=== PATIENT | female | born 1955 | race Caucasian/White ===

== ENCOUNTER 2016-06-01 10:11 | Observation (INO) | payer MEDICARE ==
[~2016-06-01] VITALS: Ht 165.1 cm; Wt 50.9 kg
[~2016-06-01 10:11] MED LIST changes: -ALB2.5NEB INH; -AUGM875T27 PO; -BACITAB3 PO; -INSUHUMDS SC; -LANTINJ4 SC; -LOSA25TA8 PO; -MAGN400T5 PO; -METO12TA PO; -MYCO1TAB PO; -PRED5TA PO; -PRESCAP6 PO; -SIMV20TA2 PO; -TACR1CAP3 PO; -TYLE325T5 PO
[2016-06-01 11:29] LABS: BASO % 0.3 % (0.0-1.0); EOS # 0.1 K/mm3 (0.0-0.50); EOS % 1.2 % (0.0-3.0); LARGE UNSTAINED CELL # 0.4 K/mm3 (0.0-0.4); LARGE UNSTAINED CELL % 4.4 % (0.0-4.0); LYMPH % 29.4 % (24.0-44.0); MEAN CORPUSCULAR HEMOGLOBIN 30.8 pg (27.0-33.0); MEAN CORPUSCULAR VOLUME 96.4 fl (80.0-96.0); MONO # 0.8 K/mm3 (0.0-0.8); MONO % 7.9 % (0.0-5.0); NEUTROPHILS # 5.7 K/mm3 (1.8-7.7); NEUTROPHILS % 56.8 % (36.0-66.0); PLATELET COUNT, AUTOMATED 242 k/mm3 (150-450); RED CELL DISTRIBUTION WIDTH 12.9 % (11.5-14.5); WHITE BLOOD COUNT 10.1 K/mm3 (4.0-10.0)
[2016-06-01 11:40] LABS: CREATININE FOR GFR 1.17 MG/DL (0.55-1.02); GLOMERULAR FILTRATION RATE 50.4 (>51); POTASSIUM SERUM 4.7 MEQ/L (3.5-5.1)
--- NOTE | 2016-06-01 11:46 | REP ---
Chest x-ray: Two views. History: Chest pain and cough. Comparison chest x-ray April 20, 2012. A chest CT is reviewed from January 09, 2013. Findings: There is a large pleural-based mass projecting in the left posterolateral chest wall superiorly unchanged from the 2012 prior study. There is peripherally calcified on chest CT from 2013. There is also calcific pleural plaquing along the left lateral chest wall which is unchanged from the 2012 study as well. Left hemidiaphragm is slightly elevated as before with blunting of the lateral pleural angle. These changes are chronic. There are surgical clips projecting in the right breast soft tissues as before. The lungs are otherwise clear. Pleural angles are sharp posteriorly. Heart is not enlarged. The aorta is slightly tortuous. Impression: No active cardiopulmonary disease. Chronic calcific pleural plaquing and chronic calcific pleural mass lesion seen on the left. Signed by Tawanda Rodriguez MD 06/01/2016 12:25 P
[2016-06-01] MEDS ORDERED: AZITHROMYCIN INJ 500MG VIAL (J0456) As Ordered ONE (12:17)
[2016-06-01] MEDS ORDERED: NS 1,000 ML IV SCH (13:19)
[2016-06-01] MEDS ORDERED: MAGN400T5 PO (13:23)
[2016-06-01] MEDS ORDERED: PRESCAP6 PO (13:23)
[2016-06-01] MEDS ORDERED: INSUHUMDS SC (13:23)
[2016-06-01] MEDS ORDERED: LOSA25TA8 PO (13:23)
[2016-06-01] MEDS ORDERED: METO12TA PO (13:23)
[2016-06-01] MEDS ORDERED: TYLE325T5 PO (13:23)
[2016-06-01] MEDS ORDERED: TACR1CAP3 PO (13:23)
[2016-06-01] MEDS ORDERED: LANTINJ4 SC (13:23)
[2016-06-01] MEDS ORDERED: MYCO1TAB PO (13:23)
[2016-06-01] MEDS ORDERED: BACITAB3 PO (13:23)
[2016-06-01] MEDS ORDERED: SIMV20TA2 PO (13:24)
[2016-06-01] MEDS ORDERED: PRED5TA PO (13:24)
[2016-06-01] MEDS ORDERED: ONDANSETRON 4MG/2ML VIAL (J2405) IV PRN (13:30)
[2016-06-01] MEDS: HEPARIN SOD (PORCINE) 5000 UNITS/ML VIAL SC SCH ×2 (14:00→22:00)
[2016-06-01 14:30] VITALS: BP 147/50
[2016-06-01] MEDS ORDERED: ALBUTEROL SULFATE 2.5 MG/0.5 ML INH NEB SOLN INH PRN (14:30)
[2016-06-01] MEDS ORDERED: guaiFENesin DM LIQ 10ML UD PO PRN (14:30)
--- NOTE | 2016-06-01 14:31 | EDDOCDS ---
Physician Documentation [facility] Name: Yadira Parra Age: 61 yrs Sex: Female : 1955 Arrival Date: 06/01/2016 Time: 10:11 Bed 8 Private MD: Kailey Bowen P Disposition: 06/01/16 12:33 Hospitalization ordered by [facility] Kirk for Inpatient Admission. Preliminary diagnosis are Acute pharyngitis, Fever, unspecified. - Bed requested for 4 [place]. - Status is Inpatient Admission. ml6 - Condition is Stable. - Problem is new. - Symptoms have improved. Historical: - Allergies: Halcion (hallucinations); Nifedipine (heart races); HYDRALAZINE (Unknown); - Home Meds: 1. tacrolimus 1 mg oral cap every 12 hours (Last dose: 06/01/2016 10:00) 2. Myfortic 180 mg oral TbEC twice a day (Last dose: 06/01/2016 10:00) 3. prednisone 5 mg Oral tab once daily (Last dose: 06/01/2016 10:00) 4. metoprolol tartrate 25 mg Oral tab 1 tab 2 times per day (Last dose: 06/01/2016 10:00) 5. magnesium oxide 400 mg Oral cap 400 mg twice a day (Last dose: 06/01/2016 10:00) 6. losartan oral 20 mg oral 1 tab once daily (Last dose: 06/01/2016 10:00) 7. Humalog 100 unit/mL Sub-Q crtg sliding scale TID 7 units at 0720 8. Lantus 100 unit/mL Sub-Q soln between 12-14 units at bedtime depending on her FSBS . 14 units kast PM - PMHx: Diabetes - IDDM: controlled; Hypertension; kidney transplant; end stage renal disease; ruptured pancreas; - PSHx: Rotator Cuff Repair- Left; Kidney Transplant- Left; Kidney Transplant- Right; Hip Arthroplasty, Left; Hip Arthroplasty, Right; Cataract Surgery- Bilateral; Cholecystectomy; Splenectomy; - Social history: Smoking status: Patient uses tobacco products, light tobacco smoker. No barriers to communication noted, The patient speaks fluent Croatian. - Family history: Not pertinent. - : The pt / caregiver states he / she is not on anticoagulants. Home medication list is obtained from the patient. - Exposure Risk Screening:: None identified. Vital Signs: 06/01 10:12 BP 156 / 97; Pulse 67; Resp 16; Temp 98.7(O); Pulse Ox 98% on R/A; Weight 53.52 kg / elp 117.99 lbs (R); Height 5 ft. 5 in. (165.10 cm) (R); 12:23 BP 144 / 81; Pulse 62; Resp 18; Temp 98.9(O); Pulse Ox 98% on R/A; Pain 0/10; srm 14:19 BP 138 / 74; Pulse 62; Resp 16; Temp 98.3(O); Pulse Ox 98% on R/A; Pain 0/10; ml6 10:12 Body Mass Index 19.64 (53.52 kg, 165.10 cm) elp MDM: 10:33 -Blood Culture (Adults Only), peripheral from different site, or from device/port/PICC fg etc. if present ordered. 10:33 Obtain sample by nasal aspiration ordered. fg 10:33 IV Saline Lock ordered. fg 10:35 CBC with Diff Ordered. EDMS 10:35 Basic Metabolic Profile Ordered. EDMS 10:35 -Blood Culture Ordered. EDMS 10:35 -Influenza A&B Rapid Antigen - Nose Ordered. EDMS 10:35 Chest, 2 View (pa\E\lat) Ordered. EDMS 11:03 -Blood Culture (Adults Only), peripheral from different site, or from device/port/PICC deg etc. if present complete. 11:04 BLOOD CULTURES Ordered. EDMS 11:40 Strep Screen, Nursing ordered. fg 11:51 Financial registration complete. lg 12:05 [facility] Payment Agreement was scanned into [employer] and attached to record. lg 12:13 azithromycin 500 mg IVPB once over 1 hrs; dilute in 250mL of D5W or NS ordered. fg 12:27 Lactic Acid (Scott tube on ice) Ordered. EDMS 13:24 Admission / Observation Status ordered. EDMS 13:24 CONSISTENT CARBOHYDRATES ordered. EDMS 13:24 2 GRAM SODIUM DIET ordered. EDMS 14:19 CT Chest without contrast Ordered. EDMS 14:20 RESPIRATORY PANEL Ordered. EDMS 14:20 SPUTUM CULTURE AND GRAM STAIN Ordered. EDMS 14:26 CARDIAC INJURY PROFILE Ordered. EDMS 14:26 CARDIAC INJURY PROFILE Ordered. EDMS 14:26 TROPONIN Ordered. EDMS 14:26 TROPONIN Ordered. EDMS Administered Medications: 12:23 Drug: azithromycin 500 mg [azithromycin 500 mg intravenous solution] Route: IVPB; srm Infused Over: 1 hrs; Site: right forearm; Signatures: Dispatcher [employer] EDLanie Hampton, Correction Officer Unit deg Tomasa Abreu RN RN kpj Ganter, LoriLee, Reg Reg lg Ruben Morgan RN RN ml6 Mariela Pham MD MD Haylee Lofton RN srm The chart was reviewed and I authenticate all verbal orders and agree with the evaluation and treatment provided.Attachments: 12:05 [facility] Payment Agreement lg MTDD
--- NOTE | 2016-06-01 14:31 | EDDOCDS ---
Nurse's Notes [facility] Name: Yadira Parra Age: 61 yrs Sex: Female : 1955 Arrival Date: 06/01/2016 Time: 10:11 Bed 8 Private MD: Kailey Bowen P Diagnosis: Acute pharyngitis;Fever, unspecified Presentation: 06/01 10:16 Presenting complaint: Patient states: cough congestion and fever x 1 week,is a kidney [facility] transplant pt. Dr Bowen sent pt here for admission. Adult Sepsis Screening: The patient does not have new or worsening altered mentation. Patient's respiratory rate is less than 22. Systolic blood pressure is greater than 100. Patient has a qSOFA score of 0- Negative Sepsis Screen. Suicide/Homicide risk assessment- the patient denies having any suicidal and/or homicidal ideations and does not present with any other emotional, behavioral or mental health complaints. Status: Patient is not a client services associate or dependent. Transition of care: patient was received from Nephrology office. 10:16 Acuity: STEVEN Level 3 [facility] 10:16 Method Of Arrival: Walkin/Carried/Asstd [facility] Triage Assessment: 10:30 General: Appears in no apparent distress, Behavior is appropriate for age, pleasant. j Pain: Denies pain. Pt Declines HIV testing. Neurological: Level of Consciousness is awake, alert, Oriented to person, place, time. Respiratory: Airway is patent Respiratory effort is even, unlabored, Respiratory pattern is regular, symmetrical, Reports cough that is non-productive. Derm: Skin is pink, warm & dry. Historical: - Allergies: Halcion (hallucinations); Nifedipine (heart races); HYDRALAZINE (Unknown); - Home Meds: 1. tacrolimus 1 mg oral cap every 12 hours (Last dose: 06/01/2016 10:00) 2. Myfortic 180 mg oral TbEC twice a day (Last dose: 06/01/2016 10:00) 3. prednisone 5 mg Oral tab once daily (Last dose: 06/01/2016 10:00) 4. metoprolol tartrate 25 mg Oral tab 1 tab 2 times per day (Last dose: 06/01/2016 10:00) 5. magnesium oxide 400 mg Oral cap 400 mg twice a day (Last dose: 06/01/2016 10:00) 6. losartan oral 20 mg oral 1 tab once daily (Last dose: 06/01/2016 10:00) 7. Humalog 100 unit/mL Sub-Q crtg sliding scale TID 7 units at 0720 8. Lantus 100 unit/mL Sub-Q soln between 12-14 units at bedtime depending on her FSBS . 14 units kast PM - PMHx: Diabetes - IDDM: controlled; Hypertension; kidney transplant; end stage renal disease; ruptured pancreas; - PSHx: Rotator Cuff Repair- Left; Kidney Transplant- Left; Kidney Transplant- Right; Hip Arthroplasty, Left; Hip Arthroplasty, Right; Cataract Surgery- Bilateral; Cholecystectomy; Splenectomy; - Social history: Smoking status: Patient uses tobacco products, light tobacco smoker. No barriers to communication noted, The patient speaks fluent Malaysian. - Family history: Not pertinent. - : The pt / caregiver states he / she is not on anticoagulants. Home medication list is obtained from the patient. - Exposure Risk Screening:: None identified. Screenin:03 Screening information is obtained from the patient. Fall risk: No risks identified. ml6 Assistance ADL's: requires no assistance with activities of daily living. Abuse/DV Screen: The patient / caregiver reports he/she is: not in a situation that causes fear, pain or injury. Nutritional screening: No deficits noted. Advance Directives: Currently, there is no health care proxy. home support is adequate. Assessment: 11:19 General: Appears in no apparent distress, comfortable, Behavior is appropriate for age, jo3 cooperative, pleasant. Neurological: Level of Consciousness is awake, alert, Oriented to person, place, time. Cardiovascular: No deficits noted. Respiratory: Airway is patent Respiratory effort is even, unlabored. Derm: Skin is pink, warm & dry. 11:32 General: Appears in no apparent distress, comfortable, Behavior is appropriate for age, ml6 cooperative. Pain: Denies pain. Neurological: No deficits noted. Level of Consciousness is awake, alert, Oriented to person, place, time. Cardiovascular: No deficits noted. Capillary refill < 3 seconds is brisk in bilateral fingers toes Heart tones S1 S2 present Edema is absent. Pulses are all present. 12:23 General: Appears in no apparent distress, comfortable, Behavior is appropriate for age, ml6 cooperative. Pain: Denies pain. Neurological: No deficits noted. Level of Consciousness is awake, alert, Oriented to person, place, time. Cardiovascular: No deficits noted. Capillary refill < 3 seconds is brisk in bilateral fingers toes Heart tones S1 S2 present Edema is absent. Pulses are all present. Respiratory: No deficits noted. Airway is patent Respiratory effort is even, unlabored, Respiratory pattern is regular, symmetrical, Breath sounds are clear bilaterally. 13:30 Reassessment: Patient appears in no apparent distress at this time. Patient denies pain ml6 at this time. Patient states feeling better. Patient states symptoms have improved. 14:17 General: Appears in no apparent distress, comfortable, Behavior is appropriate for age, ml6 cooperative. Pain: Denies pain. Neurological: No deficits noted. Level of Consciousness is awake, alert, Oriented to person, place, time. Cardiovascular: No deficits noted. Capillary refill < 3 seconds is brisk in bilateral fingers toes. Respiratory: No deficits noted. Airway is patent Respiratory effort is even, unlabored, Respiratory pattern is regular, symmetrical, Breath sounds are clear. GI: No deficits noted. Abdomen is flat, non- distended Bowel sounds present X 4 quads. Vital Signs: 10:12 BP 156 / 97; Pulse 67; Resp 16; Temp 98.7(O); Pulse Ox 98% on R/A; Weight 53.52 kg (R); elp Height 5 ft. 5 in. (165.10 cm) (R); 12:23 BP 144 / 81; Pulse 62; Resp 18; Temp 98.9(O); Pulse Ox 98% on R/A; Pain 0/10; srm 14:19 BP 138 / 74; Pulse 62; Resp 16; Temp 98.3(O); Pulse Ox 98% on R/A; Pain 0/10; ml6 10:12 Body Mass Index 19.64 (53.52 kg, 165.10 cm) el Vitals: 10:12 Log In Time: June 01, 2016 at 10:09. elp 12:03 Strep Screen is obtained and tested: Positive. ml6 ED Course: 10:11 Patient visited by Cami Short PCA. elp 10:11 Patient moved to Waiting elp 10:12 Kailey Bowen is Private Physician. elp 10:14 Patient visited by Patchen, Cami, PATIENT SVCS MGR. elp 10:14 Patient moved to Pre RCE elp 10:18 Triage Initiated kpj 10:32 Patient moved to 8 [facility] 11:03 Mariela Pham MD is Attending Physician. fg 11:03 Patient visited by Mariela Pham MD. fg 11:16 Patient visited by Ruben Morgan, RN. ml6 11:17 BLOOD CULTURES Sent. ml6 11:18 Inserted saline lock: 20 gauge in right forearm. Labs drawn. (by ED staff). Sent per jo3 order to lab. Labs/Blood culture drawn. 11:19 Patient visited by Mar Roach,ALONDRA. jo3 12:03 Patient visited by Ruben Morgan, RN. ml6 12:03 The patient / caregiver is instructed regarding the plan of care and ED course. ml6 12:05 [facility] Payment Agreement was scanned into [employer] and attached to record. lg 12:24 Patient visited by Haylee Lofton RN. srm 12:28 Van Kirk is Hospitalizing Provider. fg 12:31 Chest, 2 View (pa\E\lat) Returned. EDMS 12:59 Lactic Acid (Scott tube on ice) Sent. ct3 14:09 No procedures done that require assistance. ml6 Administered Medications: 12:23 Drug: azithromycin 500 mg [azithromycin 500 mg intravenous solution] Route: IVPB; srm Infused Over: 1 hrs; Site: right forearm; Order Results: Lab Order: CBC with Diff; SPEC'M 06/01/16 10:59 Test: WHITE BLOOD COUNT; Value: 10.1; Range: 4.0-10.0; Abnormal: Above high normal; Units: K/mm3; Status: F Test: RED BLOOD COUNT; Value: 4.71; Range: 4.00-5.40; Units: M/mm3; Status: F Test: HEMOGLOBIN; Value: 14.5; Range: 12.0-16.0; Units: g/dl; Status: F Test: HEMATOCRIT; Value: 45.4; Range: 36.0-47.0; Units: %; Status: F Test: MEAN CORPUSCULAR VOLUME; Value: 96.4; Range: 80.0-96.0; Abnormal: Above high normal; Units: fl; Status: F Test: MEAN CORPUSCULAR HEMOGLOBIN; Value: 30.8; Range: 27.0-33.0; Units: pg; Status: F Test: MEAN CORPUSCULAR HGB CONC; Value: 32.0; Range: 32.0-36.5; Units: g/dl; Status: F Test: RED CELL DISTRIBUTION WIDTH; Value: 12.9; Range: 11.5-14.5; Units: %; Status: F Test: PLATELET COUNT, AUTOMATED; Value: 242; Range: 150-450; Units: k/mm3; Status: F Test: NEUTROPHILS %; Value: 56.8; Range: 36.0-66.0; Units: %; Status: F Test: LYMPH %; Value: 29.4; Range: 24.0-44.0; Units: %; Status: F Test: MONO %; Value: 7.9; Range: 0.0-5.0; Abnormal: Above high normal; Units: %; Status: F Test: EOS %; Value: 1.2; Range: 0.0-3.0; Units: %; Status: F Test: BASO %; Value: 0.3; Range: 0.0-1.0; Units: %; Status: F Test: LARGE UNSTAINED CELL %; Value: 4.4; Range: 0.0-4.0; Abnormal: Above high normal; Units: %; Status: F Test: NEUTROPHILS #; Value: 5.7; Range: 1.8-7.7; Units: K/mm3; Status: F Test: LYMPH #; Value: 3.0; Range: 1.5-4.5; Units: K/mm3; Status: F Test: MONO #; Value: 0.8; Range: 0.0-0.8; Units: K/mm3; Status: F Test: EOS #; Value: 0.1; Range: 0.0-0.50; Units: K/mm3; Status: F Test: BASO #; Value: 0.0; Range: 0.0-0.2; Units: K/mm3; Status: F Test: LARGE UNSTAINED CELL #; Value: 0.4; Range: 0.0-0.4; Units: K/mm3; Status: F Lab Order: Basic Metabolic Profile; [facility]' 06/01/16 10:59 Test: GLUCOSE, FASTING; Value: 226; Range: 70-105; Abnormal: Above high normal; Units: MG/DL; Status: F Test: BLOOD UREA NITROGEN; Value: 23; Range: 7-18; Abnormal: Above high normal; Units: MG/DL; Status: F Test: CREATININE FOR GFR; Value: 1.17; Range: 0.55-1.02; Abnormal: Above high normal; Units: MG/DL; Status: F Test: GLOMERULAR FILTRATION RATE; Value: 50.4; Range: >51; Abnormal: Below low normal; Status: F Test: SODIUM LEVEL; Value: 140; Range: 136-145; Units: MEQ/L; Status: F Test: POTASSIUM SERUM; Value: 4.7; Range: 3.5-5.1; Units: MEQ/L; Status: F Test: CHLORIDE LEVEL; Value: 107; Range: 98-107; Units: MEQ/L; Status: F Test: CARBON DIOXIDE LEVEL; Value: 23; Range: 21-32; Units: MEQ/L; Status: F Test: ANION GAP; Value: 10; Range: 8-16; Units: MEQ/L; Status: F Test: CALCIUM LEVEL; Value: 9.0; Range: 8.5-10.1; Units: MG/DL; Status: F Test Note: ; Units are mL/min/1.73 m2 Chronic Kidney Disease Staging per NKF: Stage I & II GFR >=60 Normal to Mildly Decreased Stage III GFR 30-59 Moderately Decreased Stage IV GFR 15-29 Severely Decreased Stage V GFR <15 Very Little GFR Left ESRD GFR <15 on INCIDENT RESPONSE ANALYST Lab Order: -Influenza A&B Rapid Antigen - Nose; SPEC'M 06/01/16 10:59 Test: INFLUENZA A RAPID SCR by ICA; Value: INFLUENZA A RESULTS NEGATIVE; Status: F Test: INFLUENZA A RAPID SCR by ICA; Value: Comments:; Status: F Test: INFLUENZA B RAPID SCR by ICA; Value: INFLUENZA B RESULTS NEGATIVE; Status: F Test Note: ; The Influenza test is a direct rapid immunoassay for the qualitative detection of Influenza viral antigen. Cell culture (Viral Culture) testing should be considered to confirm NEGATIVE results and to assist in detecting other viruses that can provide similar clinical symptoms. Please contact the lab within 24 hours ([phone]) if confirmatory testing is desired. Lab Order: Lactic Acid (Scott tube on ice); SPEC'M 06/01/16 12:53 Test: LACTIC ACID SEPSIS PROTOCOL; Value: 0.7; Range: 0.4-2.0; Units: MMOL/L; Status: F Radiology Order: Chest, 2 View (pa\E\lat) Test: Chest, 2 View (pa\E\lat) REASON FOR EXAMINATION: Chest Pain;Cough; Chest x-ray: Two views.; ; History: Chest pain and cough.; ; Comparison chest x-ray April 20, 2012. A chest CT is reviewed from 2012.; ; Findings: There is a large pleural-based mass projecting in the left; posterolateral chest wall superiorly unchanged from the 2012 prior study. There; is peripherally calcified on chest CT from 2012. There is also calcific pleural; plaquing along the left lateral chest wall which is unchanged from the 2012 study; as well. Left hemidiaphragm is slightly elevated as before with blunting of the; lateral pleural angle. These changes are chronic. There are surgical clips; projecting in the right breast soft tissues as before. The lungs are otherwise; clear. Pleural angles are sharp posteriorly. Heart is not enlarged. The aorta; is slightly tortuous.; ; Impression:; ; No active cardiopulmonary disease. Chronic calcific pleural plaquing and chronic; calcific pleural mass lesion seen on the left.; ; ; Signed by; Tawanda Rodriguez MD 06/01/2016 12:25 P; Outcome: 12:33 Decision to Hospitalize by Provider. fg 14:08 Discharge Assessment: patient administered narcotics - no. The following High Risk ml6 Discharge criteria are identified: None. No special radiology studies were completed. Admission hand-off: Report Faxed Fax receipt verified by ALONDRA Crystal. Property :Personal belongings accompany Pt. 14:09 Condition: stable. ml6 14:31 Patient left the ED. ml6 Signatures: Dispatcher [employer] EDMS Tomasa Abreu RN RN kpj Michelson, Staci, RN RN srm Ganter, LoriLee, Seth Reg Mar Zhang RN RN jo3 Lowe, Matthew, RN RN ml6 Tricia Hardy, PATIENT SVCS MGR PATIENT SVCS MGR ct3 Cami Short, PATIENT SVCS MGR PATIENT SVCS MGR elp Mariela Pham MD MD fg Corrections: (The following items were deleted from the chart) : 12: General: Appears in no apparent distress, comfortable, Behavior is appropriate ml6 for age, cooperative, srm : 12: Pain: Denies pain. srm ml6 : 12: Neurological: No deficits noted. Level of Consciousness is awake, alert, Oriented ml6 to person, place, time, srm : 12: Cardiovascular: No deficits noted. Capillary refill < 3 seconds is brisk in ml6 bilateral fingers toes Heart tones S1 S2 present Edema is absent. Pulses are all present. srm : 12: Respiratory: No deficits noted. Airway is patent Respiratory effort is even, ml6 unlabored, Respiratory pattern is regular, symmetrical, Breath sounds are clear bilaterally. srm MTDD
--- NOTE | 2016-06-01 14:46 | HPEPDOC ---
Medical History and Physical Date of Admission Jun 01, 2016 at 13:19 History and Physical PRIMARY CARE PROVIDER: ATTENDING: Lauren Wyatt MD CHIEF COMPLAINT: Cough/fevers HISTORY OF PRESENT ILLNESS: This 61-year-old female past medical history of renal transplant 2 for end- stage renal disease (ANCA vasculitis) anemia of chronic kidney disease, history of chronic A. fib on beta ingrid and aspirin, hypertension, diabetes who presents from Dr. Lovelace office with fevers and cough. Patient states she's been having rectal cough of yellow sputum over the past week. Had fevers of 101. Sick contacts include her granddaughter who had influenza a last week. No chest pain/palpitations. Patient also states that's her tongue is very erythematous and sensitive. No tongue swelling, difficulty breathing, dysphagia. She has been told by Dr. Bowen that her renal function is a bit worse recently , given the combination of her current symptoms that he would like her to come to the hospital to be admitted. PAST MEDICAL HISTORY: As per HPI PAST SURGICAL HISTORY: Rotator cuff repair on the left, kidney transplant 2 left and right; 1991 and 2013, bilateral hip arthroplasty, cataract surgery bilaterally, cholecystectomy, splenectomy, pancreatic rupture SOCIAL HISTORY: Smokes half pack per day 40 years, occasional who called the weekends, no illicit drug use. FAMILY HISTORY: Noncontributory ALLERGIES: Please see below. REVIEW OF SYSTEMS: HEENT: Denies sore throat/headache CARDIOVASCULAR: Denies chest pain/palpitations RESPIRATORY: + shortness of breath/cough GASTROINTESTINAL: denies nausea/vomiting GENITOURINARY: Denies dysuria/urinary urgency. MUSCULOSKELETAL: Denies myalgias/arthralgias NEUROLOGICAL: Denies any focal weakness Rest of ROS negative. HOME MEDICATIONS: Please see below. PHYSICAL EXAMINATION: Vitals: (see below) General: No acute distress, laying comfortably in bed. HEENT: Moist mucous membranes. Tongue is red, not swollen. Pharyngeal erythema, no exudates. Airway patent. Neck: No JVD or lymphadenopathy Cardiac: RRR, No murmurs Pulm: Exp wheezing and rhonchi b/l. No crackles or stridor. Abd: NT/ND + BS Ext: No edema or cyanosis LABORATORY DATA: See below. IMAGING: CXR 06/01/16 Impression: No active cardiopulmonary disease. Chronic calcific pleural plaquing and chronic calcific pleural mass lesion seen on the left. MICROBIOLOGY: Please see below. ASSESSMENT/PLAN: Acute bronchitis with positive strep in the ED- patient is having significant amount of wheezing. S/p azithromycin the ED. Will start a course of augmentin. Continue nebs, patient's home steroids, Mucinex. IV fluids. Cultures pending. KRISTA on CKD - history of kidney transplant 2 in 1991 in 2013. History of ANCA vasculitis. We'll give gentle hydration. Avoid nephrotoxins. If renal function does not improve consider consulting nephrology. Cont pt's home meds. IDDM - cont levemir/novolog, which pt takes at home. HTN - controlled. Cont home meds. DVT prophy - heparin SQ. Pt will be followed by Dr. Kathy Hinds starting 06/02/16 at 7am. Vital Signs BP: 144/81, HR: 62, RR: 16, Afebrile, O2 sat 98% RA. Laboratory Data Labs 24H Laboratory Tests 2 06/01/16 10:59: Anion Gap 10, White Blood Count 10.1H, Red Blood Count 4.71, Hemoglobin 14.5, Hematocrit 45.4, Mean Corpuscular Volume 96.4H, Mean Corpuscular Hemoglobin 30.8 , Mean Corpuscular Hemoglobin Concent 32.0, Red Cell Distribution Width 12.9, Platelet Count 242, Neutrophils (%) (Auto) 56.8, Lymphocytes (%) (Auto) 29.4, Monocytes (%) (Auto) 7.9H, Eosinophils (%) (Auto) 1.2, Basophils (%) (Auto) 0.3 , Neutrophils # (Auto) 5.7, Lymphocytes # (Auto) 3.0, Monocytes # (Auto) 0.8, Eosinophils # (Auto) 0.1, Basophils # (Auto) 0.0, Blood Urea Nitrogen 23H, Creatinine 1.17H, Sodium Level 140, Potassium Level 4.7, Chloride Level 107, Carbon Dioxide Level 23, Calcium Level 9.0, Glomerular Filtration Rate 50.4L, Large Unclassified Cells # 0.4, Large Unclassified Cells % 4.4H 06/01/16 12:53: Lactic Acid (Sepsis) 0.7 CBC/BMP Laboratory Tests 06/01/16 10:59 Calcium Level 9.0, Red Blood Count 4.71, Mean Corpuscular Volume 96.4 H, Mean Corpuscular Hemoglobin 30.8, Mean Corpuscular Hemoglobin Concent 32.0, Red Cell Distribution Width 12.9, Neutrophils (%) (Auto) 56.8, Lymphocytes (%) (Auto) 29.4, Monocytes (%) (Auto) 7.9 H, Eosinophils (%) (Auto) 1.2, Basophils (%) ( Auto) 0.3, Neutrophils # (Auto) 5.7, Lymphocytes # (Auto) 3.0, Monocytes # (Auto ) 0.8, Eosinophils # (Auto) 0.1, Basophils # (Auto) 0.0 Microbiology Microbiology 06/01/16 Blood Culture, Received Pending 06/01/16 Blood Culture, Received Pending 06/01/16 Influenza Virus Type A Antigen - Final, Complete 06/01/16 Influenza Virus Type B Antigen - Final, Complete Home Medications Scheduled (Mycophenolic Acid Dr) 180 Mg Tab 540 MG PO BID (Preservision Areds 2) 1 Cap Cap 1 CAP PO DAILY Insulin Glargine (Lantus Solostar) 100 Unit/Ml Inj 14 UNITS SC QHS 12-14 UNITS Insulin Human Lispro (Humalog) 1 Units/0.01 Ml Inj 1 DOSE SC AC Lactobacillus Acidophilus (Bacid) 1 Tab Tab 1 TAB PO DAILY Losartan Potassium (Losartan Potassium) 25 Mg Tab 25 MG PO DAILY Magnesium Oxide (Magnesium Oxide 400) 400 Mg Tab 400 MG PO BID Metoprolol Tartrate (Metoprolol Tartrate) 25 Mg Tab 25 MG PO BID Prednisone (Prednisone) 5 Mg Tab 5 MG PO DAILY Simvastatin (Simvastatin) 20 Mg Tab 20 MG PO QHS Tacrolimus (Tacrolimus) 1 Mg Cap 1 MG PO BID Scheduled PRN Acetaminophen (Tylenol) 325 Mg Tab 650 MG PO Q4H PRN PRN PAIN Allergies Coded Allergies: Triazolam (Verified Allergy, Intermediate, RASH, 07/29/12) Hydralazine (Verified Allergy, Unknown, 07/29/12) Nifedipine (Verified Adverse Reaction, Intermediate, TACHYCARDIA, 07/29/12) LAUREN WYATT MD Jun 01, 2016 14:45
--- NOTE | 2016-06-01 15:41 | REP ---
CT of the chest without IV contrast: Comparison is the chest CT dated 09/26/2011 as well as the PA and lateral plain film study of the chest performed earlier today. There are two calcific pleural plaques in the left hemithorax: One along the left lateral chest wall measuring 5.1 cm craniocaudad by 2.9 cm transverse, , not significantly changed from the prior study. The other is along the posterior lateral left chest wall measuring 4.6 cm craniocaudad by 4.7 cm transverse, not significantly changed. On both of these pleural masses are calcified with rim calcification and internal calcification. Additionally there is low density soft tissues within these masses measuring 13 HU compatible with fluid, compatible with cysts. On the prior study. There were bilateral pleural effusions. These have resolved. There are linear densities in the lower lobes suggestive of atelectasis versus scarring. There is a 4 mm pleural-based nodule posteriorly in the right upper lobe on image 38. This area was obscured by the pleural effusion previously. No other nodules are identified. There are is borderline mediastinal adenopathy. The azygos node measures 8 mm diameter of the normal fatty hilus. This is normal size for this node. There is no axillary adenopathy. The absence of IV contrast the study is insensitive for hilar adenopathy. The ascending thoracic aorta measures 4 cm diameter and is mildly dilated. This is not significantly changed. Cardiac size is normal. There is no pericardial effusion. The visualized upper abdominal upper abdomen demonstrates marked bilateral renal cortical atrophy and bilateral renal calculi. The visualized hepatic parenchyma is unremarkable. There is a cholecystectomy. There are calcifications within the elias hepatis, likely within the common duct, unchanged from the prior study. The patient poorly has a splenectomy. There is no adrenal mass. Impression: Stable calcified pleural masses on the left as described with low-density centers. These could be calcified pleural cysts are to be pleural masses and cystic degeneration. Linear densities in the lung bases which could represent atelectasis or scarring. There is a 4 mm pleural-based nodule posteriorly in the right upper lobe on image 38. Follow-up for a nodules this size in a low risk patient is follow-up CT at 12 months, if no change and no further imaging needed. For high risk patient initial follow-up at 6-12 months and 918-24 months. There are no changes. Cholecystectomy. Calcifications in the elias hepatis, possibly within the common biliary duct, but unchanged from the comparison study. Signed by Chandu Doyle MD 06/01/2016 03:32 P
[2016-06-01] MEDS: IPRATROPIUM 0.5MG/ALBUTEROL 2.5MG INH SOL UD 3ML (DUONEB)(J7620) NEB SCH ×3 (16:00→23:45)
[2016-06-01] MEDS ORDERED: GLUCOSE 4 GM CHEW TABLET PO PRN (16:00)
[2016-06-01] MEDS ORDERED: DEXTROSE 50% 50 ML SYRINGE IV PRN (16:00)
[2016-06-01] MEDS ORDERED: GLUCAGON FOR INJ 1 MG VIAL (J1610) SC PRN (16:00)
[2016-06-01] MEDS ORDERED: HumaLOG INSULIN (NovoLOG) PER UNIT SC SCH ×2 (17:30→21:00)
[2016-06-01 18:00] VITALS: BP 155/70
[2016-06-01 18:05] VITALS: BP 147/50
[2016-06-01] MEDS: HumaLOG INSULIN (NovoLOG) PER UNIT SC SCH (19:05)
[2016-06-01 20:20] VITALS: BP 149/73
[2016-06-01] MEDS ORDERED: SIMVASTATIN 20 MG TAB PO SCH (21:00)
[2016-06-01] MEDS ORDERED: LEVEMIR (INSULIN DETEMIR) 1 UNITS/0.01ML SC SCH (21:00)
[2016-06-01] MEDS ORDERED: predniSONE 5 MG TAB PO SCH (22:00)
[2016-06-01] MEDS: AUGMENTIN 500 MG TAB PO SCH (22:05)
[2016-06-01] MEDS: TACROLIMUS 1 MG CAP (J7507) PO SCH (22:06)
[2016-06-01] MEDS: ACETAMINOPHEN TAB 650MG DOSE (2X325MG) PO PRN (22:06)
[2016-06-01] MEDS: MAGNESIUM OXIDE 400 MG TAB (MAG-OX) PO SCH (22:07)
[2016-06-01] MEDS: METOPROLOL TART 25 MG TABLET PO SCH (22:07)
[2016-06-02 02:00] VITALS: BP 146/79
[2016-06-02] MEDS: IPRATROPIUM 0.5MG/ALBUTEROL 2.5MG INH SOL UD 3ML (DUONEB)(J7620) NEB SCH ×4 (03:46→15:39)
[2016-06-02] MEDS: HEPARIN SOD (PORCINE) 5000 UNITS/ML VIAL SC SCH ×2 (04:33→13:44)
[2016-06-02 05:35] VITALS: BP 126/86
[2016-06-02 07:12] LABS: MEAN CORPUSCULAR HEMOGLOBIN 30.5 pg (27.0-33.0); MEAN CORPUSCULAR HGB CONC 31.6 g/dl (32.0-36.5); MEAN CORPUSCULAR VOLUME 96.7 fl (80.0-96.0); RED CELL DISTRIBUTION WIDTH 12.8 % (11.5-14.5); WHITE BLOOD COUNT 7.4 K/mm3 (4.0-10.0)
[2016-06-02 07:38] LABS: ANION GAP 10 MEQ/L (8-16); BLOOD UREA NITROGEN 16 MG/DL (7-18); CALCIUM LEVEL 8.6 MG/DL (8.5-10.1); CARBON DIOXIDE LEVEL 19 MEQ/L (21-32); CHLORIDE LEVEL 115 MEQ/L (98-107); CREATININE FOR GFR 0.98 MG/DL (0.55-1.02); GLOMERULAR FILTRATION RATE > 60.0 (>51); GLUCOSE, FASTING 167 MG/DL (70-105); MAGNESIUM LEVEL 2.1 MG/DL (1.8-2.4); SODIUM LEVEL 144 MEQ/L (136-145)
[2016-06-02] MEDS: ACETAMINOPHEN TAB 650MG DOSE (2X325MG) PO PRN (08:56)
[2016-06-02] MEDS: HumaLOG INSULIN (NovoLOG) PER UNIT SC SCH ×2 (08:57→13:44)
[2016-06-02] MEDS ORDERED: LOSARTAN 25 MG TAB PO SCH (09:00)
[2016-06-02] MEDS ORDERED: MYCOPHENOLIC 180 MG PO SCH (09:00)
[2016-06-02] MEDS ORDERED: OCUVITE 1 TAB PO SCH (09:00)
[2016-06-02] MEDS ORDERED: ENTER DRUG NAME HERE (PATIENT'S OWN MED) PO SCH (09:00)
[2016-06-02] MEDS ORDERED: LACTOBACILLUS ACIDOPHILUS CAP (BACID) PO SCH (09:00)
[2016-06-02 10:00] VITALS: BP 137/82
[2016-06-02] MEDS: AUGMENTIN 500 MG TAB PO SCH (10:14)
[2016-06-02 10:15] VITALS: BP 126/86
[2016-06-02] MEDS: METOPROLOL TART 25 MG TABLET PO SCH (10:15)
[2016-06-02] MEDS: TACROLIMUS 1 MG CAP (J7507) PO SCH (10:15)
[2016-06-02] MEDS: MAGNESIUM OXIDE 400 MG TAB (MAG-OX) PO SCH (10:15)
--- NOTE | 2016-06-02 10:21 | IPNPDOC ---
Subjective General Date Seen The patient was seen on 06/02/16. Subjective Chief Complaint/HPI The patient is a 61-year-old female admitted with a reason for visit of Acute Bronchitis Acute Kidney Injury. Events since last encounter cough a little better. however still cannot bring up any phlegm. Objective Physical Examination General Exam: Positive: Alert, No Acute Distress Eye Exam: Positive: Conjunctiva & lids normal, EOMI, PERRLA, Negative: Sclera icteric ENT Exam: Positive: Atraumatic, Mucous membr. moist/pink, Pharynx Normal Neck Exam: Positive: Supple, Negative: JVD, thyromegaly Chest Exam: Positive: Rales, Rhonchi Heart Exam: Positive: Normal S1, Normal S2, Rate Normal, Regular Rhythm, Negative: Murmurs, Rubs Abdomen Exam: Positive: Normal bowel sounds, Soft, Negative: Hepatospenomegaly, Tenderness Extremity Exam: Positive: Normal pulses, Negative: Clubbing, Cyanosis, Edema Assessment /Plan Problems Problems: (1) Acute bronchitis Status: Acute Problem Text: will continue with nebs and azithromycin (2) KRISTA (acute kidney injury) Status: Acute Problem Text: possibly from mild dehydration will continue monitor renal functions. (3) Diabetes Status: Chronic Problem Text: continue with insulin (4) Hypertension Status: Chronic Problem Text: continue with losartan and metoprolol. (5) Hyperlipidemia Status: Chronic (6) Afib Status: Chronic (7) Pleural mass Status: Chronic Problem Text: possibley from old vasculitic disease. (8) ANCA-positive vasculitis Status: Chronic Problem Text: history of ANCA vasculitis which caused renal failure and ESRD. s/p renal transplant x 2 first in 1991 second in 2013 both living donor. will continue with tacrolimus, prednisone. Plan/VTE VTE Prophylaxis Ordered?: Yes VS, I&O, 24H, Fishbone Vital Signs/I&O Vital Signs Date Time Temp Pulse Resp B/P Pulse Ox O2 Delivery O2 Flow Rate FiO2 06/02/16 05:35 97.4 98 18 126/86 96 Room Air I&O- Last 24 Hours up to 6 AM 06/02/16 06:00 Intake Total 1080 ml Output Total 1650 ml Balance -570 ml Laboratory Data 24H LABS Laboratory Tests 2 06/01/16 10:59: Anion Gap 10, White Blood Count 10.1H, Red Blood Count 4.71, Hemoglobin 14.5, Hematocrit 45.4, Mean Corpuscular Volume 96.4H, Mean Corpuscular Hemoglobin 30.8 , Mean Corpuscular Hemoglobin Concent 32.0, Red Cell Distribution Width 12.9, Platelet Count 242, Neutrophils (%) (Auto) 56.8, Lymphocytes (%) (Auto) 29.4, Monocytes (%) (Auto) 7.9H, Eosinophils (%) (Auto) 1.2, Basophils (%) (Auto) 0.3 , Neutrophils # (Auto) 5.7, Lymphocytes # (Auto) 3.0, Monocytes # (Auto) 0.8, Eosinophils # (Auto) 0.1, Basophils # (Auto) 0.0, Blood Urea Nitrogen 23H, Creatinine 1.17H, Sodium Level 140, Potassium Level 4.7, Chloride Level 107, Carbon Dioxide Level 23, Calcium Level 9.0, Glomerular Filtration Rate 50.4L, Large Unclassified Cells # 0.4, Large Unclassified Cells % 4.4H 06/01/16 12:53: Lactic Acid (Sepsis) 0.7 06/01/16 14:39: Creatine Kinase MB 1.4, Creatine Kinase MB Relative Index 1.22, Total Creatine Kinase 114, Troponin I 0.02 06/01/16 16:34: Bedside Glucose (Misc Panel) 136H 06/01/16 20:18: Bedside Glucose (Misc Panel) 197H 06/01/16 21:50: Creatine Kinase MB 1.4, Creatine Kinase MB Relative Index 1.30, Total Creatine Kinase 107, Troponin I 0.02 06/02/16 06:18: Creatine Kinase MB 1.8, Creatine Kinase MB Relative Index 1.68, Total Creatine Kinase 107, Troponin I < 0.02, Anion Gap 10, Blood Urea Nitrogen 16, Creatinine 0.98, Sodium Level 144, Potassium Level 5.0, Chloride Level 115H, Carbon Dioxide Level 19L, Calcium Level 8.6, Glomerular Filtration Rate > 60.0, Magnesium Level 2.1 CBC/BMP Laboratory Tests 06/01/16 10:59 Calcium Level 9.0, Red Blood Count 4.71, Mean Corpuscular Volume 96.4 H, Mean Corpuscular Hemoglobin 30.8, Mean Corpuscular Hemoglobin Concent 32.0, Red Cell Distribution Width 12.9, Neutrophils (%) (Auto) 56.8, Lymphocytes (%) (Auto) 29.4, Monocytes (%) (Auto) 7.9 H, Eosinophils (%) (Auto) 1.2, Basophils (%) ( Auto) 0.3, Neutrophils # (Auto) 5.7, Lymphocytes # (Auto) 3.0, Monocytes # (Auto ) 0.8, Eosinophils # (Auto) 0.1, Basophils # (Auto) 0.0 06/02/16 06:18 Calcium Level 8.6, Red Blood Count 4.13, Mean Corpuscular Volume 96.7 H, Mean Corpuscular Hemoglobin 30.5, Mean Corpuscular Hemoglobin Concent 31.6 L, Red Cell Distribution Width 12.8, Total Creatine Kinase 107 Microbiology Microbiology 06/01/16 Blood Culture, Received Pending 06/01/16 Blood Culture, Received Pending 06/01/16 Gram Stain - Final, Resulted 06/01/16 Sputum Culture, Resulted Pending 06/01/16 Respiratory Virus Panel (PCR) (HONEY) - Final, Complete 06/01/16 Influenza Virus Type A Antigen - Final, Complete 06/01/16 Influenza Virus Type B Antigen - Final, Complete RONAK LILLY MD Jun 02, 2016 10:21
[2016-06-02 14:00] VITALS: BP 140/78
[2016-06-02] MEDS ORDERED: AUGM875T27 PO (15:36)
[2016-06-02] MEDS ORDERED: ALB2.5NEB INH (15:36)
--- NOTE | 2016-06-03 15:32 | EDDOCDS ---
Physician Documentation [facility] Name: Yadira Parra Age: 61 yrs Sex: Female : 1955 Arrival Date: 06/01/2016 Time: 10:11 Bed 8 Private MD: Kailey Bowen P Disposition: 06/01/16 12:33 Hospitalization ordered by [facility] for Inpatient Admission. Preliminary diagnosis are Acute pharyngitis, Fever, unspecified. - Bed requested for 4 [place]. - Status is Inpatient Admission. ml6 - Condition is Stable. - Problem is new. - Symptoms have improved. Historical: - Allergies: Halcion (hallucinations); Nifedipine (heart races); HYDRALAZINE (Unknown); - Home Meds: 1. tacrolimus 1 mg oral cap every 12 hours (Last dose: 06/01/2016 10:00) 2. Myfortic 180 mg oral TbEC twice a day (Last dose: 06/01/2016 10:00) 3. prednisone 5 mg Oral tab once daily (Last dose: 06/01/2016 10:00) 4. metoprolol tartrate 25 mg Oral tab 1 tab 2 times per day (Last dose: 06/01/2016 10:00) 5. magnesium oxide 400 mg Oral cap 400 mg twice a day (Last dose: 06/01/2016 10:00) 6. losartan oral 20 mg oral 1 tab once daily (Last dose: 06/01/2016 10:00) 7. Humalog 100 unit/mL Sub-Q crtg sliding scale TID 7 units at 0720 8. Lantus 100 unit/mL Sub-Q soln between 12-14 units at bedtime depending on her FSBS . 14 units kast PM - PMHx: Diabetes - IDDM: controlled; Hypertension; kidney transplant; end stage renal disease; ruptured pancreas; - PSHx: Rotator Cuff Repair- Left; Kidney Transplant- Left; Kidney Transplant- Right; Hip Arthroplasty, Left; Hip Arthroplasty, Right; Cataract Surgery- Bilateral; Cholecystectomy; Splenectomy; - Social history: Smoking status: Patient uses tobacco products, light tobacco smoker. No barriers to communication noted, The patient speaks fluent Hebrew. - Family history: Not pertinent. - : The pt / caregiver states he / she is not on anticoagulants. Home medication list is obtained from the patient. - Exposure Risk Screening:: None identified. Vital Signs: 06/01 10:12 BP 156 / 97; Pulse 67; Resp 16; Temp 98.7(O); Pulse Ox 98% on R/A; Weight 53.52 kg / elp 117.99 lbs (R); Height 5 ft. 5 in. (165.10 cm) (R); 12:23 BP 144 / 81; Pulse 62; Resp 18; Temp 98.9(O); Pulse Ox 98% on R/A; Pain 0/10; srm 14:19 BP 138 / 74; Pulse 62; Resp 16; Temp 98.3(O); Pulse Ox 98% on R/A; Pain 0/10; ml6 10:12 Body Mass Index 19.64 (53.52 kg, 165.10 cm) elp MDM: 10:33 -Blood Culture (Adults Only), peripheral from different site, or from device/port/PICC fg etc. if present ordered. 10:33 Obtain sample by nasal aspiration ordered. fg 10:33 IV Saline Lock ordered. fg 10:35 CBC with Diff Ordered. EDMS 10:35 Basic Metabolic Profile Ordered. EDMS 10:35 -Blood Culture Ordered. EDMS 10:35 -Influenza A&B Rapid Antigen - Nose Ordered. EDMS 10:35 Chest, 2 View (pa\E\lat) Ordered. EDMS 11:03 -Blood Culture (Adults Only), peripheral from different site, or from device/port/PICC deg etc. if present complete. 11:04 BLOOD CULTURES Ordered. EDMS 11:40 Strep Screen, Nursing ordered. fg 11:51 Financial registration complete. lg 12:05 [facility] Payment Agreement was scanned into [employer] and attached to record. lg 12:13 azithromycin 500 mg IVPB once over 1 hrs; dilute in 250mL of D5W or NS ordered. fg 12:27 Lactic Acid (Scott tube on ice) Ordered. EDMS 13:24 Admission / Observation Status ordered. EDMS 13:24 CONSISTENT CARBOHYDRATES ordered. EDMS 13:24 2 GRAM SODIUM DIET ordered. EDMS 14:19 CT Chest without contrast Ordered. EDMS 14:20 RESPIRATORY PANEL Ordered. EDMS 14:20 SPUTUM CULTURE AND GRAM STAIN Ordered. EDMS 14:26 CARDIAC INJURY PROFILE Ordered. EDMS 14:26 CARDIAC INJURY PROFILE Ordered. EDMS 14:26 TROPONIN Ordered. EDMS 14:26 TROPONIN Ordered. EDMS 15:21 T-Sheet-- Draft Copy was scanned into [employer] and attached to record. gb Administered Medications: 12:23 Drug: azithromycin 500 mg [azithromycin 500 mg intravenous solution] Route: IVPB; srm Infused Over: 1 hrs; Site: right forearm; Signatures: Dispatcher [employer] EDMS Lanie Farrell, Press Tender Unit deg Tomasa Abreu RN RN kpCodi Rausch, Reg Reg gb Andreas Castle, Reg Reg lg Ruben Morgan RN RN ml6 Mariela Pham MD MD Haylee Lofton RN srm The chart was reviewed and I authenticate all verbal orders and agree with the evaluation and treatment provided.Attachments: 12:05 [facility] [place] Agreement lg 15:21 T-Sheet-- Draft Copy gb Chart Complete MTDD
--- NOTE | 2016-06-03 15:32 | EDDOCDS ---
Nurse's Notes [facility] Name: Yadira Parra Age: 61 yrs Sex: Female : 1955 Arrival Date: 06/01/2016 Time: 10:11 Bed 8 Private MD: Kailey Bowen P Diagnosis: Acute pharyngitis;Fever, unspecified Presentation: 06/01 10:16 Presenting complaint: Patient states: cough congestion and fever x 1 week,is a kidney [facility] transplant pt. Dr Bowen sent pt here for admission. Adult Sepsis Screening: The patient does not have new or worsening altered mentation. Patient's respiratory rate is less than 22. Systolic blood pressure is greater than 100. Patient has a qSOFA score of 0- Negative Sepsis Screen. Suicide/Homicide risk assessment- the patient denies having any suicidal and/or homicidal ideations and does not present with any other emotional, behavioral or mental health complaints. Status: Patient is not a driver service technician or dependent. Transition of care: patient was received from Nephrology office. 10:16 Acuity: STEVEN Level 3 [facility] 10:16 Method Of Arrival: Walkin/Carried/Asstd [facility] Triage Assessment: 10:30 General: Appears in no apparent distress, Behavior is appropriate for age, pleasant. j Pain: Denies pain. Pt Declines HIV testing. Neurological: Level of Consciousness is awake, alert, Oriented to person, place, time. Respiratory: Airway is patent Respiratory effort is even, unlabored, Respiratory pattern is regular, symmetrical, Reports cough that is non-productive. Derm: Skin is pink, warm & dry. Historical: - Allergies: Halcion (hallucinations); Nifedipine (heart races); HYDRALAZINE (Unknown); - Home Meds: 1. tacrolimus 1 mg oral cap every 12 hours (Last dose: 06/01/2016 10:00) 2. Myfortic 180 mg oral TbEC twice a day (Last dose: 06/01/2016 10:00) 3. prednisone 5 mg Oral tab once daily (Last dose: 06/01/2016 10:00) 4. metoprolol tartrate 25 mg Oral tab 1 tab 2 times per day (Last dose: 06/01/2016 10:00) 5. magnesium oxide 400 mg Oral cap 400 mg twice a day (Last dose: 06/01/2016 10:00) 6. losartan oral 20 mg oral 1 tab once daily (Last dose: 06/01/2016 10:00) 7. Humalog 100 unit/mL Sub-Q crtg sliding scale TID 7 units at 0720 8. Lantus 100 unit/mL Sub-Q soln between 12-14 units at bedtime depending on her FSBS . 14 units kast PM - PMHx: Diabetes - IDDM: controlled; Hypertension; kidney transplant; end stage renal disease; ruptured pancreas; - PSHx: Rotator Cuff Repair- Left; Kidney Transplant- Left; Kidney Transplant- Right; Hip Arthroplasty, Left; Hip Arthroplasty, Right; Cataract Surgery- Bilateral; Cholecystectomy; Splenectomy; - Social history: Smoking status: Patient uses tobacco products, light tobacco smoker. No barriers to communication noted, The patient speaks fluent Chilean. - Family history: Not pertinent. - : The pt / caregiver states he / she is not on anticoagulants. Home medication list is obtained from the patient. - Exposure Risk Screening:: None identified. Screenin:03 Screening information is obtained from the patient. Fall risk: No risks identified. ml6 Assistance ADL's: requires no assistance with activities of daily living. Abuse/DV Screen: The patient / caregiver reports he/she is: not in a situation that causes fear, pain or injury. Nutritional screening: No deficits noted. Advance Directives: Currently, there is no health care proxy. home support is adequate. Assessment: 11:19 General: Appears in no apparent distress, comfortable, Behavior is appropriate for age, jo3 cooperative, pleasant. Neurological: Level of Consciousness is awake, alert, Oriented to person, place, time. Cardiovascular: No deficits noted. Respiratory: Airway is patent Respiratory effort is even, unlabored. Derm: Skin is pink, warm & dry. 11:32 General: Appears in no apparent distress, comfortable, Behavior is appropriate for age, ml6 cooperative. Pain: Denies pain. Neurological: No deficits noted. Level of Consciousness is awake, alert, Oriented to person, place, time. Cardiovascular: No deficits noted. Capillary refill < 3 seconds is brisk in bilateral fingers toes Heart tones S1 S2 present Edema is absent. Pulses are all present. 12:23 General: Appears in no apparent distress, comfortable, Behavior is appropriate for age, ml6 cooperative. Pain: Denies pain. Neurological: No deficits noted. Level of Consciousness is awake, alert, Oriented to person, place, time. Cardiovascular: No deficits noted. Capillary refill < 3 seconds is brisk in bilateral fingers toes Heart tones S1 S2 present Edema is absent. Pulses are all present. Respiratory: No deficits noted. Airway is patent Respiratory effort is even, unlabored, Respiratory pattern is regular, symmetrical, Breath sounds are clear bilaterally. 13:30 Reassessment: Patient appears in no apparent distress at this time. Patient denies pain ml6 at this time. Patient states feeling better. Patient states symptoms have improved. 14:17 General: Appears in no apparent distress, comfortable, Behavior is appropriate for age, ml6 cooperative. Pain: Denies pain. Neurological: No deficits noted. Level of Consciousness is awake, alert, Oriented to person, place, time. Cardiovascular: No deficits noted. Capillary refill < 3 seconds is brisk in bilateral fingers toes. Respiratory: No deficits noted. Airway is patent Respiratory effort is even, unlabored, Respiratory pattern is regular, symmetrical, Breath sounds are clear. GI: No deficits noted. Abdomen is flat, non- distended Bowel sounds present X 4 quads. Vital Signs: 10:12 BP 156 / 97; Pulse 67; Resp 16; Temp 98.7(O); Pulse Ox 98% on R/A; Weight 53.52 kg (R); elp Height 5 ft. 5 in. (165.10 cm) (R); 12:23 BP 144 / 81; Pulse 62; Resp 18; Temp 98.9(O); Pulse Ox 98% on R/A; Pain 0/10; srm 14:19 BP 138 / 74; Pulse 62; Resp 16; Temp 98.3(O); Pulse Ox 98% on R/A; Pain 0/10; ml6 10:12 Body Mass Index 19.64 (53.52 kg, 165.10 cm) el Vitals: 10:12 Log In Time: June 01, 2016 at 10:09. elp 12:03 Strep Screen is obtained and tested: Positive. ml6 ED Course: 10:11 Patient visited by Cami Short PCA. elp 10:11 Patient moved to Waiting elp 10:12 Kailey Bowen is Private Physician. elp 10:14 Patient visited by Patchen, Cami, OPERATIONS AND MAINTENANCE SUPERVISOR. elp 10:14 Patient moved to Pre RCE elp 10:18 Triage Initiated kpj 10:32 Patient moved to 8 [facility] 11:03 Mariela Pham MD is Attending Physician. fg 11:03 Patient visited by Mariela Pham MD. fg 11:16 Patient visited by Ruben Morgan, RN. ml6 11:17 BLOOD CULTURES Sent. ml6 11:18 Inserted saline lock: 20 gauge in right forearm. Labs drawn. (by ED staff). Sent per jo3 order to lab. Labs/Blood culture drawn. 11:19 Patient visited by Mar Roach,ALONDRA. jo3 12:03 Patient visited by Ruben Morgan, RN. ml6 12:03 The patient / caregiver is instructed regarding the plan of care and ED course. ml6 12:05 [facility] Payment Agreement was scanned into [employer] and attached to record. lg 12:24 Patient visited by Haylee Lofton RN. srm 12:28 Van Kirk is Hospitalizing Provider. fg 12:31 Chest, 2 View (pa\E\lat) Returned. EDMS 12:59 Lactic Acid (Scott tube on ice) Sent. ct3 14:09 No procedures done that require assistance. ml6 15:21 T-Sheet-- Draft Copy was scanned into [employer] and attached to record. gb Administered Medications: 12:23 Drug: azithromycin 500 mg [azithromycin 500 mg intravenous solution] Route: IVPB; srm Infused Over: 1 hrs; Site: right forearm; Order Results: Lab Order: CBC with Diff; SPEC'M 06/01/16 10:59 Test: WHITE BLOOD COUNT; Value: 10.1; Range: 4.0-10.0; Abnormal: Above high normal; Units: K/mm3; Status: F Test: RED BLOOD COUNT; Value: 4.71; Range: 4.00-5.40; Units: M/mm3; Status: F Test: HEMOGLOBIN; Value: 14.5; Range: 12.0-16.0; Units: g/dl; Status: F Test: HEMATOCRIT; Value: 45.4; Range: 36.0-47.0; Units: %; Status: F Test: MEAN CORPUSCULAR VOLUME; Value: 96.4; Range: 80.0-96.0; Abnormal: Above high normal; Units: fl; Status: F Test: MEAN CORPUSCULAR HEMOGLOBIN; Value: 30.8; Range: 27.0-33.0; Units: pg; Status: F Test: MEAN CORPUSCULAR HGB CONC; Value: 32.0; Range: 32.0-36.5; Units: g/dl; Status: F Test: RED CELL DISTRIBUTION WIDTH; Value: 12.9; Range: 11.5-14.5; Units: %; Status: F Test: PLATELET COUNT, AUTOMATED; Value: 242; Range: 150-450; Units: k/mm3; Status: F Test: NEUTROPHILS %; Value: 56.8; Range: 36.0-66.0; Units: %; Status: F Test: LYMPH %; Value: 29.4; Range: 24.0-44.0; Units: %; Status: F Test: MONO %; Value: 7.9; Range: 0.0-5.0; Abnormal: Above high normal; Units: %; Status: F Test: EOS %; Value: 1.2; Range: 0.0-3.0; Units: %; Status: F Test: BASO %; Value: 0.3; Range: 0.0-1.0; Units: %; Status: F Test: LARGE UNSTAINED CELL %; Value: 4.4; Range: 0.0-4.0; Abnormal: Above high normal; Units: %; Status: F Test: NEUTROPHILS #; Value: 5.7; Range: 1.8-7.7; Units: K/mm3; Status: F Test: LYMPH #; Value: 3.0; Range: 1.5-4.5; Units: K/mm3; Status: F Test: MONO #; Value: 0.8; Range: 0.0-0.8; Units: K/mm3; Status: F Test: EOS #; Value: 0.1; Range: 0.0-0.50; Units: K/mm3; Status: F Test: BASO #; Value: 0.0; Range: 0.0-0.2; Units: K/mm3; Status: F Test: LARGE UNSTAINED CELL #; Value: 0.4; Range: 0.0-0.4; Units: K/mm3; Status: F Lab Order: Basic Metabolic Profile; SPEC'M 06/01/16 10:59 Test: GLUCOSE, FASTING; Value: 226; Range: 70-105; Abnormal: Above high normal; Units: MG/DL; Status: F Test: BLOOD UREA NITROGEN; Value: 23; Range: 7-18; Abnormal: Above high normal; Units: MG/DL; Status: F Test: CREATININE FOR GFR; Value: 1.17; Range: 0.55-1.02; Abnormal: Above high normal; Units: MG/DL; Status: F Test: GLOMERULAR FILTRATION RATE; Value: 50.4; Range: >51; Abnormal: Below low normal; Status: F Test: SODIUM LEVEL; Value: 140; Range: 136-145; Units: MEQ/L; Status: F Test: POTASSIUM SERUM; Value: 4.7; Range: 3.5-5.1; Units: MEQ/L; Status: F Test: CHLORIDE LEVEL; Value: 107; Range: 98-107; Units: MEQ/L; Status: F Test: CARBON DIOXIDE LEVEL; Value: 23; Range: 21-32; Units: MEQ/L; Status: F Test: ANION GAP; Value: 10; Range: 8-16; Units: MEQ/L; Status: F Test: CALCIUM LEVEL; Value: 9.0; Range: 8.5-10.1; Units: MG/DL; Status: F Test Note: ; Units are mL/min/1.73 m2 Chronic Kidney Disease Staging per NKF: Stage I & II GFR >=60 Normal to Mildly Decreased Stage III GFR 30-59 Moderately Decreased Stage IV GFR 15-29 Severely Decreased Stage V GFR <15 Very Little GFR Left ESRD GFR <15 on SALES ADMINISTRATOR Lab Order: -Influenza A&B Rapid Antigen - Nose; SPEC'M 06/01/16 10:59 Test: INFLUENZA A RAPID SCR by ICA; Value: INFLUENZA A RESULTS NEGATIVE; Status: F Test: INFLUENZA A RAPID SCR by ICA; Value: Comments:; Status: F Test: INFLUENZA B RAPID SCR by ICA; Value: INFLUENZA B RESULTS NEGATIVE; Status: F Test Note: ; The Influenza test is a direct rapid immunoassay for the qualitative detection of Influenza viral antigen. Cell culture (Viral Culture) testing should be considered to confirm NEGATIVE results and to assist in detecting other viruses that can provide similar clinical symptoms. Please contact the lab within 24 hours ([phone]) if confirmatory testing is desired. Lab Order: Lactic Acid (Scott tube on ice); KIRAN'M 06/01/16 12:53 Test: LACTIC ACID SEPSIS PROTOCOL; Value: 0.7; Range: 0.4-2.0; Units: MMOL/L; Status: F Radiology Order: Chest, 2 View (pa\E\lat) Test: Chest, 2 View (pa\E\lat) REASON FOR EXAMINATION: Chest Pain;Cough; Chest x-ray: Two views.; ; History: Chest pain and cough.; ; Comparison chest x-ray April 20, 2012. A chest CT is reviewed from 2012.; ; Findings: There is a large pleural-based mass projecting in the left; posterolateral chest wall superiorly unchanged from the 2012 prior study. There; is peripherally calcified on chest CT from 2012. There is also calcific pleural; plaquing along the left lateral chest wall which is unchanged from the 2012 study; as well. Left hemidiaphragm is slightly elevated as before with blunting of the; lateral pleural angle. These changes are chronic. There are surgical clips; projecting in the right breast soft tissues as before. The lungs are otherwise; clear. Pleural angles are sharp posteriorly. Heart is not enlarged. The aorta; is slightly tortuous.; ; Impression:; ; No active cardiopulmonary disease. Chronic calcific pleural plaquing and chronic; calcific pleural mass lesion seen on the left.; ; ; Signed by; Tawanda Rodriguez MD 06/01/2016 12:25 P; Outcome: 12:33 Decision to Hospitalize by Provider. 14:08 Discharge Assessment: patient administered narcotics - no. The following High Risk ml6 Discharge criteria are identified: None. No special radiology studies were completed. Admission hand-off: Report Faxed Fax receipt verified by ALONDRA Crystal. Property :Personal belongings accompany Pt. 14:09 Condition: stable. ml6 14:31 Patient left the ED. ml6 Signatures: Dispatcher [employer] EDTomasa Porter RN Haylee Sarabia RN RN srm [facility], Codi, Reg Reg gb Andreas Castle, Reg Reg lg Mar Roach RN RN jo3 Lowe, Matthew, RN RN ml6 Tricia Hardy, OPERATIONS AND MAINTENANCE SUPERVISOR OPERATIONS AND MAINTENANCE SUPERVISOR ct3 Cami Short, OPERATIONS AND MAINTENANCE SUPERVISOR OPERATIONS AND MAINTENANCE SUPERVISOR elp Mariela Pham MD MD fg Corrections: (The following items were deleted from the chart) : 12: General: Appears in no apparent distress, comfortable, Behavior is appropriate ml6 for age, cooperative, srm : 12:23 Pain: Denies pain. srm ml6 12: 12:23 Neurological: No deficits noted. Level of Consciousness is awake, alert, Oriented ml6 to person, place, time, srm : 12:23 Cardiovascular: No deficits noted. Capillary refill < 3 seconds is brisk in ml6 bilateral fingers toes Heart tones S1 S2 present Edema is absent. Pulses are all present. srm : 12:23 Respiratory: No deficits noted. Airway is patent Respiratory effort is even, ml6 unlabored, Respiratory pattern is regular, symmetrical, Breath sounds are clear bilaterally. srm Chart Complete MTDD
--- NOTE | 2016-06-03 15:32 | EDDOCDS ---
Physician Documentation [facility] Name: Yadira Parra Age: 61 yrs Sex: Female : 1955 Arrival Date: 06/01/2016 Time: 10:11 Bed 8 Private MD: Kailey Bowen P Disposition: 06/01/16 12:33 Hospitalization ordered by Van Kirk for Inpatient Admission. Preliminary diagnosis are Acute pharyngitis, Fever, unspecified. - Bed requested for 4 [place]. - Status is Inpatient Admission. ml6 - Condition is Stable. - Problem is new. - Symptoms have improved. Historical: - Allergies: Halcion (hallucinations); Nifedipine (heart races); HYDRALAZINE (Unknown); - Home Meds: 1. tacrolimus 1 mg oral cap every 12 hours (Last dose: 06/01/2016 10:00) 2. Myfortic 180 mg oral TbEC twice a day (Last dose: 06/01/2016 10:00) 3. prednisone 5 mg Oral tab once daily (Last dose: 06/01/2016 10:00) 4. metoprolol tartrate 25 mg Oral tab 1 tab 2 times per day (Last dose: 06/01/2016 10:00) 5. magnesium oxide 400 mg Oral cap 400 mg twice a day (Last dose: 06/01/2016 10:00) 6. losartan oral 20 mg oral 1 tab once daily (Last dose: 06/01/2016 10:00) 7. Humalog 100 unit/mL Sub-Q crtg sliding scale TID 7 units at 0720 8. Lantus 100 unit/mL Sub-Q soln between 12-14 units at bedtime depending on her FSBS . 14 units kast PM - PMHx: Diabetes - IDDM: controlled; Hypertension; kidney transplant; end stage renal disease; ruptured pancreas; - PSHx: Rotator Cuff Repair- Left; Kidney Transplant- Left; Kidney Transplant- Right; Hip Arthroplasty, Left; Hip Arthroplasty, Right; Cataract Surgery- Bilateral; Cholecystectomy; Splenectomy; - Social history: Smoking status: Patient uses tobacco products, light tobacco smoker. No barriers to communication noted, The patient speaks fluent Vietnamese. - Family history: Not pertinent. - : The pt / caregiver states he / she is not on anticoagulants. Home medication list is obtained from the patient. - Exposure Risk Screening:: None identified. Vital Signs: 06/01 10:12 BP 156 / 97; Pulse 67; Resp 16; Temp 98.7(O); Pulse Ox 98% on R/A; Weight 53.52 kg / elp 117.99 lbs (R); Height 5 ft. 5 in. (165.10 cm) (R); 12:23 BP 144 / 81; Pulse 62; Resp 18; Temp 98.9(O); Pulse Ox 98% on R/A; Pain 0/10; srm 14:19 BP 138 / 74; Pulse 62; Resp 16; Temp 98.3(O); Pulse Ox 98% on R/A; Pain 0/10; ml6 10:12 Body Mass Index 19.64 (53.52 kg, 165.10 cm) elp MDM: 10:33 -Blood Culture (Adults Only), peripheral from different site, or from device/port/PICC fg etc. if present ordered. 10:33 Obtain sample by nasal aspiration ordered. fg 10:33 IV Saline Lock ordered. fg 10:35 CBC with Diff Ordered. EDMS 10:35 Basic Metabolic Profile Ordered. EDMS 10:35 -Blood Culture Ordered. EDMS 10:35 -Influenza A&B Rapid Antigen - Nose Ordered. EDMS 10:35 Chest, 2 View (pa\E\lat) Ordered. EDMS 11:03 -Blood Culture (Adults Only), peripheral from different site, or from device/port/PICC deg etc. if present complete. 11:04 BLOOD CULTURES Ordered. EDMS 11:40 Strep Screen, Nursing ordered. fg 11:51 Financial registration complete. lg 12:05 [facility] Payment Agreement was scanned into [employer] and attached to record. lg 12:13 azithromycin 500 mg IVPB once over 1 hrs; dilute in 250mL of D5W or NS ordered. fg 12:27 Lactic Acid (Scott tube on ice) Ordered. EDMS 13:24 Admission / Observation Status ordered. EDMS 13:24 CONSISTENT CARBOHYDRATES ordered. EDMS 13:24 2 GRAM SODIUM DIET ordered. EDMS 14:19 CT Chest without contrast Ordered. EDMS 14:20 RESPIRATORY PANEL Ordered. EDMS 14:20 SPUTUM CULTURE AND GRAM STAIN Ordered. EDMS 14:26 CARDIAC INJURY PROFILE Ordered. EDMS 14:26 CARDIAC INJURY PROFILE Ordered. EDMS 14:26 TROPONIN Ordered. EDMS 14:26 TROPONIN Ordered. EDMS 15:21 T-Sheet-- Draft Copy was scanned into [employer] and attached to record. gb Administered Medications: 12:23 Drug: azithromycin 500 mg [azithromycin 500 mg intravenous solution] Route: IVPB; srm Infused Over: 1 hrs; Site: right forearm; Signatures: Dispatcher [employer] EDMS Lanie Farrell, Tube Sizer Operator Unit deg Tomasa Abreu RN RN kpCodi Rausch, Reg Reg gb Andreas Castle, Reg Reg lg Ruben Morgan RN RN ml6 Mariela Pham MD MD Haylee Lofton RN srm The chart was reviewed and I authenticate all verbal orders and agree with the evaluation and treatment provided.Attachments: 12:05 [facility] [place] Agreement lg 15:21 T-Sheet-- Draft Copy gb Chart Complete MTDD
--- NOTE | 2016-06-04 10:57 | DSES ---
DATE OF ADMISSION: 06/01/2016 DATE OF DISCHARGE: 06/02/2016 PRIMARY CARE PROVIDER: Dr. Bowen DISCHARGE DIAGNOSES: Acute bronchitis with positive strep throat. Acute kidney injury, resolved. Diabetes. Hypertension. Hyperlipidemia. Chronic atrial fibrillation. History of ANCA-positive vasculitis causing renal failure. Status post renal transplant times two in 1991 and 2013. Chronic pleural masses with calcified cysts in between. DISCHARGE MEDICATIONS: - Augmentin 875 mg by mouth twice a day - albuterol 2.5 mg inhalation in nebulizer solution three times a day as needed - Tylenol 650 mg every 4 hours as needed - Lantus 14 units at bedtime - Lispro before meals sliding scale - lactobacillus one tablet daily - losartan 25 mg daily - magnesium oxide 400 mg twice a day - metoprolol tartrate 25 mg by mouth twice a day - Myfortic 540 mg by mouth twice a day - prednisone 5 mg by mouth daily - PreserVision AREDS one capsule by mouth daily - simvastatin 20 mg at bedtime - tacrolimus 1 mg by mouth twice a day HOSPITAL COURSE: This is a 61-year-old female with a history of end-stage renal disease due to ANCA vasculitis, status post two renal transplants, the first one was in 1991 and the second one in 2013, diabetes, hypertension, hyperlipidemia, with 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 She had sick contacts with her granddaughter who had influenza. The patient tested positive for strep throat in the emergency department (ED). Influenza was negative. The patient was started on Augmentin, received nebulizers with improvement of her symptoms. Today, the patient's symptoms have resolved, the patient was functioning at her baseline with stable vital signs, who is going to be discharged home in stable condition. PHYSICAL EXAMINATION: Vital signs: Temperature 98.4, pulse 93, respiratory rate 18, blood pressure 140/78, pulse oximetry 95% in room air. General: Patient awake, alert, oriented times three, sitting up in bed in no acute distress. HEENT: Normocephalic, atraumatic. Moist mucous membranes. Anicteric eyes. Chest: There is mild wheezing, otherwise clear to auscultation. Cardiovascular: S1, S2 regular. No rub, murmur or gallop. Abdomen: Soft, nontender. Bowel sounds present. Extremities: No edema. LABORATORY DATA: WBC 7.4, hemoglobin 12.6, platelets 263. Sodium 144, potassium 5, chloride 115, bicarbonate 19, anion gap 10, BUN 16, creatinine 0.9, glucose 167. Cardiac enzymes are negative. Calcium 8.6. Magnesium 2.1. Tacrolimus level is pending. CT chest showed stable, calcified pleural masses on the left with low density centers. This could be calcified pleural cysts or pleural masses with cystic degeneration. Atelectasis at the lung bases or scarring at the lung bases. There is a 4 mm pleural based nodule posteriorly in the right upper lobe. Suggested followup CT in 12 months. Calcifications at the elias hepatis, cholecystectomy, unchanged from previous study. DISPOSITION: The patient is discharged home in stable condition. DISCHARGE INSTRUCTIONS: Patient to followup with primary care provider in 1 week, regular diet, activity as tolerated.
== END 2016-06-02 17:04 | disposition home or self-care (01) ==
LOC: M ED 10:11 → M MSPAV 13:18 → M ED INP 13:19 → M MSPAV 14:32
PROVIDERS: ADMIT Internal Medicine; ATTEND Internal Medicine Nephrology
DX: J20.2 Acute bronchitis due to streptococcus (principal); Z94.0 Kidney transplant status; N17.9 Acute kidney failure, unspecified; E11.9 Type 2 diabetes mellitus without complications; N18.9 Chronic kidney disease, unspecified; D63.1 Anemia in chronic kidney disease; I12.9 Hypertensive chronic kidney disease with stage 1 through stage 4 chronic kidney disease, or unspecified chronic kidney disease; E78.4 Other hyperlipidemia; I48.2 Chronic atrial fibrillation; Z79.4 Long term (current) use of insulin; Z79.899 Other long term (current) drug therapy
CPT/HCPCS: 36415; 71020; 71250; 80048; 80197; 82550; 82553; 83605; 83735; 84484; 85025; 85027; 87040; 87070; 87077; 87186; 87205; 87486; 87581; 87633; 87798; 87804; 87880; 94640; 96374; 99284; G0378; J7507

== ENCOUNTER → 2016-06-01 | Outpatient (REF) | payer MEDICARE ==
[~2016-06-01] MED LIST: /ONDA4TA PO; ACET65TA OR; ALB2.5NEB INH; ANEXSIA PO; ASPI81TA85 PO; AUGM875T27 PO; BACITAB3 PO; CALC0.5C OR; COZA50TA18 OR; CYCLOSPORIN PO; DILT180C7 OR; INSUHUMDS SC; LANTINJ4 SC; LASI40TA OR; LASI40TA PO; LOPR50TA OR; LOSA25TA8 PO; MAGN400T5 PO; MAGN500T5 PO; METO12TA PO; METR500T10 PO; MYCO1TAB PO; NEPHROVITE PO; NEPRO PO; POTA10CA2 OR; PRED10TA2 OR; PRED5EL OR; PRED5TA PO; PRED5TAB OR; PRED5TAB PO; PRESCAP6 PO; SANDIMMUNE PO; SIMV20TA2 OR; SIMV20TA2 PO; SPIR25TA2 OR; TACR1CAP3 PO; TYLE325T5 PO; VANC12CA OR; VANC250C PO; humulin 70/30 SQ
== END ==
LOC: M LAB REF 12:57
PROVIDERS: ATTEND Internal Medicine Nephrology
DX: Z94.0 Kidney transplant status (principal)

== ENCOUNTER → 2016-07-14 | Outpatient (REF) | payer MEDICARE ==
[~2016-07-14] MED LIST changes: +ALB2.5NEB INH; +AUGM875T27 PO; +BACITAB3 PO; +INSUHUMDS SC; +LANTINJ4 SC; +LOSA25TA8 PO; +MAGN400T5 PO; +METO12TA PO; +MYCO1TAB PO; +PRED5TA PO; +PRESCAP6 PO; +SIMV20TA2 PO; +TACR1CAP3 PO; +TYLE325T5 PO
== END ==
LOC: M LAB REF 12:43
PROVIDERS: ATTEND Internal Medicine Nephrology
DX: Z94.0 Kidney transplant status (principal)

== ENCOUNTER → 2016-08-11 | Day surgery (SDC) | payer MEDICARE ==
[~2016-08-11] VITALS: Ht 165.1 cm; Wt 55.8 kg
[~2016-08-11] MED LIST changes: +ACETAMINOPH W/CODEINE #3 TAB UD PO PRN; +AMPICILLIN 1 GM VIAL As Ordered ONE; +AMPICILLIN 1 GM VIAL IV ONE; +DILT240C77 PO; +EPINEPHrine 1MG/ML INJ 30ML MD-VIAL As Ordered ONE; +HYDROmorphone HCL 1 MG/ML SYRINGE (J1170) IV PRN; +LIDOCAINE 2% INJ 100 MG/5 ML SDV (FOR ANES.) As Ordered ONE; +LIDOCAINE W/EPINEPHRINE 1% 20ML VIAL As Ordered ONE; +LR 1,000 ML IV SCH; +METHYLENE BLUE 0.5% (5MG/ML) 10 ML AMP (PROVAYBLUE)(Q9968 PER 1MG) As Ordered ONE; +MIDAZOLAM INJ 2 MG/2 ML VIAL (J2250) As Ordered ONE; +MORPHINE 10 MG/ML 1ML VIAL IV PRN; +ONDANSETRON 4MG/2ML VIAL (J2405) As Ordered ONE; +ONDANSETRON 4MG/2ML VIAL (J2405) IV PRN; +PERCOCET 5MG/325MG TAB PO PRN; +PROPOFOL 200 MG/20 ML VIAL As Ordered ONE; +ROCURONIUM BROMIDE 50 MG/5 ML VIAL As Ordered ONE; +SEVOFLURANE INHAL SOLN 250 ML BTL As Ordered ONE; +dexameTHASONE 4 MG/ML 1ML VIAL (J1100) As Ordered ONE; +fentaNYL 100 MCG/2 ML INJECTION (J3010) As Ordered ONE; +fentaNYL 100 MCG/2 ML INJECTION (J3010) IV PRN
[2016-08-11 11:55] VITALS: BP 157/75
--- NOTE | 2016-08-14 07:12 | RO ---
DATE OF PROCEDURE: 08/11/2016 PREPROCEDURE DIAGNOSIS: Nasal septal deviation, chronic rhinitis, nasal valve collapse. POSTPROCEDURE DIAGNOSIS: Nasal septal deviation, chronic rhinitis, nasal valve collapse. PROCEDURE: Left turbinectomy, septoplasty and nasal valve repair. SURGEON: Dr. Natanael Danielle RADIO BOARD OPERATOR: ANESTHESIA: ESTIMATED BLOOD LOSS: DESCRIPTION OF OPERATION: Under general anesthesia with the patient intubated, the patient was draped in the usual manner. I infiltrated with the lidocaine with epinephrine, then used pledgets of adrenaline 1:100,000. I made an incision on the septum on the left side and elevated subperichondrial plane. I removed a small amount of cartilage in the inferior anterior aspect of the septum which was slightly deviated toward that left side. I closed that wound with #4-0 Vicryl, #4-0 Chromic suture. I then made an incision anterior to the inferior turbinate on the left side and I drilled two holes in the nasal bone inferior aspect. I then used #4-0 Vicryl and put sutures through the holes and then through the base of the lower lateral cartilage on that left side and tied that to suspend the lower lateral aspect of the lateral namrata of the lower lateral cartilage on that side and then used the microdebrider to trim the inferior turbinate on that side. Patient tolerated the procedure well. Minimal blood loss. Patient was extubated and transferred to the recovery room in excellent condition.
== END | disposition home or self-care (01) ==
LOC: M SDC 07:33
PROVIDERS: ATTEND Otolaryngology
DX: I12.0 Hypertensive chronic kidney disease with stage 5 chronic kidney disease or end stage renal disease (principal); F17.210 Nicotine dependence, cigarettes, uncomplicated; E11.9 Type 2 diabetes mellitus without complications; N18.6 End stage renal disease; E78.00 Pure hypercholesterolemia, unspecified; Z88.8 Allergy status to other drugs, medicaments and biological substances; Z79.899 Other long term (current) drug therapy; Z94.0 Kidney transplant status; Z79.4 Long term (current) use of insulin; Z87.448 Personal history of other diseases of urinary system; Z78.0 Asymptomatic menopausal state; Z96.643 Presence of artificial hip joint, bilateral; Z96.1 Presence of intraocular lens
CPT/HCPCS: 30130; 30520; J1100; J2250; J2405; J3010; Q9968

== ENCOUNTER → 2016-10-18 | Outpatient (REF) | payer MEDICARE ==
[~2016-10-18] MED LIST changes: -ACETAMINOPH W/CODEINE #3 TAB UD PO PRN; -AMPICILLIN 1 GM VIAL As Ordered ONE; -AMPICILLIN 1 GM VIAL IV ONE; -EPINEPHrine 1MG/ML INJ 30ML MD-VIAL As Ordered ONE; -HYDROmorphone HCL 1 MG/ML SYRINGE (J1170) IV PRN; -LIDOCAINE 2% INJ 100 MG/5 ML SDV (FOR ANES.) As Ordered ONE; -LIDOCAINE W/EPINEPHRINE 1% 20ML VIAL As Ordered ONE; -LR 1,000 ML IV SCH; -METHYLENE BLUE 0.5% (5MG/ML) 10 ML AMP (PROVAYBLUE)(Q9968 PER 1MG) As Ordered ONE; -MIDAZOLAM INJ 2 MG/2 ML VIAL (J2250) As Ordered ONE; -MORPHINE 10 MG/ML 1ML VIAL IV PRN; -ONDANSETRON 4MG/2ML VIAL (J2405) As Ordered ONE; -ONDANSETRON 4MG/2ML VIAL (J2405) IV PRN; -PERCOCET 5MG/325MG TAB PO PRN; -PROPOFOL 200 MG/20 ML VIAL As Ordered ONE; -ROCURONIUM BROMIDE 50 MG/5 ML VIAL As Ordered ONE; -SEVOFLURANE INHAL SOLN 250 ML BTL As Ordered ONE; -dexameTHASONE 4 MG/ML 1ML VIAL (J1100) As Ordered ONE; -fentaNYL 100 MCG/2 ML INJECTION (J3010) As Ordered ONE; -fentaNYL 100 MCG/2 ML INJECTION (J3010) IV PRN
== END ==
LOC: M LAB REF 12:49
PROVIDERS: ATTEND Internal Medicine Nephrology
DX: Z94.0 Kidney transplant status (principal)

== ENCOUNTER → 2017-01-09 | Outpatient (CLI) | payer MEDICARE ==
[~2017-01-09] MED LIST changes: -AUGM875T27 PO; +AUGM875T28 PO; +BACITAB PO; -BACITAB3 PO; -METO12TA PO; +METO1TAB87 PO
--- NOTE | 2017-01-10 00:33 | REP ---
PA and lateral chest: Comparisons are the PA and lateral chest studies of 06/01/2016 and 09/16/[address] of 06/01/2016. There are large pleural-based masses on the left, unchanged. There is mild effacement of the left costophrenic angle, unchanged. There are surgical clips in the right breast, unchanged. Lung salas otherwise clear. Cardiac size is normal. The malgorzata, mediastinum, and bony thorax are unremarkable. Impression: There are chronic stable findings as described, unchanged from 06/01/2016 and also unchanged for a PA and lateral chest of 09/16/2011. Signed by Chandu Doyle MD 01/09/2017 04:31 P
== END ==
LOC: M SMT 15:55
PROVIDERS: ATTEND Internal Medicine Nephrology
DX: J18.9 Pneumonia, unspecified organism (principal); Z94.0 Kidney transplant status

== ENCOUNTER → 2017-02-13 | Outpatient (REF) | payer MEDICARE | LOC: M LAB REF 13:42 | PROVIDERS: ATTEND Internal Medicine Nephrology | DX: E78.00 Pure hypercholesterolemia, unspecified (principal); Z48.22 Encounter for aftercare following kidney transplant; Z94.0 Kidney transplant status ==

== ENCOUNTER → 2017-03-20 | Outpatient (REF) | payer MEDICARE | LOC: M LAB REF 17:12 | PROVIDERS: ATTEND Internal Medicine Nephrology | DX: N39.0 Urinary tract infection, site not specified (principal); Z48.22 Encounter for aftercare following kidney transplant ==

== ENCOUNTER → 2017-04-24 | Outpatient (REF) | payer MEDICARE ==
[2017-04-27 00:07] LABS: FK 506 (TACROLIMUS) LABCORP 11.7 ng/mL (2.0-20.0)
== END ==
LOC: M LAB REF 12:49
DX: Z94.0 Kidney transplant status (principal)
CPT/HCPCS: 80197

== ENCOUNTER 2017-05-15 11:25 | Day surgery (SDC) | payer MEDICARE ==
[2017-05-15] MEDS ORDERED: MIDAZOLAM INJ 2 MG/2 ML VIAL (J2250) As Ordered (11:59)
[2017-05-15] MEDS ORDERED: fentaNYL 250 MCG/5 ML INJECTION (J3010) As Ordered (11:59)
[2017-05-15] MEDS ORDERED: ROCURONIUM BROMIDE 50 MG/5 ML VIAL As Ordered (11:59)
[2017-05-15] MEDS ORDERED: PROPOFOL 200 MG/20 ML VIAL As Ordered (11:59)
[2017-05-15] MEDS ORDERED: LIDOCAINE 2% INJ 100 MG/5 ML SDV (FOR ANES.) As Ordered (11:59)
[2017-05-15] MEDS: EPINEPHrine 1MG/ML INJ 30ML MD-VIAL As Ordered (12:17)
[2017-05-15] MEDS: METHYLENE BLUE 0.5% (5MG/ML) 10 ML AMP (PROVAYBLUE)(Q9968 PER 1MG) As Ordered (12:17)
[2017-05-15] MEDS: LR 1,000 ML IV (12:34)
[2017-05-15] MEDS: LIDOCAINE W/EPINEPHRINE 1% 20ML VIAL As Ordered (12:35)
[2017-05-15] MEDS ORDERED: ePHEDrine INJ 50 MG/ML VIAL As Ordered (13:19)
[2017-05-15] MEDS ORDERED: dexameTHASONE 4 MG/ML 1ML VIAL (J1100) As Ordered (13:20)
[2017-05-15] MEDS ORDERED: GLYCOPYRROLATE INJ 0.2 MG/ML 2 ML VIAL As Ordered (13:20)
[2017-05-15] MEDS ORDERED: PHENYLEPHRINE INJ 10MG/ML VIAL (J2370) As Ordered (13:20)
[2017-05-15 13:23] LABS: BEDSIDE GLUCOSE 78 MG/DL (80-115)
[2017-05-15] MEDS ORDERED: BACITRACIN OINT 30GM As Ordered (14:29)
[2017-05-15 15:13] LABS: BEDSIDE GLUCOSE 104 MG/DL (80-115)
[2017-05-15] MEDS ORDERED: fentaNYL 100 MCG/2 ML INJECTION (J3010) IV (15:15)
[2017-05-15] MEDS ORDERED: LR 1,000 ML IV ×2 (15:15)
[2017-05-15] MEDS ORDERED: PERCOCET 5MG/325MG TAB PO (15:15)
[2017-05-15] MEDS ORDERED: ONDANSETRON 4MG/2ML VIAL (J2405) IV (15:15)
[2017-05-15] MEDS ORDERED: ACETAMINOPH W/CODEINE #3 TAB UD PO (15:15)
[2017-05-15] MEDS ORDERED: HYDROmorphone HCL 1 MG/ML SYRINGE (J1170) IV (15:15)
== END 2017-05-15 16:05 | disposition home or self-care (01) ==
LOC: M SDC 11:25
DX: M95.0 Acquired deformity of nose (principal); I10 Essential (primary) hypertension; E10.9 Type 1 diabetes mellitus without complications; E78.00 Pure hypercholesterolemia, unspecified; K21.9 Gastro-esophageal reflux disease without esophagitis; M12.9 Arthropathy, unspecified; J31.0 Chronic rhinitis; Z88.8 Allergy status to other drugs, medicaments and biological substances; Z79.899 Other long term (current) drug therapy; Z79.4 Long term (current) use of insulin; Z94.0 Kidney transplant status; Z87.19 Personal history of other diseases of the digestive system; Z78.0 Asymptomatic menopausal state; Z87.440 Personal history of urinary (tract) infections; Z72.0 Tobacco use; Z96.1 Presence of intraocular lens; Z96.643 Presence of artificial hip joint, bilateral
CPT/HCPCS: 30410

== ENCOUNTER → 2017-06-08 | Outpatient (REF) | payer MEDICARE ==
[2017-06-11 00:06] LABS: FK 506 (TACROLIMUS) LABCORP 5.1 ng/mL (2.0-20.0)
== END ==
LOC: M LAB REF 13:43
DX: Z94.0 Kidney transplant status (principal)
CPT/HCPCS: 80197

== ENCOUNTER → 2017-12-03 | Outpatient (REF) | payer MEDICARE ==
[2017-12-07 00:07] LABS: FK 506 (TACROLIMUS) LABCORP 7.7 ng/mL (2.0-20.0)
== END ==
LOC: M LAB REF 13:13
DX: Z94.0 Kidney transplant status (principal)
CPT/HCPCS: 80197

== ENCOUNTER 2017-12-29 14:48 | Inpatient (IN) | payer MEDICARE ==
[2017-12-29] MEDS ORDERED: VANCOMYCIN ORAL SOL 250MG/5ML ORAL SYRINGE PO (15:26)
[2017-12-29 15:50] LABS: BASO # 0.1 10^3/uL (0.0-0.2); BASO % 0.3 % (0.0-1.0); EOS # 0.2 10^3/uL (0.0-0.50); EOS % 1.3 % (0.0-3.0); HEMATOCRIT 36.6 % (36.0-47.0); HEMOGLOBIN 11.8 g/dl (12.0-15.5); IMMATURE GRANULOCYTE % 0.7 % (0-3.0); LYMPH # 3.2 10^3/uL (1.5-4.5); LYMPH % 16.9 % (24.0-44.0); MEAN CORPUSCULAR HEMOGLOBIN 30.7 pg (27.0-33.0); MEAN CORPUSCULAR HGB CONC 32.2 g/dl (32.0-36.5); MEAN CORPUSCULAR VOLUME 95.3 fl (80.0-96.0); MONO # 0.6 10^3/uL (0.0-0.8); MONO % 3.4 % (0.0-5.0); NEUTROPHILS # 14.5 10^3/uL (1.8-7.7); NEUTROPHILS % 77.4 % (36.0-66.0); PLATELET COUNT, AUTOMATED 253 10^3/uL (150-450); RED BLOOD COUNT 3.84 10^6/uL (4.00-5.40); RED CELL DISTRIBUTION WIDTH 13.8 % (11.5-14.5); WHITE BLOOD COUNT 18.7 10^3/uL (4.0-10.0)
[2017-12-29] MEDS: NS 1,000 ML IV ×3 (15:50→22:56)
[2017-12-29 16:13] LABS: ALBUMIN 3.3 GM/DL (3.2-5.2); ALKALINE PHOSPHATASE 87 U/L (45-117); ALT/SGPT 20 U/L (12-78); AMYLASE 18 U/L (25-115); ANION GAP 12 MEQ/L (8-16); AST/SGOT 14 U/L (7-37); BILIRUBIN,DIRECT < 0.1 MG/DL (0.0-0.2); BILIRUBIN,TOTAL 0.4 MG/DL (0.2-1.0); BLOOD UREA NITROGEN 27 MG/DL (7-18); CALCIUM LEVEL 9.3 MG/DL (8.8-10.2); CARBON DIOXIDE LEVEL 14 MEQ/L (21-32); CHLORIDE LEVEL 113 MEQ/L (98-107); CPK CREATINE PHOSPHOKINASE 43 U/L (26-192); CREATININE FOR GFR 1.37 MG/DL (0.55-1.30); GLOMERULAR FILTRATION RATE 41.9 (>45); GLUCOSE, FASTING 125 MG/DL (70-100); LIPASE 75 U/L (73-393); SODIUM LEVEL 139 MEQ/L (136-145); TOTAL PROTEIN 7.4 GM/DL (6.4-8.2); TROPONIN I < 0.02 NG/ML (< 0.10)
[2017-12-29 16:14] LABS: CK-MB VALUE MASS < 1.0 NG/ML (<3.6); MB/CK RELATIVE INDEX 2.32 (< OR =4)
[2017-12-29 16:16] LABS: LACTIC ACID SEPSIS PROTOCOL 2.8 MMOL/L (0.4-2.0)
[2017-12-29 16:21] LABS: INR 0.98; PROTHROMBIN TIME 13.1 SECONDS (12.1-14.4)
[2017-12-29 16:22] LABS: PARTIAL THROMBOPLASTIN TIME 27.8 SECONDS (25.4-37.6)
[2017-12-29] MEDS: ONDANSETRON 4MG/2ML VIAL (J2405) IV (16:22)
[2017-12-29] MEDS: metroNIDAZOLE 500 MG in APPROPRIATE DILUENT 1 EA IV (16:22)
[2017-12-29] MEDS: FIDAXOMICIN 200 MG TAB (DIFICID) PO (16:50)
[2017-12-29] MEDS: ACETAMINOPHEN TAB 650MG DOSE (2X325MG) PO ×2 (16:50→22:00)
[2017-12-29 16:54] LABS: ABG BASE EXCESS -11.1 (-2.0-2.0); ABG HCO3 11.9 MEQ/L (22.0-26.0); ABG O2 SATURATION 98.5 % (95.0-99.0); ABG PARTIAL PRESSURE CO2 20.4 mmHg (35.0-45.0); ABG PARTIAL PRESSURE O2 128.1 mmHg (75.0-100.0); ABG STANDARD HCO3 15.7 MEQ/L (22.0-26.0); ABG TOTAL CO2 12.6 MEQ/L (23.0-31.0); ABG pH (ARTERIAL) 7.385 UNITS (7.350-7.450)
[2017-12-29] MEDS ORDERED: DEXTROSE 50% 50 ML SYRINGE IV (17:30)
[2017-12-29] MEDS ORDERED: GLUCAGON FOR INJ 1 MG VIAL (J1610) SC (17:30)
[2017-12-29] MEDS ORDERED: GLUCOSE 4 GM CHEW TABLET PO (17:30)
[2017-12-29] MEDS: HumaLOG INSULIN (NovoLOG) PER UNIT SC (18:45)
[2017-12-29] MEDS ORDERED: LEVEMIR (INSULIN DETEMIR) 1 UNITS/0.01ML SC (21:00)
[2017-12-29] MEDS ORDERED: HEPARIN SOD (PORCINE) 5000 UNITS/ML VIAL SC (22:00)
[2017-12-29 22:44] LABS: ALBUMIN 2.8 GM/DL (3.2-5.2); ANION GAP 12 MEQ/L (8-16); BLOOD UREA NITROGEN 25 MG/DL (7-18); CARBON DIOXIDE LEVEL 12 MEQ/L (21-32); CHLORIDE LEVEL 116 MEQ/L (98-107); CREATININE FOR GFR 1.29 MG/DL (0.55-1.30); GLOMERULAR FILTRATION RATE 44.9 (>45); GLUCOSE, FASTING 101 MG/DL (70-100); PHOSPHORUS LEVEL 2.5 MG/DL (2.5-4.9); POTASSIUM SERUM 3.7 MEQ/L (3.5-5.1); SODIUM LEVEL 140 MEQ/L (136-145)
[2017-12-29 22:48] LABS: LACTIC ACID SEPSIS PROTOCOL 0.8 MMOL/L (0.4-2.0)
[2017-12-30] MEDS: LACTOBACILLUS ACIDOPHILUS CAP (BACID) PO ×4 (00:03→21:41)
[2017-12-30] MEDS: MAGNESIUM OXIDE 400 MG TAB (MAG-OX) PO ×3 (00:09→21:42)
[2017-12-30] MEDS: TACROLIMUS 1 MG CAP (J7507) PO ×3 (00:10→21:43)
[2017-12-30] MEDS: SIMVASTATIN 20 MG TAB PO ×2 (00:10→21:41)
[2017-12-30] MEDS: HEPARIN SOD (PORCINE) 5000 UNITS/ML VIAL SC ×3 (00:13→21:43)
[2017-12-30] MEDS: HumaLOG INSULIN (NovoLOG) PER UNIT SC ×7 (00:15→20:25)
[2017-12-30] MEDS: LEVEMIR (INSULIN DETEMIR) 1 UNITS/0.01ML SC ×2 (00:28→21:44)
[2017-12-30] MEDS: metroNIDAZOLE 500 MG in APPROPRIATE DILUENT 1 EA IV ×4 (00:47→23:09)
[2017-12-30] MEDS: ACETAMINOPHEN TAB 650MG DOSE (2X325MG) PO ×3 (04:28→22:18)
[2017-12-30 05:32] LABS: HEMATOCRIT 32.1 % (36.0-47.0); HEMOGLOBIN 10.2 g/dl (12.0-15.5); MEAN CORPUSCULAR HEMOGLOBIN 30.6 pg (27.0-33.0); MEAN CORPUSCULAR HGB CONC 31.8 g/dl (32.0-36.5); MEAN CORPUSCULAR VOLUME 96.4 fl (80.0-96.0); PLATELET COUNT, AUTOMATED 218 10^3/uL (150-450); RED BLOOD COUNT 3.33 10^6/uL (4.00-5.40); WHITE BLOOD COUNT 28.2 10^3/uL (4.0-10.0)
[2017-12-30 05:49] LABS: ALBUMIN 2.7 GM/DL (3.2-5.2); ALBUMIN/GLOBULIN RATIO 0.82 (1.00-1.93); ALKALINE PHOSPHATASE 72 U/L (45-117); ALT/SGPT 28 U/L (12-78); ANION GAP 12 MEQ/L (8-16); AST/SGOT 26 U/L (7-37); BILIRUBIN,TOTAL 0.5 MG/DL (0.2-1.0); BLOOD UREA NITROGEN 25 MG/DL (7-18); CALCIUM LEVEL 8.4 MG/DL (8.8-10.2); CARBON DIOXIDE LEVEL 11 MEQ/L (21-32); CHLORIDE LEVEL 116 MEQ/L (98-107); GLOMERULAR FILTRATION RATE 44.5 (>45); GLUCOSE, FASTING 91 MG/DL (70-100); MAGNESIUM LEVEL 1.7 MG/DL (1.8-2.4); POTASSIUM SERUM 4.4 MEQ/L (3.5-5.1); SODIUM LEVEL 139 MEQ/L (136-145)
[2017-12-30] MEDS: SODIUM BICARBONATE 75 MEQ in NS 0.45% 1,000 ML IV ×2 (06:35→18:43)
[2017-12-30] MEDS: FIDAXOMICIN 200 MG TAB (DIFICID) PO ×2 (08:21→21:43)
[2017-12-30] MEDS: LOSARTAN 50 MG TAB PO (08:48)
[2017-12-30] MEDS: METOPROLOL TART 25 MG TABLET PO (08:48)
[2017-12-30] MEDS ORDERED: ENTER DRUG NAME HERE (PATIENT'S OWN MED) PO ×2 (09:00)
[2017-12-30] MEDS ORDERED: predniSONE 5 MG TAB PO (09:00)
[2017-12-30] MEDS ORDERED: SIMVASTATIN 20 MG TAB PO ×3 (09:00→21:00)
[2017-12-30] MEDS: MAG SULF 1GM/100ML (MAG RUN) 1 GM in APPROPRIATE DILUENT 1 EA IV (09:53)
[2017-12-30 11:43] LABS: BEDSIDE GLUCOSE 136 MG/DL (80-115)
[2017-12-30] MEDS: MYFORTIC 180 MG PO (12:23)
[2017-12-30] MEDS: SODIUM BICARBONATE 325 MG TAB PO ×3 (12:24→21:41)
[2017-12-30] MEDS ORDERED: VANCOMYCIN HCL 1,000 MG in IV FLUID PLACE HOLDER 1 EA IV (13:15)
[2017-12-30] MEDS: VANCOMYCIN HCL 1,000 MG, VIAL MATE ADAPTER 1 EACH in D5W 250 ML IV (14:08)
[2017-12-30] MEDS ORDERED: NS 1,000 ML IV (14:30)
[2017-12-30 16:38] LABS: ANION GAP 10 MEQ/L (8-16); BLOOD UREA NITROGEN 26 MG/DL (7-18); CARBON DIOXIDE LEVEL 14 MEQ/L (21-32); CHLORIDE LEVEL 115 MEQ/L (98-107); CREATININE FOR GFR 1.28 MG/DL (0.55-1.30); GLOMERULAR FILTRATION RATE 45.3 (>45); GLUCOSE, FASTING 189 MG/DL (70-100); POTASSIUM SERUM 3.7 MEQ/L (3.5-5.1); SODIUM LEVEL 139 MEQ/L (136-145)
[2017-12-30 16:43] LABS: BEDSIDE GLUCOSE 162 MG/DL (80-115)
[2017-12-30] MEDS: ONDANSETRON 4 MG TAB (S0181) PO (18:02)
[2017-12-30 20:24] LABS: BEDSIDE GLUCOSE 99 MG/DL (80-115)
[2017-12-30] MEDS: diphenhydrAMINE 25 MG CAP PO (21:42)
[2017-12-30] MEDS: predniSONE 5 MG TAB PO (21:42)
[2017-12-31 05:22] LABS: HEMATOCRIT 29.6 % (36.0-47.0); HEMOGLOBIN 9.6 g/dl (12.0-15.5); MEAN CORPUSCULAR HEMOGLOBIN 30.1 pg (27.0-33.0); MEAN CORPUSCULAR HGB CONC 32.4 g/dl (32.0-36.5); MEAN CORPUSCULAR VOLUME 92.8 fl (80.0-96.0); PLATELET COUNT, AUTOMATED 223 10^3/uL (150-450); RED BLOOD COUNT 3.19 10^6/uL (4.00-5.40); RED CELL DISTRIBUTION WIDTH 14.2 % (11.5-14.5); WHITE BLOOD COUNT 20.8 10^3/uL (4.0-10.0)
[2017-12-31] MEDS: SODIUM BICARBONATE 75 MEQ in NS 0.45% 1,000 ML IV ×3 (05:24→22:04)
[2017-12-31] MEDS: VANCOMYCIN HCL 750 MG, VIAL MATE ADAPTER 1 EACH in D5W 250 ML IV ×2 (05:37→18:00)
[2017-12-31 05:43] LABS: ALBUMIN 2.6 GM/DL (3.2-5.2); ALBUMIN/GLOBULIN RATIO 0.81 (1.00-1.93); ALKALINE PHOSPHATASE 71 U/L (45-117); ALT/SGPT 23 U/L (12-78); ANION GAP 12 MEQ/L (8-16); AST/SGOT 15 U/L (7-37); BILIRUBIN,TOTAL 0.3 MG/DL (0.2-1.0); BLOOD UREA NITROGEN 21 MG/DL (7-18); CALCIUM LEVEL 8.2 MG/DL (8.8-10.2); CARBON DIOXIDE LEVEL 14 MEQ/L (21-32); CHLORIDE LEVEL 116 MEQ/L (98-107); CREATININE FOR GFR 1.07 MG/DL (0.55-1.30); GLOMERULAR FILTRATION RATE 55.7 (>45); GLUCOSE, FASTING 149 MG/DL (70-100); POTASSIUM SERUM 4.1 MEQ/L (3.5-5.1); SODIUM LEVEL 142 MEQ/L (136-145); TOTAL PROTEIN 5.8 GM/DL (6.4-8.2)
[2017-12-31] MEDS: metroNIDAZOLE 500 MG in APPROPRIATE DILUENT 1 EA IV (08:00)
[2017-12-31] MEDS: HEPARIN SOD (PORCINE) 5000 UNITS/ML VIAL SC ×2 (09:00→20:50)
[2017-12-31] MEDS: TACROLIMUS 1 MG CAP (J7507) PO ×2 (09:27→20:47)
[2017-12-31] MEDS: SODIUM BICARBONATE 325 MG TAB PO ×4 (09:28→20:46)
[2017-12-31] MEDS: LACTOBACILLUS ACIDOPHILUS CAP (BACID) PO ×3 (09:28→20:46)
[2017-12-31] MEDS: METOPROLOL TART 25 MG TABLET PO (09:28)
[2017-12-31] MEDS: MAGNESIUM OXIDE 400 MG TAB (MAG-OX) PO ×2 (09:28→20:47)
[2017-12-31] MEDS: HumaLOG INSULIN (NovoLOG) PER UNIT SC ×4 (09:29→20:29)
[2017-12-31] MEDS: FIDAXOMICIN 200 MG TAB (DIFICID) PO ×2 (09:29→20:46)
[2017-12-31 11:21] LABS: BEDSIDE GLUCOSE 181 MG/DL (80-115)
[2017-12-31 15:25] LABS: BLOOD UREA NITROGEN 20 MG/DL (7-18); CARBON DIOXIDE LEVEL 18 MEQ/L (21-32); CHLORIDE LEVEL 109 MEQ/L (98-107); CREATININE FOR GFR 1.14 MG/DL (0.55-1.30); GLOMERULAR FILTRATION RATE 51.8 (>45); GLUCOSE, FASTING 202 MG/DL (70-100); POTASSIUM SERUM 3.6 MEQ/L (3.5-5.1); SODIUM LEVEL 137 MEQ/L (136-145)
[2017-12-31 15:26] LABS: ANION GAP 10 MEQ/L (8-16); CALCIUM LEVEL 8.4 MG/DL (8.8-10.2)
[2017-12-31 16:40] LABS: BEDSIDE GLUCOSE 142 MG/DL (80-115)
[2017-12-31 20:26] LABS: BEDSIDE GLUCOSE 183 MG/DL (80-115)
[2017-12-31] MEDS: SIMVASTATIN 20 MG TAB PO (20:47)
[2017-12-31] MEDS: LEVEMIR (INSULIN DETEMIR) 1 UNITS/0.01ML SC (20:47)
[2017-12-31] MEDS: predniSONE 5 MG TAB PO (20:47)
[2017-12-31] MEDS: diphenhydrAMINE 25 MG CAP PO (22:04)
[2018-01-01] MEDS: VANCOMYCIN HCL 750 MG, VIAL MATE ADAPTER 1 EACH in D5W 250 ML IV (06:49)
[2018-01-01 06:56] LABS: BEDSIDE GLUCOSE 68 MG/DL (80-115)
[2018-01-01] MEDS: HumaLOG INSULIN (NovoLOG) PER UNIT SC ×2 (07:30→12:15)
[2018-01-01 08:11] LABS: HEMATOCRIT 29.4 % (36.0-47.0); HEMOGLOBIN 9.9 g/dl (12.0-15.5); MEAN CORPUSCULAR HEMOGLOBIN 30.6 pg (27.0-33.0); MEAN CORPUSCULAR HGB CONC 33.7 g/dl (32.0-36.5); MEAN CORPUSCULAR VOLUME 90.7 fl (80.0-96.0); PLATELET COUNT, AUTOMATED 236 10^3/uL (150-450); RED BLOOD COUNT 3.24 10^6/uL (4.00-5.40); RED CELL DISTRIBUTION WIDTH 13.7 % (11.5-14.5); WHITE BLOOD COUNT 13.4 10^3/uL (4.0-10.0)
[2018-01-01 08:45] LABS: ALBUMIN 2.6 GM/DL (3.2-5.2); ALKALINE PHOSPHATASE 67 U/L (45-117); ALT/SGPT 20 U/L (12-78); ANION GAP 8 MEQ/L (8-16); AST/SGOT 15 U/L (7-37); BILIRUBIN,TOTAL 0.4 MG/DL (0.2-1.0); BLOOD UREA NITROGEN 11 MG/DL (7-18); CALCIUM LEVEL 8.3 MG/DL (8.8-10.2); CARBON DIOXIDE LEVEL 21 MEQ/L (21-32); CHLORIDE LEVEL 112 MEQ/L (98-107); CREATININE FOR GFR 0.84 MG/DL (0.55-1.30); GLOMERULAR FILTRATION RATE > 60.0 (>45); GLUCOSE, FASTING 132 MG/DL (70-100); MAGNESIUM LEVEL 1.9 MG/DL (1.8-2.4); POTASSIUM SERUM 3.5 MEQ/L (3.5-5.1); SODIUM LEVEL 141 MEQ/L (136-145); TOTAL PROTEIN 5.8 GM/DL (6.4-8.2)
[2018-01-01] MEDS: HEPARIN SOD (PORCINE) 5000 UNITS/ML VIAL SC (09:00)
[2018-01-01] MEDS: FIDAXOMICIN 200 MG TAB (DIFICID) PO (09:48)
[2018-01-01] MEDS: LACTOBACILLUS ACIDOPHILUS CAP (BACID) PO (09:48)
[2018-01-01] MEDS: MAGNESIUM OXIDE 400 MG TAB (MAG-OX) PO (09:49)
[2018-01-01] MEDS: TACROLIMUS 1 MG CAP (J7507) PO (09:49)
[2018-01-01] MEDS: METOPROLOL TART 25 MG TABLET PO (09:49)
[2018-01-01] MEDS: LOSARTAN 25 MG TAB PO (09:50)
[2018-01-01 09:53] LABS: ALBUMIN/GLOBULIN RATIO 1.23 (1.00-1.93)
[2018-01-01 12:11] LABS: BEDSIDE GLUCOSE 147 MG/DL (80-115)
[2018-01-01] MEDS ORDERED: ENTER DRUG NAME HERE (PATIENT'S OWN MED) PO (21:00)
== END 2018-01-01 15:50 | disposition home or self-care (01) | DRG 872 ==
LOC: M ED 14:48 → M MS4PR 12-31 21:26 → M ED INP 18:26 → M PCU 21:27
DX: A41.9 Sepsis, unspecified organism (principal); A04.71 Enterocolitis due to Clostridium difficile, recurrent; E87.4 Mixed disorder of acid-base balance; N17.9 Acute kidney failure, unspecified; Z94.0 Kidney transplant status; A04.0 Enteropathogenic Escherichia coli infection; D84.9 Immunodeficiency, unspecified; E11.9 Type 2 diabetes mellitus without complications; F17.210 Nicotine dependence, cigarettes, uncomplicated; I10 Essential (primary) hypertension; E83.42 Hypomagnesemia; E78.5 Hyperlipidemia, unspecified; D63.1 Anemia in chronic kidney disease; Z98.41 Cataract extraction status, right eye; Z98.42 Cataract extraction status, left eye; Z90.49 Acquired absence of other specified parts of digestive tract; Z90.81 Acquired absence of spleen; Z79.4 Long term (current) use of insulin; Z79.52 Long term (current) use of systemic steroids; Z79.899 Other long term (current) drug therapy; Z88.8 Allergy status to other drugs, medicaments and biological substances; Z96.643 Presence of artificial hip joint, bilateral

== ENCOUNTER → 2018-03-05 | Outpatient (REF) | payer MEDICARE ==
[2018-03-05 14:25] LABS: CHOLESTEROL LEVEL 151 MG/DL (<200); CHOLESTEROL RISK RATIO 2.516 (<5); HDL CHOLESTEROL 60 MG/DL (>40); LDL CHOLESTEROL 77 MG/DL (<100); NON-HDL-C 91 MG/DL; TRIGLYCERIDES LEVEL 72 MG/DL (<150)
== END ==
LOC: M LAB REF 13:32
DX: Z04.71 Encounter for examination and observation following alleged adult physical abuse (principal); Z94.0 Kidney transplant status; E78.00 Pure hypercholesterolemia, unspecified
CPT/HCPCS: 80061

== ENCOUNTER → 2018-03-29 | Outpatient (REF) | payer MEDICARE ==
[2018-04-02 14:13] LABS: FK 506 (TACROLIMUS) LABCORP 5.1 ng/mL (2.0-20.0)
== END ==
LOC: M LAB REF 13:03
DX: Z94.0 Kidney transplant status (principal)
CPT/HCPCS: 80197

== ENCOUNTER → 2018-06-27 | Outpatient (REF) | payer MEDICARE ==
[~2018-06-27] MED LIST changes: +DIFI200T PO; +DILT120T PO; +ICAPCAP PO; +LOSA25TA14 PO; -LOSA25TA8 PO; +LOSA50TA88 PO; +PROBCAP8 PO; +RANI150T PO; +SODI325T9 PO; +VANC1CAP6 PO
== END ==
LOC: M LAB REF 13:05
PROVIDERS: ATTEND Internal Medicine Nephrology
DX: Z94.0 Kidney transplant status (principal)

== ENCOUNTER → 2018-11-11 | Outpatient (REF) | payer MEDICARE ==
[~2018-11-11] MED LIST changes: -/ONDA4TA PO; -CALC0.5C OR; +CALC0.5C14 OR; +DILT1CAP5 PO; -DILT240C77 PO; +ONDA-1 PO
== END ==
LOC: M LAB REF 13:15
PROVIDERS: ATTEND Internal Medicine Nephrology
DX: Z94.0 Kidney transplant status (principal)

== ENCOUNTER → 2019-03-13 | Outpatient (CLI) | payer MEDICARE ==
--- NOTE | 2019-03-13 10:10 | REP ---
RENAL TRANSPLANT ULTRASOUND: Real-time ultrasound evaluation and duplex interrogation of the left renal transplant performed. Trace fluid is seen along the lower pole of the renal transplant in the left lower quadrant. There is mild dilatation of the renal pelvis without calyceal dilatation. Renal transplant measures 13.4 x 7.0 x 6.1 cm. Resistive indices are measured in the upper, middle, and lower thirds of the renal transplant and range between 0.73 and 0.74. Acceleration times range between 0.052 and 0.068. Peak systolic velocity of the left iliac artery pre-anastomosis is 190 cm/s, at the anastomosis 219 cm/s and post anastomosis 102 cm/s. There are two renal arteries feeding the renal transplant which connect with the external iliac artery. Both of these demonstrate normal flow velocities, each having a maximum velocity at their anastomosis of 184 cm/s with lower peak systolic velocities more distally. Peak systolic velocity ratio of the renal artery to external iliac artery is 0.97. Patent flow is seen in the transplant renal vein. Urinary bladder measures 9.6 x 5.9 x 4.9 cm for a total volume of 278 mL. Ureteral jet is visualized within the left side of the bladder. IMPRESSION: Normal appearing renal transplant left lower quadrant as discussed in detail above. Electronically Signed by Chandu Scott MD 03/13/2019 11:46 A
== END ==
LOC: M RAD 07:56
PROVIDERS: ATTEND Internal Medicine Nephrology
DX: Z94.0 Kidney transplant status (principal); I15.0 Renovascular hypertension

== ENCOUNTER → 2019-03-19 | Outpatient (REF) | payer MEDICARE ==
[~2019-03-19] MED LIST changes: -SIMV20TA2 PO; +SIMV20TA22 PO
[2019-03-19 13:31] LABS: CHOLESTEROL RISK RATIO 2.115 (<5)
== END ==
LOC: M LAB REF 12:48
PROVIDERS: ATTEND Internal Medicine Nephrology
DX: E78.00 Pure hypercholesterolemia, unspecified (principal)

== ENCOUNTER → 2019-04-07 | Outpatient (REF) | payer MEDICARE ==
[2019-04-07 19:53] LABS: COMPLEMENT C3 86 MG/DL (90-180); COMPLEMENT C4 20 MG/DL (10-40)
== END ==
LOC: M LAB REF 17:53
PROVIDERS: ATTEND Internal Medicine Nephrology
DX: R80.9 Proteinuria, unspecified (principal); R31.9 Hematuria, unspecified

== ENCOUNTER → 2019-05-12 | Outpatient (REF) | payer MEDICARE ==
[2019-05-14 14:31] LABS: ANTI-GLOMERULAR BASEMENT MEMB 4 units (0-20)
== END ==
LOC: M LAB REF 12:55
PROVIDERS: ATTEND Internal Medicine Nephrology
DX: R80.9 Proteinuria, unspecified (principal); R31.9 Hematuria, unspecified; Z94.0 Kidney transplant status

== ENCOUNTER → 2019-05-14 | Outpatient (REF) | payer MEDICARE ==
[2019-05-14 17:43] LABS: INR 1.01
== END ==
LOC: M LAB REF 16:45
PROVIDERS: ATTEND Internal Medicine Nephrology
DX: R31.9 Hematuria, unspecified (principal)

== ENCOUNTER → 2019-05-19 | Outpatient (CLI) | payer MEDICARE ==
[~2019-05-19] MED LIST changes: +ISOVUE-300 61% 50ML VIAL (Q9967) As Ordered ONE; +LIDOCAINE 1% MDV 20ML VIAL As Ordered ONE; +MIDAZOLAM INJ 2 MG/2 ML VIAL (J2250) As Ordered ONE; +diphenhydrAMINE INJ 50MG/ML VIAL (J1200) As Ordered ONE; +fentaNYL 100 MCG/2 ML INJECTION (J3010) As Ordered ONE
[2019-05-19 12:09] VITALS: BP 159/86
--- NOTE | 2019-05-19 14:29 | IRHP ---
[facility] IR Pre-Procedure H & P General Date of Service: May 19, 2019 Procedure: Same Day Surgery Interval History and Physical I have seen the patient and reviewed last H & P performed within 30 days. There is no significant interval change. History of Present Illness Chief Complaint The patient is a 64-year-old female admitted with a reason for visit of Proteinuria, Kidney Transplant. PRE-PROCEDURE DIAGNOSIS: kidney transplant HEART: normal rate. LUNGS: normal breathing at rest. ASA Classification ASA Classification: III-Severe systemic dis. Mallampati Score: II NPO: Yes Problems with prior sedation: No Obstructive Sleep Apnea: No Plan moderate sedation Allergies Coded Allergies: MS - Triazolam (Verified Allergy, Mild, RASH, 05/01/17) MS - Hydralazine (Verified Allergy, Unknown, 12/29/17) unknown reaction MS - Nifedipine (Verified Adverse Reaction, Intermediate, TACHYCARDIA, 05/01/17) Home Medications Scheduled (Icaps), 1 CAP PO DAILY, (Reported) Diltiazem HCl (Diltiazem HCl), 120 MG PO BID, (Reported) Insulin Glargine,Hum.rec.anlog (Lantus Solostar), 14 UNITS SC QHS, (Reported) Insulin Human Lispro (Humalog), 1 DOSE SC AC, (Reported) L.acidoph/L.rhamn/B.bif/B.long (Probiotic Acidophilus Biobeads), 1 CAP PO DAILY, (Reported) Losartan Potassium (Losartan Potassium), 50 MG PO DAILY, (Reported) Magnesium Oxide (Magnesium Oxide 400), 400 MG PO BID, (Reported) Metoprolol Tartrate (Metoprolol Tartrate), 25 MG PO DAILY, (Reported) Mycophenolate Sodium (Mycophenolic Acid), 540 MG PO BID, (Reported) Prednisone (Prednisone), 5 MG PO DAILY, (Reported) Simvastatin (Simvastatin), 20 MG PO DAILY, (Reported) Tacrolimus (Tacrolimus), 1 MG PO BID, (Reported) Vancomycin HCl (Vancocin HCl), 125 MG PO QID.Q6hp Scheduled PRN Acetaminophen (Tylenol), 650 MG PO Q4H PRN for PAIN, (Reported) VS, I&O, 24H, Fishbone Vital Signs/I&O Vital Signs Date Time Temp Pulse Resp B/P (MAP) Pulse Ox O2 Delivery O2 Flow Rate FiO2 05/19/19 12:09 68 18 98 Room Air 05/19/19 09:18 2 05/19/19 08:20 99.0 DARCI SY MD May 19, 2019 14:29
--- NOTE | 2019-05-19 14:31 | POST-OPPD ---
Postoperative Procedure Note Date Of Procedure: May 19, 2019 Time Of Procedure: 14:29 PREOPERATIVE DIAGNOSIS: proteinuria. transplant kidney POSTOPERATIVE DIAGNOSIS: same FINDINGS: left lower quadrant transplant kidney PROCEDURE: kidney Bx SURGEON: martín ANESTHESIA: mod sed SPECIMENS: core x 4 ESTIMATED BLOOD LOSS: < 5 ml COMPLICATIONS: < 5 ml POSTOPERATIVE CONDITION: stable DARCI SY MD May 19, 2019 14:31
--- NOTE | 2019-05-20 08:18 | REP ---
IR CT guided kidney biopsy. IR moderate sedation. Clinical information: Transplant kidney, Proteinuria. Physician: Dr. Coleman. Procedure: The patient was advised of the benefits, risks and alternatives of the procedure and informed consent was obtained. The time-out was performed with verification of the patient's name, MRN, site of procedure and type of procedure to be performed. The patient was positioned in the supine position on the table. The site was prepped and draped in the usual sterile fashion. Moderate sedation was performed by the physician including the presence of an independent trained observer who assisted in monitoring the patient's level of consciousness and physiologic status. Following the administration of Fentanyl and Versed, the physician spent 45 minutes of continuous face to face time with the patient. One Preliminary CT of the kidneys demonstrates transplant kidney in the left lower quadrant. Atrophic prior transplanted kidney in the right lower quadrant. The anticipated puncture site was anesthetized with lidocaine. A 17 G coaxial needle was inserted into the lower pole of the left lower quadrant kidney, under intermittent CT guidance. An 18 Gauge biopsy device was inserted through the coaxial needle and used to obtain core biopsies of the left Kidney, under intermittent CT guidance. The specimen was labeled with the patient's name and medical record number and sent for further analysis. The coaxial needle and biopsy device were removed, pressure held and hemostasis achieved. A follow-up CT through the area demonstrates small hematoma. A sterile dressing was applied to the site. The patient tolerated the procedure well and was returned to the PRU in stable condition. EBL: < 5 ml. Complications: None. Conclusion: 1. CT demonstrates left lower quadrant transplant kidney. 2. Successful CT -guided core kidney biopsy. Patient to follow up with referring provider for biopsy results. Thank you for this referral. Electronically Signed by Lyn Coleman MD 05/20/2019 08:17 A
== END ==
LOC: M IRPRO 08:00
PROVIDERS: ATTEND Internal Medicine Nephrology
DX: R80.9 Proteinuria, unspecified (principal); Z94.0 Kidney transplant status
CPT/HCPCS: 50200; 77012; 88300; 99152; 99153; J1200; J2250; J3010

== ENCOUNTER → 2019-05-23 | Outpatient (REF) | payer MEDICARE ==
[~2019-05-23] MED LIST changes: -ISOVUE-300 61% 50ML VIAL (Q9967) As Ordered ONE; -LIDOCAINE 1% MDV 20ML VIAL As Ordered ONE; -MIDAZOLAM INJ 2 MG/2 ML VIAL (J2250) As Ordered ONE; -diphenhydrAMINE INJ 50MG/ML VIAL (J1200) As Ordered ONE; -fentaNYL 100 MCG/2 ML INJECTION (J3010) As Ordered ONE
[2019-05-27 10:10] LABS: ANCA-ATYPICAL <1:20 titer (Neg:<1:20); ANTI DS-DNA AB Negative (Negative); CYTOPLASMIC NEUTROP AB ANCA-C <1:20 titer (Neg:<1:20); PERINUCLEAR AB ANCA-P <1:20 titer (Neg:<1:20)
== END ==
LOC: M LAB REF 13:43
PROVIDERS: ATTEND Internal Medicine Nephrology
DX: R80.9 Proteinuria, unspecified (principal); R31.9 Hematuria, unspecified

== ENCOUNTER → 2019-06-02 | Outpatient (REF) | payer MEDICARE ==
[2019-06-02 14:18] LABS: ALBUMIN 3.3 GM/DL (3.2-5.2); CREATININE FOR GFR 1.08 MG/DL (0.55-1.30); GLOMERULAR FILTRATION RATE 54.7 (>45); MAGNESIUM LEVEL 2.2 MG/DL (1.8-2.4); PHOSPHORUS LEVEL 3.7 MG/DL (2.5-4.9)
[2019-06-02 14:19] LABS: BASO # 0.1 10^3/uL (0.0-0.2); BASO % 0.6 % (0.0-1.0); EOS # 0.2 10^3/uL (0.0-0.5); EOS % 1.9 % (0.0-3.0); HEMATOCRIT 33.1 % (36.0-47.0); LYMPH % 26.9 % (24.0-44.0); MEAN CORPUSCULAR HEMOGLOBIN 29.9 pg (27.0-33.0); MEAN CORPUSCULAR HGB CONC 30.2 g/dl (32.0-36.5); MEAN CORPUSCULAR VOLUME 99.1 fl (80.0-96.0); MONO # 0.9 10^3/uL (0.0-0.8); MONO % 8.2 % (0.0-5.0); NEUTROPHILS # 6.9 10^3/uL (1.5-8.5); PLATELET COUNT, AUTOMATED 231 10^3/uL (150-450); RED BLOOD COUNT 3.34 10^6/uL (4.00-5.40); WHITE BLOOD COUNT 11.1 10^3/uL (4.0-10.0)
== END ==
LOC: M LAB REF 13:24
PROVIDERS: ATTEND Internal Medicine Nephrology
DX: Z94.0 Kidney transplant status (principal); D84.9 Immunodeficiency, unspecified; Z79.899 Other long term (current) drug therapy

== ENCOUNTER 2019-09-05 09:36 | Outpatient (CLI) | payer MEDICARE ==
[~2019-09-05] VITALS: Ht 165.1 cm; Wt 52.3 kg
[2019-09-05 09:40] VITALS: BP 170/70
[2019-09-05] MEDS ORDERED: BELATACEPT IV ONE (09:45)
[2019-09-05] MEDS ORDERED: NS IV ONE (09:45)
[2019-09-05 11:10] VITALS: BP 180/88
== END 2019-09-05 11:10 | disposition home or self-care (01) ==
LOC: M INFU 09:36
PROVIDERS: ATTEND Internal Medicine Nephrology
DX: Z94.0 Kidney transplant status (principal); Z88.8 Allergy status to other drugs, medicaments and biological substances; Z79.899 Other long term (current) drug therapy
CPT/HCPCS: 96365; J0485

== ENCOUNTER 2019-10-03 11:16 | Outpatient (CLI) | payer MEDICARE ==
[~2019-10-03] VITALS: Ht 165.1 cm; Wt 52.3 kg
[2019-10-03 11:20] VITALS: BP 185/90
[2019-10-03] MEDS ORDERED: NULO250I IV (11:39)
[2019-10-03] MEDS ORDERED: BELATACEPT IV ONE (12:30)
[2019-10-03] MEDS ORDERED: NS IV ONE (12:30)
[2019-10-03 12:40] VITALS: BP 178/85
== END 2019-10-03 12:40 | disposition home or self-care (01) ==
LOC: M INFU 11:16
PROVIDERS: ATTEND Internal Medicine Nephrology
DX: Z94.0 Kidney transplant status (principal); Z79.899 Other long term (current) drug therapy; Z88.8 Allergy status to other drugs, medicaments and biological substances
CPT/HCPCS: 96365; J0485

== ENCOUNTER 2019-10-31 11:44 | Outpatient (CLI) | payer MEDICARE ==
[~2019-10-31] VITALS: Ht 165.1 cm; Wt 52.3 kg
[~2019-10-31 11:44] MED LIST changes: +NULO250I IV
[2019-10-31 12:00] VITALS: BP 110/58
[2019-10-31] MEDS ORDERED: NS IV ONE (13:00)
[2019-10-31] MEDS ORDERED: BELATACEPT IV ONE (13:00)
[2019-10-31 13:15] VITALS: BP 128/88
== END 2019-10-31 13:15 | disposition home or self-care (01) ==
LOC: M INFU 11:44
PROVIDERS: ATTEND Internal Medicine Nephrology
DX: Z94.0 Kidney transplant status (principal)
CPT/HCPCS: 96365; J0485

== ENCOUNTER 2019-11-28 11:30 | Outpatient (CLI) | payer MEDICARE ==
[~2019-11-28 11:30] MED LIST changes: +BELATACEPT ONE
== END 2019-11-28 12:40 | disposition home or self-care (01) ==
LOC: M INFU 11:30
PROVIDERS: ATTEND Internal Medicine Nephrology
DX: Z94.0 Kidney transplant status (principal)
CPT/HCPCS: 96365; J0485

== ENCOUNTER 2019-12-26 11:45 | Outpatient (CLI) | payer MEDICARE ==
[~2019-12-26] VITALS: Ht 165.1 cm; Wt 52.3 kg
[~2019-12-26 11:45] MED LIST changes: +BELATACEPT IV ONE; -BELATACEPT ONE; +NS IV ONE
[2019-12-26 11:50] VITALS: BP 172/89
[2019-12-26] MEDS ORDERED: LASI20TA3 PO (13:07)
[2019-12-26 13:10] VITALS: BP 155/78
== END 2019-12-26 13:10 | disposition home or self-care (01) ==
LOC: M INFU 11:45
PROVIDERS: ATTEND Internal Medicine Nephrology
DX: Z94.0 Kidney transplant status (principal); Z88.8 Allergy status to other drugs, medicaments and biological substances
CPT/HCPCS: 96365; J0485

== ENCOUNTER → 2020-01-09 | Outpatient (REF) | payer MEDICARE ==
[~2020-01-09] MED LIST changes: -BELATACEPT IV ONE; +LASI20TA3 PO; -NS IV ONE
== END ==
LOC: M LAB REF 17:10
PROVIDERS: ATTEND Internal Medicine Nephrology
DX: T86.11 Kidney transplant rejection (principal)

== ENCOUNTER 2020-01-23 11:22 | Outpatient (CLI) | payer MEDICARE ==
[~2020-01-23] VITALS: Ht 165.1 cm; Wt 52.3 kg
[2020-01-23 11:40] VITALS: BP 123/65
[2020-01-23] MEDS: BELATACEPT IV ONE (12:01)
[2020-01-23] MEDS: NS IV ONE (12:01)
[2020-01-23 12:43] VITALS: BP 138/62
== END 2020-01-23 12:45 | disposition home or self-care (01) ==
LOC: M INFU 11:22
PROVIDERS: ATTEND Internal Medicine Nephrology
DX: Z94.0 Kidney transplant status (principal)
CPT/HCPCS: 96365; J0485

== ENCOUNTER 2020-02-27 11:28 | Outpatient (CLI) | payer MEDICARE ==
[~2020-02-27] VITALS: Ht 165.1 cm; Wt 52.3 kg
[2020-02-27] MEDS ORDERED: BELATACEPT IV ONE (11:30)
[2020-02-27] MEDS ORDERED: NS IV ONE (11:30)
[2020-02-27 11:35] VITALS: BP 172/84
[2020-02-27 13:05] VITALS: BP 150/80
== END 2020-02-27 13:05 | disposition home or self-care (01) ==
LOC: M INFU 11:28
PROVIDERS: ATTEND Internal Medicine Nephrology
DX: Z94.0 Kidney transplant status (principal); Z88.8 Allergy status to other drugs, medicaments and biological substances
CPT/HCPCS: 96365; J0485

== ENCOUNTER 2020-03-26 11:25 | Outpatient (CLI) | payer MEDICARE ==
[~2020-03-26] VITALS: Ht 165.1 cm; Wt 52.3 kg
[2020-03-26] MEDS ORDERED: BELATACEPT IV ONE (11:30)
[2020-03-26] MEDS ORDERED: NS IV ONE (11:30)
[2020-03-26 11:55] VITALS: BP 144/73
[2020-03-26 12:52] VITALS: BP 144/73
== END 2020-03-26 12:50 | disposition home or self-care (01) ==
LOC: M INFU 11:25
PROVIDERS: ATTEND Internal Medicine Nephrology
DX: Z94.0 Kidney transplant status (principal); Z88.8 Allergy status to other drugs, medicaments and biological substances
CPT/HCPCS: 96365; J0485

== ENCOUNTER 2020-04-26 11:45 | Outpatient (CLI) | payer MEDICARE ==
[~2020-04-26] VITALS: Ht 165.1 cm; Wt 52.3 kg
[~2020-04-26 11:45] MED LIST changes: +BELATACEPT IV ONE; +NS IV ONE
[2020-04-26 11:50] VITALS: BP 168/88
[2020-04-26 13:05] VITALS: BP 124/61
== END 2020-04-26 13:06 | disposition home or self-care (01) ==
LOC: M INFU 11:45
PROVIDERS: ATTEND Internal Medicine Nephrology
DX: Z94.0 Kidney transplant status (principal); Z88.8 Allergy status to other drugs, medicaments and biological substances
CPT/HCPCS: 96365; J0485

== ENCOUNTER 2020-04-27 12:58 | Outpatient (CLI) | payer MEDICARE ==
[~2020-04-27] VITALS: Ht 165.1 cm; Wt 51.4 kg
[~2020-04-27 12:58] MED LIST changes: -BELATACEPT IV ONE; -NS IV ONE
[2020-04-27] MEDS ORDERED: NS 1,000 ML IV SCH (13:00)
[2020-04-27] MEDS ORDERED: NS IV ONE (13:00)
[2020-04-27] MEDS ORDERED: FERRIC CARBOXYMALTOSE IV ONE (13:00)
[2020-04-27 13:25] VITALS: BP 142/63
[2020-04-27 14:10] VITALS: BP 152/68
[2020-04-27 15:20] VITALS: BP 162/74
== END 2020-04-27 15:30 | disposition home or self-care (01) ==
LOC: M INFU 12:58
PROVIDERS: ATTEND Internal Medicine Nephrology
DX: Z94.0 Kidney transplant status (principal); Z88.8 Allergy status to other drugs, medicaments and biological substances
CPT/HCPCS: 96365; 96366; J1439

== ENCOUNTER 2020-05-24 11:28 | Outpatient (CLI) | payer MEDICARE ==
[~2020-05-24] VITALS: Ht 165.1 cm; Wt 52.3 kg
[2020-05-24] MEDS ORDERED: BELATACEPT IV ONE (11:30)
[2020-05-24] MEDS ORDERED: NS IV ONE (11:30)
[2020-05-24 12:30] VITALS: BP 104/57
[2020-05-24 13:15] VITALS: BP 110/60
== END 2020-05-24 13:25 | disposition home or self-care (01) ==
LOC: M INFU 11:28
PROVIDERS: ATTEND Internal Medicine Nephrology
DX: Z94.0 Kidney transplant status (principal); Z88.8 Allergy status to other drugs, medicaments and biological substances
CPT/HCPCS: 96365; J0485

== ENCOUNTER 2020-06-21 11:13 | Outpatient (CLI) | payer MEDICARE ==
[~2020-06-21] VITALS: Ht 167.6 cm; Wt 52.3 kg
[2020-06-21 11:15] VITALS: BP 125/61
[2020-06-21] MEDS ORDERED: NS IV ONE (12:30)
[2020-06-21] MEDS ORDERED: BELATACEPT IV ONE (12:30)
[2020-06-21 13:08] VITALS: BP 130/68
== END 2020-06-21 13:10 | disposition home or self-care (01) ==
LOC: M INFU 11:13
PROVIDERS: ATTEND Internal Medicine Nephrology
DX: Z94.0 Kidney transplant status (principal); Z88.8 Allergy status to other drugs, medicaments and biological substances
CPT/HCPCS: 96365; J0485

== ENCOUNTER 2020-07-22 11:29 | Outpatient (CLI) | payer MEDICARE ==
[~2020-07-22] VITALS: Ht 167.6 cm; Wt 52.3 kg
[2020-07-22] MEDS ORDERED: BELATACEPT IV ONE (11:30)
[2020-07-22] MEDS ORDERED: NS IV ONE (11:30)
[2020-07-22 11:45] VITALS: BP 152/76
[2020-07-22 12:38] VITALS: BP 106/67
[2020-07-22 13:09] VITALS: BP 155/76
== END 2020-07-22 13:10 | disposition home or self-care (01) ==
LOC: M INFU 11:29
PROVIDERS: ATTEND Internal Medicine Nephrology
DX: Z94.0 Kidney transplant status (principal); Z88.8 Allergy status to other drugs, medicaments and biological substances
CPT/HCPCS: 96365; J0485

== ENCOUNTER 2020-08-23 11:35 | Outpatient (CLI) | payer MEDICARE ==
[~2020-08-23] VITALS: Ht 165.1 cm; Wt 51.8 kg
[~2020-08-23 11:35] MED LIST changes: +BELATACEPT IV ONE; +NS IV ONE
[2020-08-23 11:57] VITALS: BP 171/81
[2020-08-23 13:10] VITALS: BP 111/58
== END 2020-08-23 13:15 | disposition home or self-care (01) ==
LOC: M INFU 11:35
PROVIDERS: ATTEND Internal Medicine Nephrology
DX: Z94.0 Kidney transplant status (principal); Z88.8 Allergy status to other drugs, medicaments and biological substances
CPT/HCPCS: 96365; J0485

== ENCOUNTER 2020-09-05 00:43 | Observation (INO) | payer MEDICARE ==
[~2020-09-05] VITALS: Ht 162.6 cm; Wt 52.2 kg
[~2020-09-05 00:43] MED LIST changes: -BELATACEPT IV ONE; -NS IV ONE
[2020-09-05 02:12] VITALS: BP 167/77
[2020-09-05] MEDS ORDERED: ACET1TAB55 PO (02:44)
[2020-09-05] MEDS ORDERED: ICAPTAB5 PO (02:44)
[2020-09-05] MEDS ORDERED: VITA50005 PO (02:44)
[2020-09-05] MEDS ORDERED: SODI325T9 PO (02:44)
[2020-09-05] MEDS ORDERED: ACETAMINOPHEN TAB 650MG DOSE (2X325MG) PO PRN (03:40)
[2020-09-05] MEDS ORDERED: MAALOX 30 ML SUSP *UDC PO PRN (03:40)
[2020-09-05] MEDS ORDERED: GLUCAGON INJ 1MG VIAL SC PRN (03:40)
[2020-09-05] MEDS ORDERED: MOM 30ML SUSPENSION UDC PO PRN (03:40)
[2020-09-05] MEDS ORDERED: DEXTROSE 50% 50 ML SYRINGE IV PRN (03:40)
[2020-09-05] MEDS ORDERED: GLUCOSE 4GM CHEW TABLET PO PRN (03:40)
--- NOTE | 2020-09-05 03:52 | HPEPDOC ---
[facility] Medical History & Physical Date of Admission September 05, 2020 Date of Service: September 05, 2020 Attending Physician: GONZALEZ AMARO MD History and Physical CHIEF COMPLAINT: [65 y/o F transfer from [place] after syncopal episode] HISTORY OF PRESENT ILLNESS: [This is a 65 y/o F with a pmh of htn, gerd, cdiff, kidney transplant, and DM1 d/t pancreatic resection who presented to [facility] ED late last night after a syncopal episode. Patient states that she had two drinks and smoked a small amount of marijuana with her family when she byron denly became dizzy and the next thing she knew she was lying on the floor. Patient states that her family told her that she went forward in her chair and hit her head on the table. Family then moved her to the floor and began chest compressions as they believed she was having a cardiac event. Patient states at this time she woke up and felt groggy and confused. Workup in [place] ED was unremarkable. As of now, patient states that she just feels tired and hungry. Patient states that she had one episode of emesis at [place] just before her transfer and blames her hunger on this. Patient states she is no longer nauseated at this stephanie e. Patient currently denies vision changes, dizziness, lightheadedness, confusion, chest pain, sob, peripheral edema, fevers, chills. ] PAST MEDICAL HISTORY: 1. [See HPI PAST SURGICAL HISTORY: 1. [B/L cataract removal]. 2. [Cholecystectomy]. 3. [Renal transplant 4. Pancreatic resection 5. Splenectomy 6. L rotator cuff repair 7. B/L hip arthroplasty]. SOCIAL HISTORY: Tobacco use:[Current smoker] ETOH: [Admits to occasional alcohol use] Illicit drug use: [Admits to occasional marijuana use] FAMILY HISTORY: Reviewed - none pertinent ALLERGIES: Please see below. REVIEW OF SYSTEMS: CONSTITUTIONAL: [See HPI]. HEENT: [Denies URI sx]. CARDIOVASCULAR: [See HPI]. RESPIRATORY: [See HPI]. GASTROINTESTINAL: [Denies abd pain, n/v/d/c.]. GENITOURINARY: [Denies dysuria]. SKIN: [Denies rash]. MUSCULOSKELETAL: [Denies acute joint/back pain.]. NEUROLOGICAL: [Denies paresthesias]. ENDOCRINE: [DM1]. HEMATOLOGIC/LYMPHATIC: [Denies easy bruising]. HOME MEDICATIONS: Please see below. PHYSICAL EXAMINATION: VITAL SIGNS: Please see below. GENERAL APPEARANCE: [This is a chronically ill appearing 65 y/o female. she is laying in bed no respiratory distress.]. HEENT: [Mild ecchymoses to left side of forehead. No mass or lesion. EOMI. No scleral icterus or conjunctival erythema. Nares patent. oral mucosa dry without erythema.]. CARDIOVASCULAR: [Regular rate, rhythm. 2/6 blowing murmur appreciated at the up per right sternal border.]. LUNGS: [Good air flow appreciated b/l. No wheezing, rales, rhonchi.]. ABDOMEN: [Soft, non-tender]. MUSCULOSKELETAL: [No joint deformity]. EXTREMITIES: [No peripheral edema. No overlying skin changes. Pulses intact.]. NEUROLOGICAL: [Sensation intact. Patient moves all fours freely on exam. Speech clear. A+Ox3. No focal deficits]. PSYCHIATRIC: [Mood and affect appear appropriate.]. LABORATORY DATA: See below. IMAGING: [CXR, CT Head performed at [facility] unremarkable.] MICROBIOLOGY: Please see below. ASSESSMENT: [This is a 65 y/o F with a pmh of htn, gerd, cdiff, kidney transplant, and DM1 d/t pancreatic resection who presented to [facility] ED late last night after a syncopal episode. Patient enjoyed a few alcoholic drinks and some marijuana use tonight before becoming dizzy and passing out in her chair. Patient transferred to us for syncope w/u and management of patient's complicated pmh. ]. . PLAN: 1. [Syncope - Most likely d/t concomitant alcohol and marijuana use. Other ddx include tia. - Will order echo w bubble study, carotid us, bnp - Will admit patient under obs to med surg 2. S/P renal transplant - renal function at baseline at [facility] - cr 1.3 - Continue immunosuppressive mycophenalate, prednisone 3. DM1 - sliding scale, hypoglycemic protocol - continue at home basal insulin 4. HTN - continue metoprolol, cozaar, lasix, cardizem 5. HLD - continue simvastatin DVT prophylaxis - Teds and SCDs]. Vital Signs Vital Signs Date Time Temp Pulse Resp B/P (MAP) Pulse Ox O2 Delivery O2 Flow Rate FiO2 09/05/20 02:12 98.2 80 18 167/77 (107) 97 Room Air Home Medications Scheduled B2/Vits A,C,E/Lut/Zeaxanth/Min (Icaps Tablet) 1 Each Tablet.er, 1 TAB PO DAILY Belatacept IV (Nulojix) 250 Mg Vial, 250 MG IV QMONTH BEGINNING OF MONTH Diltiazem HCl (Diltiazem HCl) 120 Mg Tab, 120 MG PO BID Ergocalciferol (Vitamin D2) (Vitamin D2) 50,000 Units Cap, 50,000 UNITS PO QWEEK SUNDAY Furosemide (Lasix) 20 Mg Tablet, 20 MG PO DAILY Insulin Glargine,Hum.rec.anlog (Lantus Solostar) 100 Unit/Ml Inj, 14 UNITS SC QHS 12-14 UNITS Insulin Human Lispro (Humalog) 1 Units/0.01 Ml Inj, 1 DOSE SC AC L.acidoph/L.rhamn/B.bif/B.long (Probiotic Acidophilus Biobeads) 1 Cap Cap, 1 CAP PO DAILY Losartan Potassium (Losartan Potassium) 50 Mg Tab, 50 MG PO DAILY Metoprolol Tartrate (Metoprolol Tartrate) 25 Mg Tab, 25 MG PO BID Mycophenolate Sodium (Mycophenolic Acid) 180 Mg Tab, 540 MG PO BID Prednisone (Prednisone) 5 Mg Tab, 5 MG PO QHS Simvastatin (Simvastatin) 20 Mg Tab, 20 MG PO QHS Sodium Bicarbonate (Sodium Bicarbonate) 325 Mg Tablet, 325 MG PO DAILY Scheduled PRN Acetaminophen (Acetaminophen) 325 Mg Tablet, 650 MG PO Q4H PRN for PAIN / FEVER Allergies Coded Allergies: triazolam (Verified Allergy, Mild, RASH, 09/05/19) hydralazine (Verified Allergy, Unknown, 09/05/19) nifedipine (Verified Adverse Reaction, Mild, TACHYCARDIA, 09/05/19) A-FIB/CHADSVASC A-FIB History Current/History of A-Fib/PAF?: No Attending Note Attending Note time of service 645am Ms. Parra is a 65 yr old F w DM1, HTN, DLP , ANCA vasculitis s/p renal transplant x2, recurrent C diff infections who was transferred from [place] for evaluation of syncope (after drinking whisky and THC; she is also slightly hypoglycemic. Plan: telemetry / monitor FSBS frequently / hypoglycemia protocol / reduce levemir from 15 to 5 units daily / check orthostats / we will ask the day time team to consult Nephrology rest per HINA Telles's H&P ELSA TELLES September 05, 2020 03:52 GONZALEZ AMARO MD September 05, 2020 06:28
[2020-09-05 06:00] VITALS: BP 173/86
[2020-09-05] MEDS: HumaLOG INSULIN (NovoLOG) PER UNIT SC SCH ×3 (06:00→18:27)
[2020-09-05 06:46] LABS: HEMOGLOBIN A1c 6.7 %
[2020-09-05 06:53] LABS: BASO # 0.1 10^3/uL (0.0-0.2); BASO % 0.6 % (0.0-1.0); EOS # 0.3 10^3/uL (0.0-0.5); EOS % 2.4 % (0.0-3.0); HEMATOCRIT 27.5 % (36.0-47.0); HEMOGLOBIN 8.8 g/dl (12.0-15.5); LYMPH # 2.5 10^3/uL (1.5-5.0); LYMPH % 22.4 % (24.0-44.0); MEAN CORPUSCULAR HEMOGLOBIN 32.4 pg (27.0-33.0); MEAN CORPUSCULAR VOLUME 101.1 fl (80.0-96.0); MONO # 1.5 10^3/uL (0.0-0.8); NEUTROPHILS # 6.7 10^3/uL (1.5-8.5); NEUTROPHILS % 60.3 % (36.0-66.0); PLATELET COUNT, AUTOMATED 208 10^3/uL (150-450); RED BLOOD COUNT 2.72 10^6/uL (4.00-5.40)
[2020-09-05 06:56] LABS: BLOOD UREA NITROGEN 31 MG/DL (7-18); CALCIUM LEVEL 8.6 MG/DL (8.8-10.2); CARBON DIOXIDE LEVEL 23 MEQ/L (21-32); CHLORIDE LEVEL 113 MEQ/L (98-107); CREATININE FOR GFR 0.88 MG/DL (0.55-1.30); GLOMERULAR FILTRATION RATE > 60.0 (>45); GLUCOSE, FASTING 82 MG/DL (70-100); NT-PRO BNP 305 PG/ML (<125); POTASSIUM SERUM 4.3 MEQ/L (3.5-5.1); SODIUM LEVEL 143 MEQ/L (136-145)
[2020-09-05 07:15] LABS: MONO % 13.7 % (2.0-8.0)
[2020-09-05] MEDS ORDERED: HumaLOG INSULIN (NovoLOG) PER UNIT SC SCH ×2 (07:30→21:00)
--- NOTE | 2020-09-05 08:49 | REP ---
INDICATION: syncope COMPARISON: None. TECHNIQUE: Real-time ultrasound evaluation and duplex Doppler interrogation of the extracranial carotid vasculature is performed. FINDINGS: There is mild plaquing and narrowing in both carotid bulbs extending into the internal and external carotid arteries. Luminal narrowing is less than 50%. There is no evidence of hemodynamically significant stenosis of either internal carotid artery. Normal flow velocities are seen. The vertebral arteries demonstrate normal direction of flow. RIGHT LEFT Peak systolic velocity ICA 67.8 cm/s 106.5 cm/s End diastolic velocity ICA 20.2 cm/s 41.5 cm/s Peak systolic velocity CCA 88.7 cm/s 163.7cm/s Peak systolic velocity ECA 102.2 cm/s 87.6 cm/s ICA/CCA ratio 0.8 0.7 IMPRESSION: Bilateral luminal narrowing of the internal carotid arteries less than 50%. No evidence of hemodynamically significant stenosis. <Electronically signed by Chandu Scott > 09/05/20 0846
[2020-09-05] MEDS: FUROSEMIDE 20 MG TAB PO SCH (09:00)
[2020-09-05] MEDS ORDERED: LOSARTAN 50MG TABLET PO SCH (09:00)
[2020-09-05] MEDS ORDERED: MULTIVITAMINS/MINERALS THERAP 1 TAB PO SCH (09:00)
[2020-09-05] MEDS: DOCUSATE SODIUM 100MG CAPSULE PO SCH ×2 (09:00→20:19)
[2020-09-05] MEDS: SODIUM BICARBONATE 325 MG TAB PO SCH (09:35)
[2020-09-05] MEDS: LACTOBACILLUS ACIDOPHILUS CAP (BACID) PO SCH (09:35)
[2020-09-05] MEDS: OCUVITE 1 TAB PO SCH (09:36)
[2020-09-05] MEDS: METOPROLOL TART 25 MG TABLET PO SCH ×2 (09:36→20:19)
[2020-09-05 10:45] VITALS: BP 123/79
--- NOTE | 2020-09-05 11:13 | IPNPDOC ---
Text Note Date of Service The patient was seen on 09/05/20. NOTE SUBJECTIVE: -Feels much better, has a slight headache PHYSICAL EXAMINATION: VITAL SIGNS: Please see below. GENERAL APPEARANCE: 65 y/o W in no acute distress HEENT: Resolving mild ecchymoses to left side of forehead. No swelling or lesion, EOMI, anicteric, MMM CARDIOVASCULAR: Regular rate, rhythm. 2/6 holosystolic murmur throughout precordium, loudest at RUSB and radiating to the carotids LUNGS: CTAB ABDOMEN: Normoactive sounds, soft, NTND EXTREMITIES: No peripheral edema. No overlying skin changes. Pulses intact. NEUROLOGICAL: Sensation intact. Normal gait, Speech clear. A+Ox3. No focal deficits PSYCHIATRIC: Aox3, Mood and affect appear appropriate LABORATORY DATA: Reviewed WBC 11 Hgb 8.8 Platelets 208 Na 143 K 4.3 BUN 31 Cr 0.88 IMAGING: CXR, CT Head performed at [facility] unremarkable. Carotid US: There is mild plaquing and narrowing in both carotid bulbs extending into the internal and external carotid arteries. Luminal narrowing is less than 50%. There is no evidence of hemodynamically significant stenosis of either internal carotid artery. Normal flow velocities are seen. The vertebral arteries demonstrate normal direction of flow. RIGHT LEFT Peak systolic velocity ICA 67.8 cm/s 106.5 cm/s End diastolic velocity ICA 20.2 cm/s 41.5 cm/s Peak systolic velocity CCA 88.7 cm/s 163.7cm/s Peak systolic velocity ECA 102.2 cm/s 87.6 cm/s ICA/CCA ratio 0.8 0.7 IMPRESSION: Bilateral luminal narrowing of the internal carotid arteries less than 50%. No evidence of hemodynamically significant stenosis. MICROBIOLOGY: Please see below. ASSESSMENT: 65 y/o W with a pmh of htn, gerd, cdiff, kidney transplant, and DM1 d/t pancreatic resection who presented to [facility] ED after a syncopal episode after a few alcoholic drinks and some marijuana use before becoming dizzy and passing out in her chair and transferred to [facility] for syncope w/u and management of patient's complicated chronic conditions. PLAN: Syncope - Most likely d/t concomitant alcohol and marijuana use. Other ddx include tia. -TTE pending -Carotid US showed no clinically significant stenosis that could be responsible for syncope -Telemetry -PT/OT -Orthostatic vital signs 2. S/P renal transplant - renal function at baseline - Continue immunosuppressive mycophenalate, prednisone - nephrology consult 3. DM1 - sliding scale, hypoglycemic protocol - continue at home basal insulin 4. HTN - continue metoprolol, cozaar, lasix, cardizem 5. HLD - continue simvastatin DVT prophylaxis - Teds and SCDs. VS,Fishbone, I+O VS, Fishbone, I+O Laboratory Tests 09/05/20 05:23 09/05/20 05:33 Vital Signs Date Time Temp Pulse Resp B/P (MAP) Pulse Ox O2 Delivery O2 Flow Rate FiO2 09/05/20 10:47 123/79 09/05/20 09:35 77 09/05/20 06:00 98.9 18 98 Room Air I&O- Last 24 Hours up to 6 AM 09/05/20 06:00 Intake Total 120 ml Output Total 800 ml Balance -680 ml BEAR WALKER MD September 05, 2020 11:13
[2020-09-05 13:43] LABS: APPEARANCE, URINE CLEAR (CLEAR); BACTERIA, URINE AUTO 1+ (NEGATIVE); BILIRUBIN, URINE AUTO NEGATIVE (NEGATIVE); BLOOD, URINE BLOOD NEGATIVE (NEGATIVE); COLOR, URINE YELLOW (YELLOW); GLUCOSE, URINE (UA) AUTO NEGATIVE (NEGATIVE); KETONE, URINE AUTO NEGATIVE (NEGATIVE); LEUKOCYTE ESTERASE, URINE AUTO NEGATIVE (NEGATIVE); MUCUS, URINE SMALL (NEGATIVE); NITRITE, URINE AUTO NEGATIVE (NEGATIVE); PROTEIN, URINE AUTO 1+ mg/dL (NEGATIVE); RBC, URINE AUTO 2 /HPF (0-3); SQUAMOUS EPITHELIAL CELL UR AU 0 /HPF (0-6); UROBILINOGEN, URINE AUTO 0.2 mg/dL (0.0-2.0); WBC, URINE AUTO 0 /HPF (0-3)
[2020-09-05 14:00] VITALS: BP 160/80
[2020-09-05 14:30] VITALS: BP_SYST 133; BP_SYST 141; BP_SYST 143; BP_DIAS 72; BP_DIAS 73
[2020-09-05] MEDS: MYCOPHENOLATE 180 MG PO SCH (20:16)
[2020-09-05] MEDS: predniSONE 5 MG TAB PO SCH (20:18)
[2020-09-05] MEDS: SIMVASTATIN 20 MG TAB PO SCH (20:18)
[2020-09-05] MEDS: LEVEMIR (INSULIN DETEMIR) 1 UNITS/0.01ML SC SCH (20:18)
--- NOTE | 2020-09-05 20:38 | CR ---
CONSULTATION DATE: 09/05/2020 REQUESTING PHYSICIAN: Deborah Nina MD CONSULTING PHYSICIAN: Tamara George MD REASON FOR CONSULTATION: Management of renal allograft immunosuppression in this patient who was admitted with syncope. CHIEF COMPLAINT: Patient was brought to the emergency room after an episode of syncope. 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 She follows up with Dr. Kailey Bowen as outpatient in nephrology clinic. She was at her daughter's home and she had two alcoholic drinks and she smoked marijuana after that. After that, she became dizzy and fell and hit her forehead. Patient had vomiting at [facility]. She was transferred to [facility] for further care. She was admitted under the hospitalist service last night. Nephrology service was called for further help in the management of this patient with renal allograft status. I saw and evaluated the patient today morning at the bedside. She reports that she is feeling better today as compared with yesterday. She is undergoing the workup of syncope at this time. PAST MEDICAL HISTORY: Past medical history of hypertension, gastroesophageal reflux disease, history of Clostridium (C) difficile in the past, renal allograft status, type 1 diabetic after pancreatic surgery. PAST SURGICAL HISTORY: Bilateral cataract surgery, status post cholecystectomy, renal transplant times two, latest one is on the left side, history of pancreatic resection, splenectomy in the past, rotator cuff surgery, and bilateral hip arthroplasty. ALLERGIES: Patient is allergic to HYDRALAZINE, NIFEDIPINE, TRIAZOLAM. FAMILY HISTORY: No significant family history of end-stage renal disease. SOCIAL HISTORY: Patient is an active smoker. She admits to drinking alcohol, last drink was before the admission, and she also admitted to smoking marijuana before she had syncope. REVIEW OF SYSTEMS: Constitutional: She denies any fevers or chills. Eyes: She denies any double vision or blurry vision. Ears, nose, and throat (ENT): She denies any dysphagia or odynophagia. Cardiovascular: She denies any chest pains or palpitations. Respiratory: She denies any shortness of breath. Gastrointestinal (GI): She denies any nausea or vomiting at this time. She did have episode of emesis at [facility]. Genitourinary: She denies any dysuria or hematuria. Musculoskeletal: She denies any muscle aches and pains. Skin: She denies any rashes or ulcers. Central nervous system (ORACLE PROGRAMMER ANALYST): She reports syncope. Endocrine: She reports insulin dependent diabetes and partial pancreatic dissection. Hematological/Oncological: She denies any easy bleeding or bruising. All other review of systems is negative. PHYSICAL EXAMINATION: General: Patient is awake, alert, oriented times three, laying in bed. Vital signs: Temperature is 98.2 degrees Fahrenheit, blood pressure 160/80, pulse is 70, respiratory rate of 18, saturating 98% on room air. Head and neck exam: Extraocular muscles intact. Pupils equally round and reactive to light. Mucous membranes are moist. Neck is supple. There is no jugular venous distension (JVD). Cardiovascular: S1, S2, regular rate. No edema of the bilateral lower extremities. Respiratory: Chest is clear to auscultation bilaterally. Bilateral equal air entry. No rales or rhonchi. Abdomen: Soft, positive bowel sounds. Midline laparotomy scar is noted. Left lower quadrant renal allograft is noted, no bruit or tenderness. Musculoskeletal: No clubbing or cyanosis. Pulses are 2+. ORACLE PROGRAMMER ANALYST: No focal deficit. Power is 5/5 in all extremities. Skin: No rashes or ulcers. LABORATORY REVIEW: CBC showed WBC of 11, hemoglobin 8.8, platelets are 208. Urinalysis done showed 1+ protein, negative leukocyte esterase, negative nitrites. BMP showed sodium 143, potassium 4.3, chloride 113, bicarbonate 23, BUN 31, creatinine is 0.8. Hemoglobin A1c is 6.7. Calcium is 8.6. BNP was 305. IMAGING: Carotid duplex is done which showed bilateral luminal narrowing of the internal carotid arteries less than 50%. No evidence of hemodynamically significant stenosis. CURRENT INPATIENT MEDICATIONS: Patient is on: - Tylenol as needed - Mylanta 30 mL as needed for dyspepsia - diltiazem 120 mg by mouth twice a day - Colace 100 mg by mouth twice a day - Lasix 20 mg by mouth daily - insulin Levemir 5 units subcutaneous nightly - insulin Lispro sliding scale - losartan 50 mg by mouth daily - metoprolol tartrate 25 mg by mouth twice a day - milk of magnesium as needed - eye vitamins - mycophenolate 540 mg by mouth twice a day - prednisone 5 mg by mouth daily - telmisartan 20 mg by mouth nightly - sodium bicarbonate 325 mg by mouth daily - vitamin D 50,000 units once a week - she gets belatacept infusions once a month, last dose was on 08/23/2020 ASSESSMENT AND PLAN: 1. Renal allograft status. Patient's renal function is close to baseline. At [place], her creatinine was 1.3, however it has improved to 0.8 today. Okay to continue current immunosuppression with mycophenolate and prednisone. Her last dose of belatacept infusion was on 08/23/2020. Next dose is due in September. She gets it as outpatient at [facility]. 2. Syncope. Most likely it is secondary to use of alcohol and marijuana. Patient was advised to avoid further use of alcohol and recreational drugs. Doppler of the carotids is negative. Echocardiogram with bubble study is pending. Okay to continue current diuretic and antihypertensive. 3. Hypertension. Blood pressure is controlled with current dose of metoprolol, losartan, Cardizem, and diuretic. 4. Diabetes mellitus type 1. Patient is insulin dependent. Current insulin dosage adjustment is as per medical team. 5. Chronic mild metabolic acidosis. Patient is on sodium bicarbonate 325 mg by mouth daily. Bicarbonate level is within the acceptable range. Thank you for involving me in the care of this patient. I shall be happy to follow the patient along with you tomorrow morning.
[2020-09-05] MEDS ORDERED: LEVEMIR (INSULIN DETEMIR) 1 UNITS/0.01ML SC SCH (21:00)
[2020-09-06 02:35] VITALS: BP 142/80
[2020-09-06 03:36] LABS: HEMATOCRIT 32.2 % (36.0-47.0); HEMOGLOBIN 10.2 g/dl (12.0-15.5); MEAN CORPUSCULAR HEMOGLOBIN 32.8 pg (27.0-33.0); MEAN CORPUSCULAR HGB CONC 31.7 g/dl (32.0-36.5); MEAN CORPUSCULAR VOLUME 103.5 fl (80.0-96.0); PLATELET COUNT, AUTOMATED 233 10^3/uL (150-450); RED BLOOD COUNT 3.11 10^6/uL (4.00-5.40); WHITE BLOOD COUNT 10.3 10^3/uL (4.0-10.0)
[2020-09-06 03:59] LABS: ALBUMIN 3.4 GM/DL (3.2-5.2); ALT/SGPT 20 U/L (12-78); BILIRUBIN,TOTAL 0.4 MG/DL (0.2-1.0); BLOOD UREA NITROGEN 27 MG/DL (7-18); CALCIUM LEVEL 9.4 MG/DL (8.8-10.2); CARBON DIOXIDE LEVEL 21 MEQ/L (21-32); CHLORIDE LEVEL 115 MEQ/L (98-107); CREATININE FOR GFR 0.88 MG/DL (0.55-1.30); GLOMERULAR FILTRATION RATE > 60.0 (>45); GLUCOSE, FASTING 76 MG/DL (70-100); MAGNESIUM LEVEL 2.1 MG/DL (1.8-2.4); POTASSIUM SERUM 4.7 MEQ/L (3.5-5.1); SODIUM LEVEL 143 MEQ/L (136-145)
[2020-09-06 05:59] VITALS: BP 153/72
[2020-09-06] MEDS: HumaLOG INSULIN (NovoLOG) PER UNIT SC SCH ×4 (05:59→16:34)
[2020-09-06] MEDS: DOCUSATE SODIUM 100MG CAPSULE PO SCH ×2 (09:00→20:51)
[2020-09-06] MEDS: FUROSEMIDE 20 MG TAB PO SCH (09:24)
[2020-09-06] MEDS: OCUVITE 1 TAB PO SCH (09:25)
[2020-09-06] MEDS: LACTOBACILLUS ACIDOPHILUS CAP (BACID) PO SCH (09:25)
[2020-09-06] MEDS: SODIUM BICARBONATE 325 MG TAB PO SCH (09:25)
[2020-09-06] MEDS: LOSARTAN 25 MG TAB PO SCH (09:25)
[2020-09-06] MEDS: MYCOPHENOLATE 180 MG PO SCH ×2 (09:26→20:50)
--- NOTE | 2020-09-06 11:40 | IPNPDOC ---
Text Note Date of Service The patient was seen on 09/06/20. NOTE SUBJECTIVE: -Had noted asymptomatic bradycardia overnight to mid 30s, also had 2 noted transient pauses, one was 2 sec, the other was 4 sec, asymptomatic -This morning she otherwise feels well and has no complaints PHYSICAL EXAMINATION: VITAL SIGNS: Please see below. GENERAL APPEARANCE: 65 y/o W in no acute distress HEENT: Resolving mild ecchymoses to left side of forehead. No swelling or lesion, EOMI, anicteric, MMM CARDIOVASCULAR: Regular rate, rhythm. 2/6 holosystolic murmur throughout precordium, loudest at RUSB and radiating to the carotids LUNGS: CTAB ABDOMEN: Normoactive sounds, soft, NTND EXTREMITIES: No peripheral edema. No overlying skin changes. Pulses intact. NEUROLOGICAL: Sensation intact. Normal gait, Speech clear. A+Ox3. No focal deficits PSYCHIATRIC: Aox3, Mood and affect appear appropriate LABORATORY DATA: Reviewed IMAGING: CXR, CT Head performed at [place] unremarkable. Carotid US: There is mild plaquing and narrowing in both carotid bulbs extending into the internal and external carotid arteries. Luminal narrowing is less than 50%. There is no evidence of hemodynamically significant stenosis of either internal carotid artery. Normal flow velocities are seen. The vertebral arteries demonstrate normal direction of flow. RIGHT LEFT Peak systolic velocity ICA 67.8 cm/s 106.5 cm/s End diastolic velocity ICA 20.2 cm/s 41.5 cm/s Peak systolic velocity CCA 88.7 cm/s 163.7cm/s Peak systolic velocity ECA 102.2 cm/s 87.6 cm/s ICA/CCA ratio 0.8 0.7 IMPRESSION: Bilateral luminal narrowing of the internal carotid arteries less than 50%. No evidence of hemodynamically significant stenosis. MICROBIOLOGY: Please see below. ASSESSMENT: 65 y/o W with a pmh of htn, gerd, cdiff, kidney transplant, and DM1 d/t pancreatic resection who presented to [facility] ED after a syncopal episode after a few alcoholic drinks and some marijuana use before becoming dizzy and passing out in her chair and transferred to [facility] for syncope w/u and management of patient's complicated chronic conditions. PLAN: Syncope: Most likely d/t concomitant alcohol and marijuana use vs. dual A/V devang blockade with duke and pauses noted on tele -TTE read pending -Carotid US showed no clinically significant stenosis that could be responsible for syncope -Telemetry -PT/OT -Orthostatic vital signs -DC metop and dilt 2. S/P renal transplant - renal function at baseline - Continue immunosuppressive mycophenalate, prednisone - nephrology consult 3. DM1 - sliding scale, hypoglycemic protocol - continue at home basal insulin 4. HTN - Discontinue metoprolol and dilt - Continue cozaar at 75 and add amlodipine 10mg daily 5. HLD - continue simvastatin DVT prophylaxis - Teds and SCDs. VS,Fishbone, I+O VS, Fishbone, I+O Laboratory Tests 09/06/20 03:24 Vital Signs Date Time Temp Pulse Resp B/P (MAP) Pulse Ox O2 Delivery O2 Flow Rate FiO2 09/06/20 09:25 180/82 09/06/20 09:00 58 09/06/20 05:59 98.6 16 97 Room Air I&O- Last 24 Hours up to 6 AM 09/06/20 06:00 Intake Total 1320 ml Output Total 450 ml Balance 870 ml BEAR WALKER MD September 06, 2020 11:40
[2020-09-06 14:00] VITALS: BP 168/76
[2020-09-06 15:03] VITALS: BP 160/64
--- NOTE | 2020-09-06 16:22 | IPN ---
PROGRESS NOTE DATE: 09/06/2020 SUBJECTIVE: The patient was seen and examined at the bedside today morning. I was told by the nursing staff that the patient was having some events from the tele-monitor. She was having bradycardia at night time and she had two pauses, one was 2 seconds and the other one was 4 seconds. The patient does admit that she snores when she sleeps at night, but she does not have any established diagnosis of her sleep apnea. She is also on 2 heart rate limiting medications including Cardizem and metoprolol. She denies any history of any atrial fibrillation or irregular heart rate, so metoprolol was stopped by the medical team today. Blood pressures are also slightly elevated today in the morning. OBJECTIVE: Vital signs: Temperature is 98.6 degrees Fahrenheit, blood pressure is 180/82, pulse is 58, respiratory rate of 16, saturating 97% on room air. Intake and output: Urine output recorded as 1250 ml yesterday. She has had 2 voids since overnight. Weight in the bed scale 52.2 kg yesterday. PHYSICAL EXAMINATION: The patient is awake, alert and oriented x3, lying in bed in no apparent distress. Head and neck examination: Extraocular muscles are intact. Pupils equally round and reactive to light. Mucous membranes are moist. Neck is supple. There is no jugular venous distention (JVD). Cardiovascular: S1, S2, bradycardia was noted. Irregular rate. No edema in the bilateral lower extremities. Respiratory: Chest is clear to auscultation bilaterally. Bilateral equal air entry. No rales or rhonchi. Abdomen: Soft. Positive bowel sounds. Nontender. No organomegaly. Musculoskeletal: No clubbing or cyanosis. Pulses are 2+. 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 Power is 5/5 in all extremities. LABORATORY REVIEW: Complete blood count (CBC) showed a WBC of 10.3, hemoglobin 10.2, platelets 233. Basic metabolic panel (BMP) showed sodium 143, potassium 4.7, chloride 115, bicarbonate 21, BUN 27, creatinine is 0.88. Albumin is 3.4. CURRENT INPATIENT MEDICATIONS: The patient's medications were all reviewed by myself. Her metoprolol has been stopped by the medical team. Losartan dose has been increased to 75 mg by mouth daily. She continues to be on diltiazem 120 mg by mouth twice a day. She is also on Lasix 20 mg by mouth daily. No other significant change in the medications today as compared with yesterday. ASSESSMENT AND PLAN: 1. Renal allograft status. The patient's renal allograft function is at baseline. It is okay to continue current immunosuppression with mycophenolate and prednisone. She gets belatacept infusion as an outpatient. 2. Syncope and bradycardia on the tele-monitor. The patient's metoprolol has been stopped; and if bradycardia persists, her Cardizem will also need to be stopped. Both of these medications slow down the heart rate. Electrolytes are within the acceptable range. 3. Hypertension. The patient's blood pressure is uncontrolled at this time. Metoprolol is being stopped because of bradycardia. Losartan dose has been increased. If her bradycardia does not improve, then Cardizem can be stopped and she can be started on amlodipine 5 mg by mouth daily. Okay to continue Lasix at this time. 4. Insulin dependent diabetes. Continue current insulin regimen. Glucose level was in acceptable range. 5. 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 Hemoglobin is better at 10.2 at this time. No need of PHONG administration.
[2020-09-06 17:00] VITALS: BP 152/68
--- NOTE | 2020-09-06 19:30 | ECGEPIP ---
[facility] Test Date: 2020-09-06 Pat Name: SHANNAN RAMIREZ Department: Room: [place] [address] Gender: Female Manager Balance: IVONNE : 1955 Requested By: ELSA Ross Order Number: [id number] Reading MD: Patel Manzanares Measurements Intervals [place] Rate: 34 P: 78 NM: 162 QRS: 78 QRSD: 88 T: 72 QT: 456 QTc: 342 Interpretive Statements Marked sinus bradycardia with premature atrial complexes Nonspecific ST and T wave abnormality Rate of two previous tracings showed sinus duke, but the rate for this tracing i is lower Electronically Signed on 09-06-2020 19:30:18 EDT by Patel Manzanares
[2020-09-06] MEDS ORDERED: LEVEMIR (INSULIN DETEMIR) 1 UNITS/0.01ML SC ONE (20:25)
[2020-09-06] MEDS: predniSONE 5 MG TAB PO SCH (20:51)
[2020-09-06] MEDS: SIMVASTATIN 20 MG TAB PO SCH (20:51)
[2020-09-06] MEDS: LEVEMIR (INSULIN DETEMIR) 1 UNITS/0.01ML SC SCH (20:52)
[2020-09-06] MEDS ORDERED: HumaLOG INSULIN (NovoLOG) PER UNIT SC SCH (21:00)
[2020-09-07 06:00] VITALS: BP 155/75
[2020-09-07] MEDS: HumaLOG INSULIN (NovoLOG) PER UNIT SC SCH ×2 (07:30→09:26)
--- NOTE | 2020-09-07 07:38 | ECHO ---
DATE OF PROCEDURE: 09/05/2020 Age: 65 Gender: Female Height: 160 cm Weight: 52 kg REFERRING PHYSICIAN: Viviana Dos Santos MD and Deborah Nina M.D. INDICATION: Syncope. MEASUREMENTS: IVS 0.9 cm LV 4.2 cm LVPW 1.0 cm LA 4.4 cm Aorta 3.2 cm RV 2.8 cm IVC 1.6 cm Mitral E wave velocity 111 cm/s Mitral A wave 81 cm/s E prime septal 9.6 cm/s E prime lateral 8.9 cm/s FINDINGS: This study is of good technical quality. The patient is in sinus rhythm. Left ventricle has normal size and normal systolic function, estimated LVEF 60% to 65%. Computer calculated LVEF of 64%. Right ventricle is also normal size and systolic function. Left atrium is at least mildly enlarged. Right atrium appears normal. Aortic valve is mildly sclerotic, but it is tricuspid and has normal mobility. Mitral and tricuspid valves appear normal. Pulmonic valve was not well seen. No pericardial effusion is noted. Inferior vena cava is of normal size and appropriately collapses with inspiration suggestive of normal central venous pressure. The aortic root is normal. The aortic arch and abdominal aorta were poorly visualized. Doppler interrogation of the aortic valve reveals no significant stenosis or insufficiency. There is trace mitral and trace tricuspid insufficiency. Calculated pulmonary artery pressure was close to 30 mmHg corresponding to borderline pulmonary hypertension. Mitral inflow pattern and tissue Doppler imaging of the mitral annulus revealed likely normal diastolic function. CONCLUSIONS: 1. Study is of acceptable technical quality, underlying sinus rhythm. 2. Normal LV size, systolic function. Probably normal diastolic function. 3. No significant valvular disease. 4. Normal central venous pressure and possibly borderline pulmonary hypertension. MTDD
[2020-09-07] MEDS: DOCUSATE SODIUM 100MG CAPSULE PO SCH ×2 (09:00→09:06)
[2020-09-07] MEDS: SODIUM BICARBONATE 325 MG TAB PO SCH (09:06)
[2020-09-07] MEDS: LACTOBACILLUS ACIDOPHILUS CAP (BACID) PO SCH (09:06)
[2020-09-07] MEDS: MYCOPHENOLATE 180 MG PO SCH (09:07)
[2020-09-07] MEDS: OCUVITE 1 TAB PO SCH (09:07)
[2020-09-07] MEDS: FUROSEMIDE 20 MG TAB PO SCH (09:08)
[2020-09-07 09:09] VITALS: BP 169/83
[2020-09-07] MEDS: LOSARTAN 25 MG TAB PO SCH (09:09)
[2020-09-07] MEDS ORDERED: LOSA50TA88 PO (10:06)
[2020-09-07] MEDS ORDERED: AMLO1TAB25 PO (10:06)
--- NOTE | 2020-09-07 10:29 | IPN ---
PROGRESS NOTE DATE: 09/07/2020 SUBJECTIVE: The patient was seen and examined at the bedside today morning. She is afebrile and hemodynamically stable. She was started on amlodipine yesterday. She only got one dose of Cardizem yesterday because of bradycardia. She otherwise feels better and feels like she is ready to go home. OBJECTIVE: VITAL SIGNS: Temperature is 97.7 degrees Fahrenheit, blood pressure 155/75, pulse 62, respiratory rate 20, saturating 98% on room air. INTAKE AND OUTPUT: Urine output is not recorded. She has had seven voids yesterday. Weight on the bed scale is not available. GENERAL: The patient is awake, alert, and oriented x3. Sitting up in the bed in no apparent distress. HEAD AND NECK: Extraocular muscles are intact. Pupils equally round and reactive to light. Mucous membranes are moist. Neck is supple. There is no JVD. CARDIOVASCULAR: S1, S2. Regular rate. No edema of the bilateral lower extremities. RESPIRATORY: Chest is clear to auscultation bilaterally. Bilaterally equal air entry. No rales or rhonchi. ABDOMEN: Soft with positive bowel sounds, nontender, and no organomegaly. MUSCULOSKELETAL: No clubbing or cyanosis. Pulses are 2+. 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 Power is 5/5 in all extremities. CURRENT INPATIENT MEDICATIONS: The patient's medications were all reviewed by myself. She was started on amlodipine 10 mg daily. I have stopped her Cardizem now. She continues to be on Lasix 20 mg p.o. daily. Losartan was increased to 75 mg p.o. daily yesterday. No other significant change in her medications today as compared to yesterday. ASSESSMENT AND PLAN: 1. Renal allograft status. Renal function is stable. Continue current immunosuppression with mycophenolate, prednisone, and belatacept. 2. Bradycardia and recent syncope. Metoprolol was stopped the day before yesterday. The Cardizem is being stopped today. Heart rate is better now. 3. Hypertension. Blood pressures are still high. She was started on amlodipine 10 mg daily. She is on Cardizem, which is a non-dihydropyridine calcium channel ingrid; however, combination of dihydropyridine and non-dihydropyridine is usually avoided, that is why I have stopped the Cardizem and patient is getting bradycardic as well. I am going to increase the losartan dose to 100 mg p.o. daily. 4. Insulin-dependent diabetes. Continue the insulin regimen. 5. Anemia and chronic kidney disease. Hemoglobin is more than 10. No need of PHONG administration at this time.
[2020-09-07] MEDS ORDERED: LOSA100T50 PO (11:09)
[2020-09-07 11:10] VITALS: BP 165/82
--- NOTE | 2020-09-07 11:59 | DS.PDOC ---
Discharge Summary General Date of Admission September 05, 2020 at 02:12 Date of Discharge 09/07/2020 Attending Physician: CARLOS MUKHERJEE MD Discharge Summary PROCEDURES PERFORMED DURING STAY: None. ADMITTING DIAGNOSES: Syncope S/P renal transplant Type 1 Diabetes mellitus HTN HLD DISCHARGE DIAGNOSES: Syncope 2/2 bradycardia S/P renal transplant Type 1 Diabetes mellitus HTN HLD COMPLICATIONS/CHIEF COMPLAINT: Syncope, Polysubstance Abuse. HISTORY OF PRESENT ILLNESS: 65 year old female who presented initially to [facility] ED for evaluation after a syncopal episode at home. Patient reported having two cans of beer along with smoking marijuana with her family. She then reported dizziness and woke up on the floor. According to family the patient fell forward in her chair and hit her head on the table. Family then brought the patient down to the floor and started chest compressions as they were concerned she was having a cardiac event. The patient reports waking up during this and feeling groggy after waking. She was brought by EMS to [facility] ED and transferred to [facility] for further evaluation after an unremarkable ED work up. HOSPITAL COURSE: Patient was admitted to [facility] and worked up for syncopal episode. She was found to have bradycardia on telemetry monitoring. Patient's home medications included both metoprolol and diltiazem for blood pressure control. Her metoprolol was discontinued and she was started on amlodipine for blood pressure control. She continued to be bradycardic overnight down to 40bpm. Her diltiazem was also discontinued at this time. She was titrated up on her home losartan to add to blood pressure control. She will stop taking both metoprolol and diltiazem at home. She was discharged on a higher dose of losartan as well as on amlodipine. She will follow up with her PCP as well as Nephrology regarding her blood pressure control. DISCHARGE MEDICATIONS: Please see below. ALLERGIES: Please see below. PHYSICAL EXAMINATION ON DISCHARGE: VITAL SIGNS: Please see below. GENERAL: Alert, comfortable, in no acute distress HEENT: Normocephalic, atraumatic, sclera anicteric, moist mucous membranes NECK: Supple, trachea midline, no lymphadenopathy CARDIOVASCULAR: Regular rate and rhythm, normal S1 and S2. 2/6 holosystolic murmur at the RUSB RESPIRATORY: Clear to auscultation bilaterally with equal air entry bilaterally. No wheezing, rhonchi, or rales. ABDOMEN: Soft, nontender, nondistended, bowel sounds present, no masses or hepatosplenomegaly appreciated EXTREMITIES: No cyanosis or edema. Pulses 2+/4 in bilateral upper and lower extremities NEUROLOGIC: Alert and oriented x3 to person, place and time. No focal deficits appreciated PSYCHIATRIC: Mood and affect appropriate LABORATORY DATA: Please see below. IMAGING: - Carotid artery U/S Bilateral luminal narrowing of the internal carotid arteries less than 50%. No evidence of hemodynamically significant stenosis. PROGNOSIS: Fair ACTIVITY: As tolerated. DIET: Consistent carb diet DISCHARGE PLAN: Outpatient follow up with nephrology DISPOSITION: Home DISCHARGE INSTRUCTIONS: 1. Follow up with your PCP in 7-10 days. 2. Follow up with Nephrology in 2 weeks. 3. Stop taking Diltiazem and Metoprolol. 4. Start taking Amlodipine and Losartan. 5. If your symptoms return please call your PCP or return to the ED for further evaluation. ITEMS TO FOLLOWUP ON ON OUTPATIENT: None DISCHARGE CONDITION: Stable. TIME SPENT ON DISCHARGE: 35 minutes. Vital Signs/I&Os Vital Signs Date Time Temp Pulse Resp B/P (MAP) Pulse Ox O2 Delivery O2 Flow Rate FiO2 09/07/20 11:10 69 165/82 (109) 09/07/20 06:00 97.7 20 98 Room Air I&O- Last 24 Hours up to 6 AM 09/07/20 06:00 Intake Total 840 ml Output Total 0 ml Balance 840 ml Laboratory Data Labs 24H Laboratory Tests 2 09/06/20 16:23: Bedside Glucose (Misc Panel) 228H 09/06/20 18:20: Bedside Glucose (Misc Panel) 41L 09/06/20 18:33: Bedside Glucose (Misc Panel) 61L 09/06/20 18:44: Bedside Glucose (Misc Panel) 88 09/06/20 20:00: Bedside Glucose (Misc Panel) 193H 09/07/20 06:25: Bedside Glucose (Misc Panel) 95 09/07/20 09:14: Bedside Glucose (Misc Panel) 193H FSBS Laboratory Tests Test 09/06/20 16:23 09/06/20 18:20 09/06/20 18:33 09/06/20 18:44 Range/Units Bedside Glucose (Misc Panel) 228 41 61 88 80-115 MG/DL Test 09/06/20 20:00 09/07/20 06:25 09/07/20 09:14 Range/Units Bedside Glucose (Misc Panel) 193 95 193 80-115 MG/DL Discharge Medications Scheduled Amlodipine Besylate (Amlodipine Besylate) 10 Mg Tablet, 10 MG PO DAILY B2/Vits A,C,E/Lut/Zeaxanth/Min (Icaps Tablet) 1 Each Tablet.er, 1 TAB PO DAILY, (Reported) Belatacept IV (Nulojix) 250 Mg Vial, 250 MG IV QMONTH, (Reported) BEGINNING OF MONTH Ergocalciferol (Vitamin D2) (Vitamin D2) 50,000 Units Cap, 50,000 UNITS PO QWEEK, (Reported) SUNDAY Furosemide (Lasix) 20 Mg Tablet, 20 MG PO DAILY, (Reported) Insulin Glargine,Hum.rec.anlog (Lantus Solostar) 100 Unit/Ml Inj, 14 UNITS SC QHS, (Reported) 12-14 UNITS Insulin Human Lispro (Humalog) 1 Units/0.01 Ml Inj, 1 DOSE SC AC, (Reported) L.acidoph/L.rhamn/B.bif/B.long (Probiotic Acidophilus Biobeads) 1 Cap Cap, 1 CAP PO DAILY, (Reported) Losartan Potassium (Losartan Potassium) 100 Mg Tablet, 100 MG PO DAILY Mycophenolate Sodium (Mycophenolic Acid) 180 Mg Tab, 540 MG PO BID, (Reported) Prednisone (Prednisone) 5 Mg Tab, 5 MG PO QHS, (Reported) Simvastatin (Simvastatin) 20 Mg Tab, 20 MG PO QHS, (Reported) Sodium Bicarbonate (Sodium Bicarbonate) 325 Mg Tablet, 325 MG PO DAILY, (Reported) Scheduled PRN Acetaminophen (Acetaminophen) 325 Mg Tablet, 650 MG PO Q4H PRN for PAIN / FEVER, (Reported) Allergies Coded Allergies: triazolam (Verified Allergy, Mild, RASH, 09/05/19) hydralazine (Verified Allergy, Unknown, 09/05/19) nifedipine (Verified Adverse Reaction, Mild, TACHYCARDIA, 09/05/19) GME ATTESTATION GME ATTESTATION My faculty preceptor for this patient encounter was physically present during the encounter and was fully available. All aspects of the patient interview, examination, medical decision making process, and medical care plan development were reviewed and approved by the faculty preceptor. The faculty preceptor is aware and concurs with the plan as stated in the body of this note and will attest to such by his/her cosignature. ATTENDING NOTE I, Carlos Mukherjee, have independently examined this patient and performed my own physical exam, as well as reviewed the documentation and edited where necessary. I have discussed in detail with the resident / student the findings and plan of treatment as documented by the resident / student and edited their note. I agree with their findings and treatment plan and have edited their documentation. I will continue to follow the patient during this hospital stay. Time spent on discharge 20 minutes CHEN BECKER D.O. September 07, 2020 11:59 CARLOS MUKHERJEE MD September 07, 2020 14:40
[2020-09-08] MEDS ORDERED: LOSARTAN 50MG TABLET PO SCH (09:00)
[2020-09-10] MEDS ORDERED: VITAMIN D 50,000 UNITS CAPSULE (ERGOCALCIFEROL 1.25MG) PO SCH (09:00)
== END 2020-09-07 12:34 | disposition home or self-care (01) ==
LOC: M MSPAV 02:12
PROVIDERS: ADMIT Internal Medicine; ATTEND Internal Medicine
DX: R55 Syncope and collapse (principal); R00.1 Bradycardia, unspecified; Z94.0 Kidney transplant status; E10.9 Type 1 diabetes mellitus without complications; E78.49 Other hyperlipidemia; F19.20 Other psychoactive substance dependence, uncomplicated; I10 Essential (primary) hypertension; K21.9 Gastro-esophageal reflux disease without esophagitis; F17.218 Nicotine dependence, cigarettes, with other nicotine-induced disorders; F12.10 Cannabis abuse, uncomplicated; Z79.899 Other long term (current) drug therapy; Z79.4 Long term (current) use of insulin; Z79.52 Long term (current) use of systemic steroids; Z88.8 Allergy status to other drugs, medicaments and biological substances
CPT/HCPCS: 36415; 80048; 80053; 81001; 83036; 83735; 83880; 84484; 85025; 85027; 93005; 93306; 93880; G0378; J7512

== ENCOUNTER 2020-09-21 13:00 | Outpatient (CLI) | payer MEDICARE ==
[~2020-09-21] VITALS: Ht 162.6 cm; Wt 52.2 kg
[~2020-09-21 13:00] MED LIST changes: +ACET1TAB55 PO; +AMLO1TAB25 PO; +BELATACEPT IV ONE; +ICAPTAB5 PO; +LOSA100T50 PO; +NS IV ONE; +VITA50005 PO
[2020-09-21 13:18] VITALS: BP 154/78
[2020-09-21 14:16] VITALS: BP 151/79
== END 2020-09-21 14:15 | disposition home or self-care (01) ==
LOC: M INFU 13:00
PROVIDERS: ATTEND Internal Medicine Nephrology
DX: Z94.0 Kidney transplant status (principal); Z88.8 Allergy status to other drugs, medicaments and biological substances
CPT/HCPCS: 96365; J0485

== ENCOUNTER 2020-10-21 13:12 | Outpatient (CLI) | payer MEDICARE ==
[~2020-10-21] VITALS: Ht 162.6 cm; Wt 52.2 kg
[~2020-10-21 13:12] MED LIST changes: +ERGO500029 PO; -VITA50005 PO
[2020-10-21 14:12] VITALS: BP 171/85
[2020-10-21 15:13] VITALS: BP 151/75
== END 2020-10-21 15:20 | disposition home or self-care (01) ==
LOC: M INFU 13:12
PROVIDERS: ATTEND Internal Medicine Nephrology
DX: Z94.0 Kidney transplant status (principal); Z88.8 Allergy status to other drugs, medicaments and biological substances
CPT/HCPCS: 96365; J0485

== ENCOUNTER 2020-11-22 11:59 | Outpatient (CLI) | payer MEDICARE ==
[~2020-11-22] VITALS: Ht 165.1 cm; Wt 51.8 kg
[~2020-11-22 11:59] MED LIST changes: -BELATACEPT IV ONE; +LOSA100T45 PO; -LOSA100T50 PO; +LOSA25TA13 PO; -LOSA25TA14 PO; +LOSA50TA28 PO; -LOSA50TA88 PO; -NS IV ONE
[2020-11-22] MEDS ORDERED: BELATACEPT IV ONE (12:00)
[2020-11-22] MEDS ORDERED: NS IV ONE (12:00)
[2020-11-22 12:22] VITALS: BP 157/77
[2020-11-22 13:30] VITALS: BP 168/81
== END 2020-11-22 13:30 | disposition home or self-care (01) ==
LOC: M INFU 11:59
PROVIDERS: ATTEND Internal Medicine Nephrology
DX: Z94.0 Kidney transplant status (principal); Z88.8 Allergy status to other drugs, medicaments and biological substances
CPT/HCPCS: 96365; J0485

== ENCOUNTER → 2020-12-01 | Outpatient (REF) | payer MEDICARE ==
[~2020-12-01] MED LIST changes: -LOSA100T45 PO; +LOSA100T50 PO; -LOSA25TA13 PO; +LOSA25TA14 PO; -LOSA50TA28 PO; +LOSA50TA88 PO
== END ==
LOC: M LAB REF 12:56
PROVIDERS: ATTEND Internal Medicine Nephrology
DX: E83.42 Hypomagnesemia (principal); Z94.0 Kidney transplant status

== ENCOUNTER 2020-12-22 12:37 | Outpatient (CLI) | payer MEDICARE ==
[~2020-12-22] VITALS: Ht 165.1 cm; Wt 50.0 kg
[~2020-12-22 12:37] MED LIST changes: +BELATACEPT IV ONE; +LOSA100T45 PO; -LOSA100T50 PO; +LOSA25TA13 PO; -LOSA25TA14 PO; +LOSA50TA28 PO; -LOSA50TA88 PO; +NS IV ONE
[2020-12-22 12:45] VITALS: BP 141/64
[2020-12-22 13:00] VITALS: BP 141/64
[2020-12-22] MEDS ORDERED: DILT60TA PO (13:25)
[2020-12-22 14:10] VITALS: BP 162/80
== END 2020-12-22 14:10 | disposition home or self-care (01) ==
LOC: M INFU 12:37
PROVIDERS: ATTEND Internal Medicine Nephrology
DX: Z94.0 Kidney transplant status (principal); Z88.8 Allergy status to other drugs, medicaments and biological substances
CPT/HCPCS: 96365; J0485

== ENCOUNTER 2021-01-21 12:25 | Outpatient (CLI) | payer MEDICARE ==
[~2021-01-21] VITALS: Ht 165.1 cm; Wt 50.0 kg
[~2021-01-21 12:25] MED LIST changes: -BELATACEPT IV ONE; +DILT60TA PO; -LOSA100T45 PO; +LOSA100T50 PO; -LOSA25TA13 PO; +LOSA25TA14 PO; -LOSA50TA28 PO; +LOSA50TA88 PO; -NS IV ONE
[2021-01-21] MEDS ORDERED: BELATACEPT IV ONE (12:30)
[2021-01-21] MEDS ORDERED: NS IV ONE (12:30)
[2021-01-21 12:44] VITALS: BP 131/69
[2021-01-21 14:31] VITALS: BP 163/80
== END 2021-01-21 14:30 | disposition home or self-care (01) ==
LOC: M INFU 12:25
PROVIDERS: ATTEND Internal Medicine Nephrology
DX: Z94.0 Kidney transplant status (principal); Z88.8 Allergy status to other drugs, medicaments and biological substances
CPT/HCPCS: 96365; J0485

== ENCOUNTER 2021-02-21 12:34 | Outpatient (CLI) | payer MEDICARE ==
[~2021-02-21] VITALS: Ht 165.1 cm; Wt 50.9 kg
[~2021-02-21 12:34] MED LIST changes: +BELATACEPT IV ONE; +NS IV ONE
[2021-02-21 12:51] VITALS: BP 170/85
[2021-02-21 14:05] VITALS: BP 151/77
== END 2021-02-21 14:10 | disposition home or self-care (01) ==
LOC: M INFU 12:34
PROVIDERS: ATTEND Internal Medicine Nephrology
DX: Z94.0 Kidney transplant status (principal); Z88.8 Allergy status to other drugs, medicaments and biological substances
CPT/HCPCS: 96365; J0485

== ENCOUNTER 2021-03-23 12:29 | Outpatient (CLI) | payer MEDICARE ==
[~2021-03-23] VITALS: Ht 165.1 cm; Wt 50.9 kg
[~2021-03-23 12:29] MED LIST changes: -BELATACEPT IV ONE; +LOSA100T45 PO; -LOSA100T50 PO; +LOSA25TA13 PO; -LOSA25TA14 PO; +LOSA50TA28 PO; -LOSA50TA88 PO; -NS IV ONE
[2021-03-23 12:30] VITALS: BP 151/73
[2021-03-23] MEDS ORDERED: BELATACEPT IV ONE (12:30)
[2021-03-23] MEDS ORDERED: NS IV ONE (12:30)
[2021-03-23 13:59] VITALS: BP 136/71
== END 2021-03-23 14:05 | disposition home or self-care (01) ==
LOC: M INFU 12:29
PROVIDERS: ATTEND Internal Medicine Nephrology
DX: Z94.0 Kidney transplant status (principal); Z88.8 Allergy status to other drugs, medicaments and biological substances
CPT/HCPCS: 96365; J0485

== ENCOUNTER → 2021-03-24 | Outpatient (REF) | payer MEDICARE | LOC: M LAB REF 17:18 | PROVIDERS: ATTEND Internal Medicine Nephrology | DX: E83.42 Hypomagnesemia (principal); Z94.0 Kidney transplant status ==

== ENCOUNTER 2021-04-25 12:56 | Outpatient (CLI) | payer MEDICARE ==
[2021-04-25 12:05] VITALS: BP 179/89
[~2021-04-25 12:56] MED LIST changes: +BELATACEPT IV ONE; -LOSA100T45 PO; +LOSA100T50 PO; -LOSA25TA13 PO; +LOSA25TA14 PO; -LOSA50TA28 PO; +LOSA50TA88 PO; +NS IV ONE
[2021-04-25 14:14] VITALS: BP 165/84
== END 2021-04-25 14:15 | disposition home or self-care (01) ==
LOC: M INFU 12:56
PROVIDERS: ATTEND Internal Medicine Nephrology
DX: Z94.0 Kidney transplant status (principal); Z88.8 Allergy status to other drugs, medicaments and biological substances
CPT/HCPCS: 96365; J0485

== ENCOUNTER 2021-05-24 12:22 | Outpatient (CLI) | payer MEDICARE ==
[~2021-05-24] VITALS: Ht 165.1 cm; Wt 50.9 kg
[~2021-05-24 12:22] MED LIST changes: -BELATACEPT IV ONE; +LOSA100T45 PO; -LOSA100T50 PO; +LOSA25TA13 PO; -LOSA25TA14 PO; +LOSA50TA28 PO; -LOSA50TA88 PO; -NS IV ONE
[2021-05-24] MEDS ORDERED: BELATACEPT IV ONE (12:30)
[2021-05-24] MEDS ORDERED: NS IV ONE (12:30)
[2021-05-24 12:44] VITALS: BP 178/82
[2021-05-24 12:50] VITALS: BP 178/82
[2021-05-24 13:42] VITALS: BP 167/77
== END 2021-05-24 14:30 | disposition home or self-care (01) ==
LOC: M INFU 12:22
PROVIDERS: ATTEND Internal Medicine Nephrology
DX: Z94.0 Kidney transplant status (principal); Z88.8 Allergy status to other drugs, medicaments and biological substances
CPT/HCPCS: 96365; J0485

== ENCOUNTER 2021-06-21 12:28 | Outpatient (CLI) | payer MEDICARE ==
[2021-06-21] MEDS ORDERED: BELATACEPT IV ONE (12:30)
[2021-06-21] MEDS ORDERED: NS IV ONE (12:30)
[2021-06-21 12:54] VITALS: BP 167/80
[2021-06-21 14:00] VITALS: BP 169/83
== END 2021-06-21 13:55 | disposition home or self-care (01) ==
LOC: M INFU 12:28
PROVIDERS: ATTEND Internal Medicine Nephrology
DX: Z94.0 Kidney transplant status (principal); Z88.8 Allergy status to other drugs, medicaments and biological substances
CPT/HCPCS: 96365; J0485

== ENCOUNTER 2021-07-22 12:13 | Outpatient (CLI) | payer MEDICARE ==
[~2021-07-22] VITALS: Ht 165.1 cm; Wt 52.6 kg
[2021-07-22 12:30] VITALS: BP 150/80
[2021-07-22] MEDS ORDERED: NS IV ONE (12:30)
[2021-07-22] MEDS ORDERED: BELATACEPT IV ONE (12:30)
[2021-07-22 13:45] VITALS: BP 152/88
== END 2021-07-22 13:45 | disposition home or self-care (01) ==
LOC: M INFU 12:13
PROVIDERS: ATTEND Internal Medicine Nephrology
DX: Z94.0 Kidney transplant status (principal); Z88.8 Allergy status to other drugs, medicaments and biological substances
CPT/HCPCS: 96365; J0485

== ENCOUNTER 2021-08-22 13:11 | Outpatient (CLI) | payer MEDICARE ==
[~2021-08-22] VITALS: Ht 157.5 cm; Wt 52.2 kg
[~2021-08-22 13:11] MED LIST changes: +BELATACEPT IV ONE; +NS IV ONE
[2021-08-22 13:15] VITALS: BP 173/86
[2021-08-22 14:45] VITALS: BP 160/81
== END 2021-08-22 14:45 | disposition home or self-care (01) ==
LOC: M INFU 13:11
PROVIDERS: ATTEND Internal Medicine Nephrology
DX: Z94.0 Kidney transplant status (principal); Z88.8 Allergy status to other drugs, medicaments and biological substances
CPT/HCPCS: 96365; J0485

== ENCOUNTER 2021-09-21 11:55 | Outpatient (CLI) | payer MEDICARE ==
[~2021-09-21 11:55] MED LIST changes: -BELATACEPT IV ONE; -NS IV ONE
[2021-09-21] MEDS ORDERED: BELATACEPT IV ONE (12:00)
[2021-09-21] MEDS ORDERED: NS IV ONE (12:00)
[2021-09-21 12:30] VITALS: BP 156/76
[2021-09-21 13:40] VITALS: BP 145/77
== END 2021-09-21 13:40 | disposition home or self-care (01) ==
LOC: M INFU 11:55
PROVIDERS: ATTEND Internal Medicine Nephrology
DX: Z94.0 Kidney transplant status (principal); Z88.8 Allergy status to other drugs, medicaments and biological substances
CPT/HCPCS: 96365; J0485

== ENCOUNTER 2021-10-21 12:30 | Outpatient (CLI) | payer MEDICARE ==
[~2021-10-21] VITALS: Ht 165.1 cm; Wt 52.5 kg
[~2021-10-21 12:30] MED LIST changes: +BELATACEPT IV ONE; +NS IV ONE
[2021-10-21 12:55] VITALS: BP 128/75
[2021-10-21 14:10] VITALS: BP 117/67
== END 2021-10-21 14:10 | disposition home or self-care (01) ==
LOC: M INFU 12:30
PROVIDERS: ATTEND Internal Medicine Nephrology
DX: Z94.0 Kidney transplant status (principal); Z88.8 Allergy status to other drugs, medicaments and biological substances
CPT/HCPCS: 96365; J0485

== ENCOUNTER 2021-11-21 12:20 | Outpatient (CLI) | payer MEDICARE, MEDICAID ==
[~2021-11-21] VITALS: Ht 165.1 cm; Wt 50.0 kg
[2021-11-21 12:20] VITALS: BP 155/76
[~2021-11-21 12:20] MED LIST changes: -BELATACEPT IV ONE; -NS IV ONE
[2021-11-21] MEDS ORDERED: BELATACEPT IV ONE (12:30)
[2021-11-21] MEDS ORDERED: NS IV ONE (12:30)
[2021-11-21 13:55] VITALS: BP 134/80
== END 2021-11-21 13:55 | disposition home or self-care (01) ==
LOC: M INFU 12:20
PROVIDERS: ATTEND Internal Medicine Nephrology
DX: Z94.0 Kidney transplant status (principal); Z88.8 Allergy status to other drugs, medicaments and biological substances
CPT/HCPCS: 96365; J0485

== ENCOUNTER 2021-12-22 12:30 | Outpatient (CLI) | payer MEDICARE, MEDICAID ==
[~2021-12-22] VITALS: Ht 165.1 cm; Wt 52.0 kg
[~2021-12-22 12:30] MED LIST changes: +BELATACEPT IV ONE; +NS IV ONE
[2021-12-22 12:40] VITALS: BP 160/76
== END 2021-12-22 13:40 | disposition home or self-care (01) ==
LOC: M INFU 12:30
PROVIDERS: ATTEND Internal Medicine Nephrology
DX: Z94.0 Kidney transplant status (principal); Z88.8 Allergy status to other drugs, medicaments and biological substances
CPT/HCPCS: 96365; J0485

== ENCOUNTER 2022-01-23 12:25 | Outpatient (CLI) | payer MEDICARE, MEDICAID ==
[~2022-01-23] VITALS: Ht 165.1 cm; Wt 48.6 kg
[2022-01-23 12:25] VITALS: BP 150/70
[~2022-01-23 12:25] MED LIST changes: -BELATACEPT IV ONE; -NS IV ONE
[2022-01-23] MEDS ORDERED: BELATACEPT IV ONE (12:30)
[2022-01-23] MEDS ORDERED: NS IV ONE (12:30)
== END 2022-01-23 13:50 | disposition home or self-care (01) ==
LOC: M INFU 12:25
PROVIDERS: ATTEND Internal Medicine Nephrology
DX: Z94.0 Kidney transplant status (principal); Z88.8 Allergy status to other drugs, medicaments and biological substances
CPT/HCPCS: 96365; J0485

== ENCOUNTER 2022-02-21 12:40 | Outpatient (CLI) | payer MEDICARE, MEDICAID ==
[~2022-02-21 12:40] MED LIST changes: +BELATACEPT IV ONE; +NS IV ONE
[2022-02-21 13:06] VITALS: BP 145/73
== END 2022-02-21 14:00 | disposition home or self-care (01) ==
LOC: M INFU 12:40
PROVIDERS: ATTEND Internal Medicine Nephrology
DX: Z94.0 Kidney transplant status (principal); Z88.8 Allergy status to other drugs, medicaments and biological substances
CPT/HCPCS: 96365; J0485

== ENCOUNTER 2022-03-23 12:25 | Outpatient (CLI) | payer MEDICARE, MEDICAID ==
[~2022-03-23] VITALS: Ht 165.1 cm; Wt 48.3 kg
[2022-03-23 12:25] VITALS: BP 137/71
== END 2022-03-23 14:05 | disposition home or self-care (01) ==
LOC: M INFU 12:25
PROVIDERS: ATTEND Internal Medicine Nephrology
DX: Z94.0 Kidney transplant status (principal); Z88.8 Allergy status to other drugs, medicaments and biological substances
CPT/HCPCS: 96365; J0485

== ENCOUNTER 2022-04-25 12:25 | Outpatient (CLI) | payer MEDICARE, MEDICAID ==
[~2022-04-25 12:25] MED LIST changes: -BELATACEPT IV ONE; -NS IV ONE
[2022-04-25] MEDS ORDERED: NS IV ONE (12:30)
[2022-04-25] MEDS ORDERED: BELATACEPT IV ONE (12:30)
[2022-04-25 12:35] VITALS: BP 180/85
[2022-04-25 13:40] VITALS: BP 167/80
== END 2022-04-25 13:40 | disposition home or self-care (01) ==
LOC: M INFU 12:25
PROVIDERS: ATTEND Internal Medicine Nephrology
DX: Z94.0 Kidney transplant status (principal); Z88.8 Allergy status to other drugs, medicaments and biological substances
CPT/HCPCS: 96365; J0485

== ENCOUNTER 2022-05-24 12:40 | Outpatient (CLI) | payer MEDICARE, MEDICAID ==
[~2022-05-24] VITALS: Ht 165.1 cm; Wt 50.0 kg
[2022-05-24 12:40] VITALS: BP 145/76
[~2022-05-24 12:40] MED LIST changes: +BELATACEPT IV ONE; +NS IV ONE
[2022-05-24 13:45] VITALS: BP 151/76
== END 2022-05-24 13:45 | disposition home or self-care (01) ==
LOC: M INFU 12:40
PROVIDERS: ATTEND Internal Medicine Nephrology
DX: Z94.0 Kidney transplant status (principal); Z88.8 Allergy status to other drugs, medicaments and biological substances
CPT/HCPCS: 96365; J0485

== ENCOUNTER 2022-06-21 14:45 | Outpatient (CLI) | payer MEDICARE, MEDICAID ==
[~2022-06-21] VITALS: Ht 167.6 cm; Wt 50.0 kg
[2022-06-21 14:45] VITALS: BP 159/79
[2022-06-21 16:20] VITALS: BP 149/75
== END 2022-06-21 16:25 | disposition home or self-care (01) ==
LOC: M INFU 14:45
PROVIDERS: ATTEND Internal Medicine Nephrology
DX: Z94.0 Kidney transplant status (principal); Z88.8 Allergy status to other drugs, medicaments and biological substances
CPT/HCPCS: 96365; J0485

== ENCOUNTER 2022-07-24 12:23 | Outpatient (CLI) | payer MEDICARE, MEDICAID ==
[~2022-07-24] VITALS: Ht 165.1 cm; Wt 52.5 kg
[~2022-07-24 12:23] MED LIST changes: -BELATACEPT IV ONE; -NS IV ONE
[2022-07-24 12:30] VITALS: BP 180/90
[2022-07-24] MEDS ORDERED: BELATACEPT IV ONE (12:30)
[2022-07-24] MEDS ORDERED: NS IV ONE (12:30)
[2022-07-24 13:54] VITALS: BP 183/86
== END 2022-07-24 13:55 | disposition home or self-care (01) ==
LOC: M INFU 12:23
PROVIDERS: ATTEND Internal Medicine Nephrology
DX: Z94.0 Kidney transplant status (principal); Z88.6 Allergy status to analgesic agent; Z88.8 Allergy status to other drugs, medicaments and biological substances
CPT/HCPCS: 96365; J0485

== ENCOUNTER 2022-08-21 12:00 | Outpatient (CLI) | payer MEDICARE, MEDICAID ==
[~2022-08-21] VITALS: Ht 165.1 cm; Wt 52.5 kg
[2022-08-21 12:00] VITALS: BP 180/84
[~2022-08-21 12:00] MED LIST changes: +BELATACEPT IV ONE; -DILT1CAP5 PO; +DILT240C41 PO; -LOSA100T45 PO; +LOSA100T46 PO; +NS IV ONE
[2022-08-21 13:29] VITALS: BP 160/84
== END 2022-08-21 13:10 | disposition home or self-care (01) ==
LOC: M INFU 12:00
PROVIDERS: ATTEND Internal Medicine Nephrology
DX: Z94.0 Kidney transplant status (principal); Z88.8 Allergy status to other drugs, medicaments and biological substances
CPT/HCPCS: 96365; J0485

== ENCOUNTER 2022-09-21 12:05 | Outpatient (CLI) | payer MEDICARE, MEDICAID ==
[~2022-09-21] VITALS: Ht 165.1 cm; Wt 52.5 kg
[2022-09-21 12:10] VITALS: BP 163/71
[2022-09-21 13:40] VITALS: BP 174/91
== END 2022-09-21 13:40 | disposition home or self-care (01) ==
LOC: M INFU 12:05
PROVIDERS: ATTEND Internal Medicine Nephrology
DX: Z94.0 Kidney transplant status (principal); Z88.8 Allergy status to other drugs, medicaments and biological substances
CPT/HCPCS: 96365; J0485

== ENCOUNTER 2022-10-25 13:00 | Outpatient (CLI) | payer MEDICARE, MEDICAID ==
[~2022-10-25] VITALS: Ht 167.6 cm; Wt 50.0 kg
[2022-10-25 13:00] VITALS: BP 161/88; O2SAT 99
== END 2022-10-25 14:35 ==
LOC: M INFU 13:00
PROVIDERS: ATTEND Internal Medicine Nephrology
DX: Z94.0 Kidney transplant status (principal); Z88.8 Allergy status to other drugs, medicaments and biological substances
CPT/HCPCS: 96365; J0485

== ENCOUNTER 2022-11-24 13:29 | Outpatient (CLI) | payer MEDICARE, MEDICAID ==
[~2022-11-24] VITALS: Ht 167.6 cm; Wt 49.0 kg
[~2022-11-24 13:29] MED LIST changes: -BELATACEPT IV ONE; -NS IV ONE
[2022-11-24 13:35] VITALS: BP 128/67; O2SAT 96
[2022-11-24] MEDS ORDERED: BELATACEPT IV ONE (15:00)
[2022-11-24] MEDS ORDERED: NS IV ONE (15:00)
[2022-11-24 16:00] VITALS: BP 138/68; O2SAT 97
== END 2022-11-24 16:00 | disposition home or self-care (01) ==
LOC: M INFU 13:29
PROVIDERS: ATTEND Internal Medicine Nephrology
DX: Z94.0 Kidney transplant status (principal); Z88.8 Allergy status to other drugs, medicaments and biological substances
CPT/HCPCS: 96365; J0485

== ENCOUNTER 2022-12-22 14:00 | Outpatient (CLI) | payer MEDICARE, MEDICAID ==
[~2022-12-22] VITALS: Ht 165.1 cm; Wt 49.4 kg
[2022-12-22] MEDS ORDERED: NS IV ONE (14:20)
[2022-12-22] MEDS ORDERED: BELATACEPT IV ONE (14:20)
[2022-12-22 14:25] VITALS: BP 162/76; O2SAT 98
[2022-12-22 15:15] VITALS: BP 119/71; O2SAT 97
== END 2022-12-22 15:15 | disposition home or self-care (01) ==
LOC: M INFU 14:00
PROVIDERS: ATTEND Internal Medicine Nephrology
DX: Z94.0 Kidney transplant status (principal); Z88.2 Allergy status to sulfonamides; Z88.8 Allergy status to other drugs, medicaments and biological substances
CPT/HCPCS: 96365; J0485

== ENCOUNTER 2023-02-16 11:02 | Outpatient (CLI) | payer MEDICARE, MEDICAID ==
[~2023-02-16] VITALS: Ht 163.8 cm; Wt 50.0 kg
[2023-02-16 11:00] VITALS: BP 120/78; O2SAT 100
[2023-02-16] MEDS ORDERED: NS IV ONE (11:25)
[2023-02-16] MEDS ORDERED: BELATACEPT IV ONE (11:25)
[2023-02-16 12:25] VITALS: BP 126/93; O2SAT 99
== END 2023-02-16 12:30 ==
LOC: M INFU 11:02
PROVIDERS: ATTEND Internal Medicine Nephrology
DX: Z94.0 Kidney transplant status (principal); Z88.2 Allergy status to sulfonamides; Z88.8 Allergy status to other drugs, medicaments and biological substances
CPT/HCPCS: 96365; J0485

== ENCOUNTER 2023-03-21 14:35 | Outpatient (CLI) | payer MEDICARE, MEDICAID ==
[~2023-03-21] VITALS: Ht 165.1 cm; Wt 50.1 kg
[2023-03-21 14:35] VITALS: BP 185/91; O2SAT 97
[~2023-03-21 14:35] MED LIST changes: +BELATACEPT IV ONE; +NS IV ONE
[2023-03-21 16:25] VITALS: BP 171/82; O2SAT 100
== END 2023-03-21 16:25 | disposition home or self-care (01) ==
LOC: M INFU 14:35
PROVIDERS: ATTEND Internal Medicine Nephrology
DX: Z94.0 Kidney transplant status (principal); Z88.8 Allergy status to other drugs, medicaments and biological substances
CPT/HCPCS: 96365; J0485

== ENCOUNTER 2023-05-16 14:30 | Outpatient (CLI) | payer MEDICARE, MEDICAID ==
[~2023-05-16] VITALS: Ht 165.1 cm; Wt 50.0 kg
[2023-05-16 14:35] VITALS: BP 168/78; O2SAT 98
[2023-05-16 16:15] VITALS: BP 183/85; O2SAT 100
== END 2023-05-16 16:15 ==
LOC: M INFU 14:30
PROVIDERS: ATTEND Internal Medicine Nephrology
DX: Z94.0 Kidney transplant status (principal); Z88.8 Allergy status to other drugs, medicaments and biological substances
CPT/HCPCS: 96365; J0485

== ENCOUNTER 2023-06-13 14:14 | Outpatient (CLI) | payer MEDICARE, MEDICAID ==
[~2023-06-13] VITALS: Ht 165.1 cm; Wt 45.9 kg
[~2023-06-13 14:14] MED LIST changes: -BELATACEPT IV ONE; -NS IV ONE
[2023-06-13 14:39] VITALS: BP 171/84; O2SAT 100
[2023-06-13] MEDS: BELATACEPT IV ONE (14:48)
[2023-06-13] MEDS: NS IV ONE (14:48)
[2023-06-13 15:20] VITALS: BP 166/80; O2SAT 100
== END 2023-06-13 15:20 ==
LOC: M INFU 14:14
PROVIDERS: ATTEND Nurse Practitioner Family
DX: Z94.0 Kidney transplant status (principal); Z88.8 Allergy status to other drugs, medicaments and biological substances
CPT/HCPCS: 96365; J0485

== ENCOUNTER 2023-07-11 14:20 | Outpatient (CLI) | payer MEDICARE, MEDICAID ==
[~2023-07-11] VITALS: Ht 165.1 cm; Wt 49.5 kg
[2023-07-11 14:20] VITALS: BP 182/87; O2SAT 97
[2023-07-11] MEDS: BELATACEPT IV ONE (15:45)
[2023-07-11] MEDS: NS IV ONE (15:45)
[2023-07-11 16:29] VITALS: BP 172/80; O2SAT 100
== END 2023-07-11 16:30 ==
LOC: M INFU 14:20
PROVIDERS: ATTEND Nurse Practitioner Family
DX: Z94.0 Kidney transplant status (principal); Z88.8 Allergy status to other drugs, medicaments and biological substances
CPT/HCPCS: 96365; J0485

== ENCOUNTER 2023-07-31 10:55 | Inpatient (IN) | payer MEDICARE, MEDICAID ==
[~2023-07-31] VITALS: Ht 165.1 cm; Wt 48.6 kg
[2023-07-31 11:52] LABS: BASO # 0.1 10^3/uL (0.0-0.2); BASO % 0.2 % (0.0-1.0); EOS # 0.1 10^3/uL (0.0-0.5); EOS % 0.3 % (0.0-3.0); HEMATOCRIT 27.9 % (36.0-47.0); HEMOGLOBIN 9.3 g/dl (12.0-15.5); LYMPH % 4.4 % (24.0-44.0); MEAN CORPUSCULAR HEMOGLOBIN 33.3 pg (27.0-33.0); MEAN CORPUSCULAR HGB CONC 33.3 g/dl (32.0-36.5); MONO # 1.1 10^3/uL (0.0-0.8); MONO % 4.7 % (2.0-8.0); NEUTROPHILS % 88.9 % (36.0-66.0); PLATELET COUNT, AUTOMATED 217 10^3/uL (150-450); RED BLOOD COUNT 2.79 10^6/uL (4.00-5.40); WHITE BLOOD COUNT 22.4 10^3/uL (4.0-10.0)
[2023-07-31] MEDS: ACETAMINOPHEN 325 MG TAB PO ONE (12:24)
[2023-07-31] MEDS: NS 500 ML IV ONE (12:25)
[2023-07-31 12:29] LABS: BILIRUBIN,DIRECT 0.2 MG/DL (<0.4); BILIRUBIN,TOTAL 0.8 MG/DL (0.3-1.2); TOTAL PROTEIN 5.2 G/DL (5.7-8.2)
[2023-07-31 13:24] LABS: CALCIUM LEVEL 8.6 MG/DL (8.3-10.6); CREATININE FOR GFR 1.71 MG/DL (0.55-1.30); GLOMERULAR FILTRATION RATE 31.8 (>45); POTASSIUM SERUM 4.8 MMOL/L (3.5-5.1)
[2023-07-31] MEDS: FIDAXOMICIN 200 MG TAB (DIFICID) PO STA (14:21)
[2023-07-31] MEDS: NS 1,000 ML IV SCH (14:21)
[2023-07-31] MEDS ORDERED: FURO40TA2 PO (14:46)
[2023-07-31] MEDS ORDERED: LOSA100T46 PO (14:46)
[2023-07-31] MEDS ORDERED: PROBCAP14 PO (14:46)
[2023-07-31] MEDS ORDERED: ACYC1TAB PO (14:50)
[2023-07-31] MEDS ORDERED: HOME MED LIST COMPLETE! XX SCH (14:50)
[2023-07-31] MEDS ORDERED: ACETAMINOPHEN TAB 650MG DOSE (2X325MG) PO PRN (15:20)
[2023-07-31] MEDS: INSULIN LISPRO (NovoLOG) PER UNIT SC SCH (17:30)
[2023-07-31] MEDS ORDERED: GLUCOSE 4GM CHEW TABLET PO PRN (17:45)
[2023-07-31] MEDS ORDERED: GLUCAGON INJ 1MG VIAL SC PRN (17:45)
[2023-07-31] MEDS ORDERED: DEXTROSE 50% 50ML SYRINGE IV PRN (17:45)
[2023-07-31] MEDS: LEVEMIR (INSULIN DETEMIR) 1 UNITS/0.01ML SC SCH (21:00)
[2023-07-31] MEDS: dilTIAZem 60 MG TAB PO SCH (21:16)
[2023-07-31] MEDS: predniSONE 5 MG TAB PO SCH (21:16)
[2023-07-31 22:40] VITALS: BP 137/66; TEMP 98.9; O2SAT 100
[2023-07-31] MEDS: FIDAXOMICIN 200 MG TAB (DIFICID) PO SCH (23:50)
[2023-08-01 05:04] VITALS: BP 131/66; TEMP 98.7; O2SAT 98
[2023-08-01 06:30] LABS: BASO # 0.1 10^3/uL (0.0-0.2); BASO % 0.3 % (0.0-1.0); EOS # 0.1 10^3/uL (0.0-0.5); EOS % 0.3 % (0.0-3.0); HEMATOCRIT 25.2 % (36.0-47.0); HEMOGLOBIN 8.4 g/dl (12.0-15.5); LYMPH % 5.2 % (24.0-44.0); MEAN CORPUSCULAR HEMOGLOBIN 33.3 pg (27.0-33.0); MEAN CORPUSCULAR HGB CONC 33.3 g/dl (32.0-36.5); MONO # 0.8 10^3/uL (0.0-0.8); MONO % 4.6 % (2.0-8.0); NEUTROPHILS # 16.1 10^3/uL (1.5-8.5); NEUTROPHILS % 88.9 % (36.0-66.0); PLATELET COUNT, AUTOMATED 204 10^3/uL (150-450); RED BLOOD COUNT 2.52 10^6/uL (4.00-5.40); WHITE BLOOD COUNT 18.2 10^3/uL (4.0-10.0)
[2023-08-01 06:54] LABS: CALCIUM LEVEL 8.5 MG/DL (8.3-10.6); CREATININE FOR GFR 1.4 MG/DL (0.55-1.30); GLOMERULAR FILTRATION RATE 40.1 (>45); POTASSIUM SERUM 3.9 MMOL/L (3.5-5.1)
[2023-08-01] MEDS: NS 500 ML IV ONE (08:29)
[2023-08-01 08:34] VITALS: BP 130/67
[2023-08-01] MEDS: SODIUM BICARBONATE 325 MG TAB PO SCH (08:37)
[2023-08-01] MEDS: ACYCLOVIR 200 MG CAPSULE PO SCH (08:38)
[2023-08-01 09:42] LABS: PERCENT SATURATION 6.9 % (13.2-45.0)
[2023-08-01] MEDS: MYCOPHENOLATE 180 MG PO SCH (11:39)
[2023-08-01 14:00] VITALS: BP 146/72; TEMP 97.6; O2SAT 99
[2023-08-01] MEDS ORDERED: FIDA200TA PO (16:53)
[2023-08-01 21:00] VITALS: BP 163/87; TEMP 97.5; O2SAT 99
[2023-08-02 05:10] VITALS: BP 132/65; TEMP 97.8; O2SAT 98
[2023-08-02 06:06] LABS: BASO # 0.1 10^3/uL (0.0-0.2); BASO % 0.5 % (0.0-1.0); EOS # 0.1 10^3/uL (0.0-0.5); EOS % 0.9 % (0.0-3.0); HEMOGLOBIN 9.2 g/dl (12.0-15.5); LYMPH % 9.9 % (24.0-44.0); MEAN CORPUSCULAR HEMOGLOBIN 32.7 pg (27.0-33.0); MEAN CORPUSCULAR HGB CONC 32.9 g/dl (32.0-36.5); MEAN CORPUSCULAR VOLUME 99.6 fl (80.0-96.0); MONO # 0.6 10^3/uL (0.0-0.8); MONO % 5.7 % (2.0-8.0); NEUTROPHILS # 8.2 10^3/uL (1.5-8.5); NEUTROPHILS % 82.5 % (36.0-66.0); PLATELET COUNT, AUTOMATED 227 10^3/uL (150-450); RED BLOOD COUNT 2.81 10^6/uL (4.00-5.40); WHITE BLOOD COUNT 9.9 10^3/uL (4.0-10.0)
[2023-08-02 06:34] LABS: CALCIUM LEVEL 8.7 MG/DL (8.3-10.6); CREATININE FOR GFR 1.17 MG/DL (0.55-1.30); GLOMERULAR FILTRATION RATE 49.3 (>45); POTASSIUM SERUM 4.5 MMOL/L (3.5-5.1)
[2023-08-02] MEDS: FERRIC CARBOXYMALTOSE INJ 750 MG, VIAL MATE ADAPTER 1 EACH in NS 250 ML IV ONE (07:06)
[2023-08-02 08:37] VITALS: TEMP 97.6; O2SAT 98
[2023-08-02 14:00] VITALS: BP 152/74; TEMP 98.2; O2SAT 99
[2023-08-02 20:00] VITALS: BP 155/76; TEMP 98.4; O2SAT 97
[2023-08-03 06:01] LABS: BASO % 0.6 % (0.0-1.0); EOS # 0.1 10^3/uL (0.0-0.5); HEMATOCRIT 26.1 % (36.0-47.0); HEMOGLOBIN 8.7 g/dl (12.0-15.5); LYMPH # 1.1 10^3/uL (1.5-5.0); LYMPH % 16.8 % (24.0-44.0); MEAN CORPUSCULAR HEMOGLOBIN 33.5 pg (27.0-33.0); MEAN CORPUSCULAR HGB CONC 33.3 g/dl (32.0-36.5); MEAN CORPUSCULAR VOLUME 100.4 fl (80.0-96.0); MONO # 0.5 10^3/uL (0.0-0.8); NEUTROPHILS # 4.9 10^3/uL (1.5-8.5); PLATELET COUNT, AUTOMATED 228 10^3/uL (150-450); WHITE BLOOD COUNT 6.7 10^3/uL (4.0-10.0)
[2023-08-03 06:10] VITALS: BP 143/74; TEMP 97.7; O2SAT 98
[2023-08-03 06:34] LABS: CALCIUM LEVEL 8.9 MG/DL (8.3-10.6); CREATININE FOR GFR 1.28 MG/DL (0.55-1.30); GLOMERULAR FILTRATION RATE 44.4 (>45); POTASSIUM SERUM 4.9 MMOL/L (3.5-5.1)
[2023-08-03 07:53] VITALS: BP 167/85
== END 2023-08-03 14:14 | disposition home or self-care (01) | DRG 872 ==
LOC: M ED 10:55 → EDBD 10:55 → M ED INP 15:18 → M MSPAV 22:40
PROVIDERS: ADMIT Internal Medicine Nephrology; ATTEND Internal Medicine Nephrology
DX: A41.9 Sepsis, unspecified organism (principal); A04.71 Enterocolitis due to Clostridium difficile, recurrent; Z94.0 Kidney transplant status; N17.9 Acute kidney failure, unspecified; I15.0 Renovascular hypertension; E11.9 Type 2 diabetes mellitus without complications; D63.1 Anemia in chronic kidney disease; E86.0 Dehydration; R53.1 Weakness; F17.200 Nicotine dependence, unspecified, uncomplicated; N18.30 Chronic kidney disease, stage 3 unspecified; Z96.643 Presence of artificial hip joint, bilateral; Z98.41 Cataract extraction status, right eye; Z98.42 Cataract extraction status, left eye; Z97.8 Presence of other specified devices; Z79.4 Long term (current) use of insulin; Z90.81 Acquired absence of spleen; Z90.410 Acquired total absence of pancreas; Z88.8 Allergy status to other drugs, medicaments and biological substances; Z79.899 Other long term (current) drug therapy; Z87.442 Personal history of urinary calculi; Z85.828 Personal history of other malignant neoplasm of skin

== ENCOUNTER → 2023-08-03 | Outpatient (CLI) | payer MEDICARE, MEDICAID ==
[~2023-08-03] VITALS: Ht 165.1 cm; Wt 48.6 kg
[~2023-08-03] MED LIST changes: +ACYC1TAB PO; +FIDA200TA PO; +FURO40TA2 PO; +PROBCAP14 PO
[2023-08-03 14:30] VITALS: BP 169/81; O2SAT 100
[2023-08-03] MEDS: BEZLOTOXUMAB 500 MG in NS 100 ML IV ONE (14:45)
[2023-08-03 15:49] VITALS: BP 160/80; O2SAT 99
== END ==
LOC: M INFU 14:21
PROVIDERS: ATTEND Internal Medicine Nephrology
DX: A04.71 Enterocolitis due to Clostridium difficile, recurrent (principal); Z88.8 Allergy status to other drugs, medicaments and biological substances
CPT/HCPCS: 96365; J0565

== ENCOUNTER 2023-08-08 13:05 | Outpatient (CLI) | payer MEDICARE, MEDICAID ==
[~2023-08-08] VITALS: Ht 165.1 cm; Wt 48.6 kg
[2023-08-08 13:10] VITALS: BP 142/73; O2SAT 100
[2023-08-08] MEDS: BELATACEPT IV ONE (13:39)
[2023-08-08] MEDS: NS IV ONE (13:39)
[2023-08-08 14:15] VITALS: BP 159/76; O2SAT 100
== END 2023-08-08 14:20 | disposition home or self-care (01) ==
LOC: M INFU 13:05
PROVIDERS: ATTEND Nurse Practitioner Family
DX: Z94.0 Kidney transplant status (principal); Z88.8 Allergy status to other drugs, medicaments and biological substances
CPT/HCPCS: 96365; J0485

== ENCOUNTER → 2023-08-29 | Outpatient (REF) | payer MEDICARE, MEDICAID ==
[2023-08-29 19:14] LABS: PERCENT SATURATION 32.4 % (13.2-45.0)
== END ==
LOC: M LAB REF 17:24
PROVIDERS: ATTEND Internal Medicine Nephrology
DX: D50.9 Iron deficiency anemia, unspecified (principal)

== ENCOUNTER 2023-09-05 13:59 | Outpatient (CLI) | payer MEDICARE, MEDICAID ==
[~2023-09-05] VITALS: Ht 165.1 cm; Wt 48.6 kg
[2023-09-05 14:15] VITALS: BP 176/86; O2SAT 100
[2023-09-05] MEDS: BELATACEPT IV ONE (14:46)
[2023-09-05] MEDS: NS IV ONE (14:46)
[2023-09-05 15:29] VITALS: BP 171/81; O2SAT 100
== END 2023-09-05 15:30 | disposition home or self-care (01) ==
LOC: M INFU 13:59
PROVIDERS: ATTEND Nurse Practitioner Family
DX: Z94.0 Kidney transplant status (principal); Z88.8 Allergy status to other drugs, medicaments and biological substances
CPT/HCPCS: 96365; J0485

== ENCOUNTER 2023-10-03 13:59 | Outpatient (CLI) | payer MEDICARE, MEDICAID ==
[~2023-10-03] VITALS: Ht 165.1 cm; Wt 48.6 kg
[2023-10-03 14:00] VITALS: BP 158/72; O2SAT 98
[2023-10-03] MEDS: NS IV ONE (14:37)
[2023-10-03] MEDS: BELATACEPT IV ONE (14:37)
== END 2023-10-03 15:20 ==
LOC: M INFU 13:59
PROVIDERS: ATTEND Nurse Practitioner Family
DX: Z94.0 Kidney transplant status (principal); Z88.8 Allergy status to other drugs, medicaments and biological substances
CPT/HCPCS: 96365; J0485

== ENCOUNTER 2023-10-31 14:05 | Outpatient (CLI) | payer MEDICARE, MEDICAID ==
[~2023-10-31] VITALS: Ht 154.9 cm; Wt 49.0 kg
[2023-10-31 14:00] VITALS: BP 149/67; O2SAT 100
[2023-10-31] MEDS: NS IV ONE (14:41)
[2023-10-31] MEDS: BELATACEPT IV ONE (14:41)
[2023-10-31 15:15] VITALS: BP 168/81; O2SAT 99
== END 2023-10-31 15:20 ==
LOC: M INFU 14:05
PROVIDERS: ATTEND Nurse Practitioner Family
DX: Z94.0 Kidney transplant status (principal); Z88.8 Allergy status to other drugs, medicaments and biological substances
CPT/HCPCS: 96365; J0485

== ENCOUNTER 2023-11-29 14:04 | Outpatient (CLI) | payer MEDICARE, MEDICAID ==
[~2023-11-29] VITALS: Ht 165.1 cm; Wt 49.5 kg
[2023-11-29 14:00] VITALS: BP 159/74; O2SAT 100
[2023-11-29] MEDS: NS IV ONE (15:11)
[2023-11-29] MEDS: BELATACEPT IV ONE (15:11)
[2023-11-29 15:45] VITALS: BP 166/82; O2SAT 100
== END 2023-11-29 15:53 ==
LOC: M INFU 14:04
PROVIDERS: ATTEND Nurse Practitioner Family
DX: Z94.0 Kidney transplant status (principal); Z88.8 Allergy status to other drugs, medicaments and biological substances
CPT/HCPCS: 96365; J0485

== ENCOUNTER 2023-12-27 13:57 | Outpatient (CLI) | payer MEDICARE, MEDICAID ==
[~2023-12-27] VITALS: Ht 165.1 cm; Wt 48.7 kg
[2023-12-27 14:05] VITALS: BP 154/70; O2SAT 99
[2023-12-27] MEDS: NS IV ONE (14:29)
[2023-12-27] MEDS: BELATACEPT IV ONE (14:29)
[2023-12-27 15:10] VITALS: BP 150/73; O2SAT 100
== END 2023-12-27 15:10 ==
LOC: M INFU 13:57
PROVIDERS: ATTEND Nurse Practitioner Family
DX: Z94.0 Kidney transplant status (principal); Z88.8 Allergy status to other drugs, medicaments and biological substances
CPT/HCPCS: 96365; J0485

== ENCOUNTER 2024-01-25 11:37 | Outpatient (CLI) | payer MEDICARE, MEDICAID ==
[~2024-01-25] VITALS: Ht 165.1 cm; Wt 48.4 kg
[2024-01-25 11:40] VITALS: O2SAT 96
[2024-01-25 12:12] VITALS: BP 140/68
[2024-01-25] MEDS: BELATACEPT IV ONE (12:24)
[2024-01-25] MEDS: NS IV ONE (12:24)
[2024-01-25 13:01] VITALS: BP 159/70; O2SAT 96
== END 2024-01-25 13:00 ==
LOC: M INFU 11:37
PROVIDERS: ATTEND Nurse Practitioner Family
DX: Z94.0 Kidney transplant status (principal); Z88.8 Allergy status to other drugs, medicaments and biological substances
CPT/HCPCS: 96365; J0485

== ENCOUNTER 2024-01-29 16:25 | Emergency (ER) | payer MEDICARE, MEDICAID ==
[~2024-01-29] VITALS: Ht 165.1 cm; Wt 47.9 kg
[2024-01-29 16:30] VITALS: BP 175/84; TEMP 97.7; O2SAT 98
[2024-01-29 17:54] LABS: BASO % 0.6 % (0.0-1.0); EOS % 0.4 % (0.0-3.0); HEMATOCRIT 33.1 % (36.0-47.0); HEMOGLOBIN 10.7 g/dl (12.0-15.5); LYMPH # 2.3 10^3/uL (1.5-5.0); LYMPH % 33.3 % (24.0-44.0); MEAN CORPUSCULAR HEMOGLOBIN 32.8 pg (27.0-33.0); MEAN CORPUSCULAR HGB CONC 32.3 g/dl (32.0-36.5); MEAN CORPUSCULAR VOLUME 101.5 fl (80.0-96.0); MONO % 14.2 % (2.0-8.0); NEUTROPHILS # 3.5 10^3/uL (1.5-8.5); NEUTROPHILS % 50.5 % (36.0-66.0); PLATELET COUNT, AUTOMATED 199 10^3/uL (150-450); RED BLOOD COUNT 3.26 10^6/uL (4.00-5.40)
[2024-01-29 18:19] LABS: CALCIUM LEVEL 9.1 MG/DL (8.3-10.6); CREATININE FOR GFR 1.81 MG/DL (0.55-1.30); GLOMERULAR FILTRATION RATE 29.7 (>45); POTASSIUM SERUM 4.5 MMOL/L (3.5-5.1)
[2024-01-29 18:27] LABS: PROCALCITONIN 0.16 ng/ml
[2024-01-29] MEDS ORDERED: NIRM1TAB13 PO (19:28)
[2024-01-29] MEDS ORDERED: PRED10TA2 PO (19:28)
[2024-01-29] MEDS: predniSONE 20 MG TAB PO ONE (19:30)
== END 2024-01-29 19:48 | disposition home or self-care (01) ==
LOC: M ED 16:25
DX: U07.1 COVID-19 (principal); J18.9 Pneumonia, unspecified organism; E11.9 Type 2 diabetes mellitus without complications; I10 Essential (primary) hypertension; N17.9 Acute kidney failure, unspecified; Z87.891 Personal history of nicotine dependence; Z88.8 Allergy status to other drugs, medicaments and biological substances; Z88.3 Allergy status to other anti-infective agents; Z79.811 Long term (current) use of aromatase inhibitors; Z79.52 Long term (current) use of systemic steroids; Z79.899 Other long term (current) drug therapy
CPT/HCPCS: 36415; 71046; 80048; 83605; 84145; 85025; 87040; 87426; 87486; 87581; 87633; 87798; 99283; J7512

== ENCOUNTER 2024-02-11 15:46 | Emergency (ER) | payer MEDICAID, MEDICARE ==
[~2024-02-11] VITALS: Ht 165.1 cm; Wt 45.4 kg
[~2024-02-11 15:46] MED LIST changes: +LANTINJ4 INJ; -LANTINJ4 SC; +NIRM1TAB13 PO; +PRED10TA2 PO
[2024-02-11] MEDS ORDERED: LANTINJ4 SC (16:50)
[2024-02-11 20:14] LABS: BASO % 0.2 % (0.0-1.0); EOS % 0.3 % (0.0-3.0); HEMATOCRIT 31.2 % (36.0-47.0); HEMOGLOBIN 10.2 g/dl (12.0-15.5); LYMPH # 1.4 10^3/uL (1.5-5.0); LYMPH % 14.4 % (24.0-44.0); MEAN CORPUSCULAR HEMOGLOBIN 32.6 pg (27.0-33.0); MEAN CORPUSCULAR HGB CONC 32.7 g/dl (32.0-36.5); MEAN CORPUSCULAR VOLUME 99.7 fl (80.0-96.0); MONO # 0.9 10^3/uL (0.0-0.8); MONO % 9.3 % (2.0-8.0); NEUTROPHILS # 7.2 10^3/uL (1.5-8.5); NEUTROPHILS % 74.8 % (36.0-66.0); PLATELET COUNT, AUTOMATED 220 10^3/uL (150-450); RED BLOOD COUNT 3.13 10^6/uL (4.00-5.40); WHITE BLOOD COUNT 9.6 10^3/uL (4.0-10.0)
[2024-02-11 20:27] LABS: INR 0.99; PARTIAL THROMBOPLASTIN TIME 35.6 SECONDS (24.8-34.2); PROTHROMBIN TIME 12.8 SECONDS (12.5-14.5)
[2024-02-11 20:41] LABS: ALBUMIN 2.6 G/DL (3.2-5.2); BILIRUBIN,DIRECT 0.1 MG/DL (<0.4); BILIRUBIN,TOTAL 0.4 MG/DL (0.3-1.2); CALCIUM LEVEL 8.7 MG/DL (8.3-10.6); CREATININE FOR GFR 1.57 MG/DL (0.55-1.30); TOTAL PROTEIN 5.6 G/DL (5.7-8.2)
[2024-02-11 20:42] LABS: FREE T4 1.51 NG/DL (0.89-1.76)
[2024-02-11 20:43] LABS: THYROID STIMULATING HORMONE 1.845 uIU/ML (0.55-4.78)
[2024-02-11] MEDS: NS 500 ML IV ONE (22:22)
[2024-02-11] MEDS: ACETAMINOPHEN *IV* 1,000 MG in IV 1 EA IV ONE (22:23)
[2024-02-11] MEDS: predniSONE 5 MG TAB PO ONE (23:02)
[2024-02-11 23:03] VITALS: BP 164/84
[2024-02-11] MEDS: dilTIAZem 120MG **CD** CAPSULE PO ONE (23:03)
[2024-02-12] MEDS ORDERED: DIFI200T PO (00:39)
[2024-02-12] MEDS: FIDAXOMICIN 200 MG TAB (DIFICID) PO ONE (00:48)
[2024-02-12 00:58] VITALS: BP 124/88; TEMP 98.8; O2SAT 98
== END 2024-02-12 01:31 | disposition home or self-care (01) ==
LOC: M ED 15:46
DX: U07.1 COVID-19 (principal); A04.72 Enterocolitis due to Clostridium difficile, not specified as recurrent; J44.9 Chronic obstructive pulmonary disease, unspecified; N17.9 Acute kidney failure, unspecified; Z90.49 Acquired absence of other specified parts of digestive tract; Z94.0 Kidney transplant status; Z79.52 Long term (current) use of systemic steroids; Z79.811 Long term (current) use of aromatase inhibitors; Z79.899 Other long term (current) drug therapy; Z88.8 Allergy status to other drugs, medicaments and biological substances
CPT/HCPCS: 71046; 80048; 80076; 81001; 84439; 84443; 85025; 85610; 85730; 87040; 87086; 87324; 87486; 87507; 87581; 87633; 87798; 93005; 93041; 94760; 96365; 99285; J0131; J7512

== ENCOUNTER 2024-02-13 15:09 | Inpatient (IN) | payer MEDICARE ==
[~2024-02-13] VITALS: Ht 165.1 cm; Wt 56.6 kg
[~2024-02-13 15:09] MED LIST changes: +LANTINJ4 SC
[2024-02-13 17:38] LABS: CALCIUM LEVEL 8.6 MG/DL (8.3-10.6); CREATININE FOR GFR 1.64 MG/DL (0.55-1.30); GLOMERULAR FILTRATION RATE 33.3 (>45)
[2024-02-13 18:24] LABS: ALBUMIN 2.6 G/DL (3.2-5.2); BILIRUBIN,DIRECT 0.1 MG/DL (<0.4); BILIRUBIN,TOTAL 0.4 MG/DL (0.3-1.2); TOTAL PROTEIN 5.3 G/DL (5.7-8.2)
[2024-02-13 20:15] LABS: BASO % 0.2 % (0.0-1.0); EOS % 0.1 % (0.0-3.0); HEMATOCRIT 28.7 % (36.0-47.0); HEMOGLOBIN 9.4 g/dl (12.0-15.5); LYMPH # 1.3 10^3/uL (1.5-5.0); MEAN CORPUSCULAR HEMOGLOBIN 32.3 pg (27.0-33.0); MEAN CORPUSCULAR HGB CONC 32.8 g/dl (32.0-36.5); MEAN CORPUSCULAR VOLUME 98.6 fl (80.0-96.0); MONO # 0.7 10^3/uL (0.0-0.8); MONO % 7.5 % (2.0-8.0); NEUTROPHILS # 7.3 10^3/uL (1.5-8.5); NEUTROPHILS % 77.8 % (36.0-66.0); PLATELET COUNT, AUTOMATED 200 10^3/uL (150-450); RED BLOOD COUNT 2.91 10^6/uL (4.00-5.40); WHITE BLOOD COUNT 9.4 10^3/uL (4.0-10.0)
[2024-02-13] MEDS: ACETAMINOPHEN 325 MG TAB PO ONE (23:00)
[2024-02-13 23:19] LABS: BASO % 0.2 % (0.0-1.0); EOS % 0.1 % (0.0-3.0); HEMATOCRIT 27.7 % (36.0-47.0); LYMPH # 1.4 10^3/uL (1.5-5.0); LYMPH % 14.7 % (24.0-44.0); MEAN CORPUSCULAR HEMOGLOBIN 31.9 pg (27.0-33.0); MEAN CORPUSCULAR HGB CONC 32.5 g/dl (32.0-36.5); MEAN CORPUSCULAR VOLUME 98.2 fl (80.0-96.0); MONO # 0.9 10^3/uL (0.0-0.8); NEUTROPHILS # 6.8 10^3/uL (1.5-8.5); NEUTROPHILS % 74.2 % (36.0-66.0); PLATELET COUNT, AUTOMATED 190 10^3/uL (150-450); RED BLOOD COUNT 2.82 10^6/uL (4.00-5.40); WHITE BLOOD COUNT 9.2 10^3/uL (4.0-10.0)
[2024-02-13 23:40] LABS: ALBUMIN 2.3 G/DL (3.2-5.2); BILIRUBIN,DIRECT 0.1 MG/DL (<0.4); BILIRUBIN,TOTAL 0.4 MG/DL (0.3-1.2); CALCIUM LEVEL 8.1 MG/DL (8.3-10.6); CREATININE FOR GFR 1.66 MG/DL (0.55-1.30); GLOMERULAR FILTRATION RATE 32.8 (>45); POTASSIUM SERUM 3.6 MMOL/L (3.5-5.1); TOTAL PROTEIN 4.8 G/DL (5.7-8.2)
[2024-02-14] MEDS ORDERED: DARB100SYR INJ (01:14)
[2024-02-14] MEDS ORDERED: OCUVTAB4 PO (01:14)
[2024-02-14] MEDS ORDERED: DIFI200T PO (01:14)
[2024-02-14] MEDS ORDERED: ALBU8.5H INH (01:14)
[2024-02-14] MEDS ORDERED: HOME MED LIST COMPLETE! XX SCH (01:15)
[2024-02-14] MEDS: NS 1,000 ML IV ONE (02:47)
[2024-02-14 03:44] LABS: PROCALCITONIN 0.44 ng/ml
[2024-02-14] MEDS ORDERED: MOM 30ML SUSPENSION UDC PO PRN (04:05)
[2024-02-14] MEDS ORDERED: MAALOX 30 ML SUSP *UDC PO PRN (04:05)
[2024-02-14] MEDS ORDERED: DEXTROSE 50% 50ML SYRINGE IV PRN (04:15)
[2024-02-14] MEDS ORDERED: GLUCAGON INJ 1MG VIAL SC PRN (04:15)
[2024-02-14 05:23] VITALS: BP 160/80; TEMP 97.5; O2SAT 97
[2024-02-14] MEDS: cefTRIAXone SOD 2 GM in DEXTROSE 5% (D5W) ADV/MINI-BAG 50 ML IV SCH (06:32)
[2024-02-14] MEDS: INSULIN LISPRO (NovoLOG) PER UNIT SC SCH ×2 (07:30→21:00)
[2024-02-14 08:26] LABS: PERCENT SATURATION 6.1 % (13.2-45.0)
[2024-02-14 08:43] LABS: BASO % 0.1 % (0.0-1.0); EOS % 0.1 % (0.0-3.0); HEMOGLOBIN 8.7 g/dl (12.0-15.5); LYMPH # 1.5 10^3/uL (1.5-5.0); MEAN CORPUSCULAR HEMOGLOBIN 32.8 pg (27.0-33.0); MEAN CORPUSCULAR HGB CONC 33.5 g/dl (32.0-36.5); MEAN CORPUSCULAR VOLUME 98.1 fl (80.0-96.0); MONO # 0.8 10^3/uL (0.0-0.8); MONO % 10.8 % (2.0-8.0); NEUTROPHILS # 4.7 10^3/uL (1.5-8.5); NEUTROPHILS % 67.4 % (36.0-66.0); PLATELET COUNT, AUTOMATED 160 10^3/uL (150-450); RED BLOOD COUNT 2.65 10^6/uL (4.00-5.40); WHITE BLOOD COUNT 6.9 10^3/uL (4.0-10.0)
[2024-02-14 08:53] LABS: BILIRUBIN,TOTAL 0.3 MG/DL (0.3-1.2); CALCIUM LEVEL 7.9 MG/DL (8.3-10.6); CREATININE FOR GFR 1.42 MG/DL (0.55-1.30); FERRITIN 2117.1 NG/ML (7.3-270.7); GLOMERULAR FILTRATION RATE 39.3 (>45); POTASSIUM SERUM 3.7 MMOL/L (3.5-5.1); TOTAL PROTEIN 4.4 G/DL (5.7-8.2)
[2024-02-14] MEDS ORDERED: FUROSEMIDE 40 MG TAB PO SCH (09:00)
[2024-02-14] MEDS ORDERED: SODIUM BICARBONATE 325 MG TAB PO SCH (09:00)
[2024-02-14] MEDS ORDERED: LOSARTAN 50MG TABLET PO SCH (09:00)
[2024-02-14] MEDS: **hydrALAZINE HCL** 25 MG TAB PO SCH (09:00)
[2024-02-14] MEDS: FIDAXOMICIN 200 MG TAB (DIFICID) PO SCH (09:26)
[2024-02-14] MEDS: DOXYCYCLINE HYCLATE 100MG TABLET PO SCH (09:28)
[2024-02-14] MEDS: SODIUM BICARBONATE 325 MG TAB PO SCH (09:28)
[2024-02-14] MEDS: dilTIAZem 60 MG TAB PO SCH (09:28)
[2024-02-14] MEDS: ACYCLOVIR 200 MG CAPSULE PO SCH (09:28)
[2024-02-14] MEDS: PIPERACILLIN/TAZOBACTAM SOD 3.375 GM in DEXTROSE 5% (D5W) ADV/MINI-BAG 50 ML IV SCH (12:00)
[2024-02-14] MEDS: EXCEDRIN MIGRAINE TABLET PO ONE (12:01)
[2024-02-14 12:16] VITALS: BP 141/63; TEMP 98.2; O2SAT 98
[2024-02-14] MEDS: LACTOBACILLUS ACIDOPHILUS CAP (BACID) PO SCH (18:00)
[2024-02-14] MEDS: SODIUM BICARBONATE 100 MEQ in D5W 1,000 ML IV SCH (18:00)
[2024-02-14 19:41] LABS: IMMUNOGLOBULIN A 244.8 MG/DL (40-350); IMMUNOGLOBULIN G 392 MG/DL (650-1600)
[2024-02-14 19:53] LABS: PROCALCITONIN 0.43 ng/ml
[2024-02-14 20:55] VITALS: BP 141/66; TEMP 97.5; O2SAT 97
[2024-02-14] MEDS ORDERED: MYCOPHENOLIC 180 MG PO SCH (21:00)
[2024-02-14] MEDS: predniSONE 5 MG TAB PO SCH (21:03)
[2024-02-14] MEDS: LEVEMIR (INSULIN DETEMIR) 1 UNITS/0.01ML SC SCH (21:10)
[2024-02-14] MEDS: RAMELTEON 8 MG TAB (ROZEREM) PO PRN (23:39)
[2024-02-15] MEDS: ACETAMINOPHEN 325 MG TAB PO PRN (00:09)
[2024-02-15 00:42] LABS: BASO % 0.1 % (0.0-1.0); EOS # 0.1 10^3/uL (0.0-0.5); EOS % 0.9 % (0.0-3.0); HEMATOCRIT 26.7 % (36.0-47.0); HEMOGLOBIN 8.8 g/dl (12.0-15.5); LYMPH % 13.4 % (24.0-44.0); MEAN CORPUSCULAR HEMOGLOBIN 32.2 pg (27.0-33.0); MEAN CORPUSCULAR VOLUME 97.8 fl (80.0-96.0); MONO # 0.7 10^3/uL (0.0-0.8); MONO % 8.6 % (2.0-8.0); NEUTROPHILS # 5.8 10^3/uL (1.5-8.5); NEUTROPHILS % 76.5 % (36.0-66.0); PLATELET COUNT, AUTOMATED 180 10^3/uL (150-450); RED BLOOD COUNT 2.73 10^6/uL (4.00-5.40); WHITE BLOOD COUNT 7.6 10^3/uL (4.0-10.0)
[2024-02-15] MEDS ORDERED: VANCOMYCIN HCL 760 MG in IV FLUID PLACE HOLDER 1 EA IV SCH (00:55)
[2024-02-15 01:11] LABS: BILIRUBIN,DIRECT 0.1 MG/DL (<0.4); BILIRUBIN,TOTAL 0.3 MG/DL (0.3-1.2); CALCIUM LEVEL 7.9 MG/DL (8.3-10.6); CREATININE FOR GFR 1.67 MG/DL (0.55-1.30); GLOMERULAR FILTRATION RATE 32.6 (>45); MAGNESIUM LEVEL 1.4 MG/DL (1.8-2.4); POTASSIUM SERUM 3.5 MMOL/L (3.5-5.1); TOTAL PROTEIN 4.5 G/DL (5.7-8.2)
[2024-02-15] MEDS: VANCOMYCIN 1,000 MG/200 ML IV BAG *LOAD IV ONE (01:31)
[2024-02-15] MEDS: MAGNESIUM OXIDE 400MG TAB (MAG-OX) PO ONE (01:47)
[2024-02-15 02:40] VITALS: TEMP 99.9
[2024-02-15] MEDS: GLUCOSE 4 GM CHEW PO PRN (02:47)
[2024-02-15 04:41] VITALS: BP 118/60; TEMP 98.3; O2SAT 95
[2024-02-15 05:59] LABS: BASO % 0.3 % (0.0-1.0); EOS % 0.2 % (0.0-3.0); HEMATOCRIT 25.7 % (36.0-47.0); HEMOGLOBIN 8.5 g/dl (12.0-15.5); LYMPH # 0.7 10^3/uL (1.5-5.0); LYMPH % 10.1 % (24.0-44.0); MEAN CORPUSCULAR HEMOGLOBIN 32.6 pg (27.0-33.0); MEAN CORPUSCULAR HGB CONC 33.1 g/dl (32.0-36.5); MEAN CORPUSCULAR VOLUME 98.5 fl (80.0-96.0); MONO # 0.4 10^3/uL (0.0-0.8); MONO % 6.7 % (2.0-8.0); NEUTROPHILS # 5.3 10^3/uL (1.5-8.5); NEUTROPHILS % 81.9 % (36.0-66.0); PLATELET COUNT, AUTOMATED 164 10^3/uL (150-450); RED BLOOD COUNT 2.61 10^6/uL (4.00-5.40); WHITE BLOOD COUNT 6.5 10^3/uL (4.0-10.0)
[2024-02-15 06:24] LABS: ALBUMIN 1.8 G/DL (3.2-5.2); BILIRUBIN,TOTAL 0.3 MG/DL (0.3-1.2); CALCIUM LEVEL 7.6 MG/DL (8.3-10.6); CREATININE FOR GFR 1.7 MG/DL (0.55-1.30); GLOMERULAR FILTRATION RATE 31.9 (>45); POTASSIUM SERUM 3.6 MMOL/L (3.5-5.1); TOTAL PROTEIN 4.2 G/DL (5.7-8.2)
[2024-02-15] MEDS ORDERED: IMMUNE GLOBULIN 10% 0 GM in IV 1 EA IV SCH (09:15)
[2024-02-15] MEDS ORDERED: VANCOMYCIN HCL 500 MG in DEXTROSE 5% (D5W) MINI-BAG PLU 100 ML IV SCH (10:00)
[2024-02-15] MEDS: MAGNESIUM OXIDE 400MG TAB (MAG-OX) PO SCH (10:35)
[2024-02-15] MEDS: MAG SULF 1GM/100ML (MAG RUN) 1 GM in IV 1 EA IV ONE (10:38)
[2024-02-15 12:00] VITALS: BP 136/66; TEMP 97.9; O2SAT 98
[2024-02-15] MEDS: IMMUNE GLOBULIN 10% 20 GM in IV 1 EA IV ONE (12:59)
[2024-02-15 16:51] VITALS: BP 161/85; TEMP 102.1; O2SAT 99
[2024-02-15] MEDS: diphenhydrAMINE 50MG/ML VIAL IV ONE ×2 (17:53→22:53)
[2024-02-15] MEDS: methylPREDNISolone 125MG 2ML VIAL IV ONE (17:53)
[2024-02-15] MEDS: ACETAMINOPHEN *IV* 500 MG in IV 1 EA IV ONE (19:07)
[2024-02-15 20:20] VITALS: BP 160/72; TEMP 97.9; O2SAT 90
[2024-02-16 03:30] VITALS: BP 145/66; TEMP 97.3; O2SAT 93
[2024-02-16 06:55] LABS: BASO % 0.2 % (0.0-1.0); HEMATOCRIT 30.3 % (36.0-47.0); LYMPH # 0.6 10^3/uL (1.5-5.0); LYMPH % 10.9 % (24.0-44.0); MEAN CORPUSCULAR HEMOGLOBIN 32.4 pg (27.0-33.0); MEAN CORPUSCULAR VOLUME 98.1 fl (80.0-96.0); MONO # 0.3 10^3/uL (0.0-0.8); MONO % 5.4 % (2.0-8.0); NEUTROPHILS # 4.6 10^3/uL (1.5-8.5); NEUTROPHILS % 82.6 % (36.0-66.0); PLATELET COUNT, AUTOMATED 188 10^3/uL (150-450); RED BLOOD COUNT 3.09 10^6/uL (4.00-5.40); WHITE BLOOD COUNT 5.6 10^3/uL (4.0-10.0)
[2024-02-16 07:30] LABS: PROCALCITONIN 0.32 ng/ml
[2024-02-16 07:47] LABS: CALCIUM LEVEL 8.6 MG/DL (8.3-10.6); CREATININE FOR GFR 1.86 MG/DL (0.55-1.30); GLOMERULAR FILTRATION RATE 28.8 (>45); POTASSIUM SERUM 4.4 MMOL/L (3.5-5.1)
[2024-02-16 12:00] VITALS: BP 139/76; TEMP 97.5; O2SAT 95
[2024-02-16] MEDS: HEPARIN SOD (PORCINE) 5000UNITS/ML 1ML VIAL/SYRINGE SQ SCH (14:00)
[2024-02-16] MEDS: NYSTATIN 500,000U/5ML SUSP UDC SS SCH ×2 (14:10→17:16)
[2024-02-16] MEDS: SODIUM BICARBONATE 150 MEQ in D5W 1,000 ML IV SCH (14:10)
[2024-02-16 20:17] VITALS: BP 137/75; TEMP 98.1; O2SAT 95
[2024-02-16] MEDS: ALBUTEROL 90 MCG/ACT 8GM HFA INHALER INH PRN (21:06)
[2024-02-17 04:18] VITALS: BP 133/68; TEMP 97.9; O2SAT 93
[2024-02-17 06:02] LABS: BASO % 0.1 % (0.0-1.0); HEMATOCRIT 24.9 % (36.0-47.0); HEMOGLOBIN 8.3 g/dl (12.0-15.5); LYMPH # 0.9 10^3/uL (1.5-5.0); LYMPH % 9.8 % (24.0-44.0); MEAN CORPUSCULAR HEMOGLOBIN 32.3 pg (27.0-33.0); MEAN CORPUSCULAR HGB CONC 33.3 g/dl (32.0-36.5); MEAN CORPUSCULAR VOLUME 96.9 fl (80.0-96.0); MONO # 0.7 10^3/uL (0.0-0.8); MONO % 7.7 % (2.0-8.0); NEUTROPHILS # 7.1 10^3/uL (1.5-8.5); NEUTROPHILS % 81.4 % (36.0-66.0); PLATELET COUNT, AUTOMATED 192 10^3/uL (150-450); RED BLOOD COUNT 2.57 10^6/uL (4.00-5.40); WHITE BLOOD COUNT 8.7 10^3/uL (4.0-10.0)
[2024-02-17 06:34] LABS: CALCIUM LEVEL 7.9 MG/DL (8.3-10.6); CREATININE FOR GFR 2.32 MG/DL (0.55-1.30); GLOMERULAR FILTRATION RATE 22.3 (>45); MAGNESIUM LEVEL 2.2 MG/DL (1.8-2.4)
[2024-02-17] MEDS: LEVEMIR (INSULIN DETEMIR) 1 UNITS/0.01ML SC SCH (08:26)
[2024-02-17 12:00] VITALS: BP 139/82; TEMP 97.9; O2SAT 94
[2024-02-17] MEDS: SODIUM BICARBONATE 325 MG TAB PO SCH (17:21)
[2024-02-17 20:00] VITALS: BP 149/82; TEMP 98.8; O2SAT 96
[2024-02-18 04:00] VITALS: BP 152/84; TEMP 97.9; O2SAT 97
[2024-02-18 05:51] LABS: BASO % 0.1 % (0.0-1.0); HEMATOCRIT 26.7 % (36.0-47.0); LYMPH # 0.9 10^3/uL (1.5-5.0); LYMPH % 9.6 % (24.0-44.0); MEAN CORPUSCULAR HEMOGLOBIN 32.4 pg (27.0-33.0); MEAN CORPUSCULAR HGB CONC 33.7 g/dl (32.0-36.5); MONO # 0.8 10^3/uL (0.0-0.8); MONO % 8.7 % (2.0-8.0); NEUTROPHILS # 7.5 10^3/uL (1.5-8.5); NEUTROPHILS % 80.4 % (36.0-66.0); PLATELET COUNT, AUTOMATED 207 10^3/uL (150-450); RED BLOOD COUNT 2.78 10^6/uL (4.00-5.40); WHITE BLOOD COUNT 9.3 10^3/uL (4.0-10.0)
[2024-02-18 06:17] LABS: CREATININE FOR GFR 2.32 MG/DL (0.55-1.30); GLOMERULAR FILTRATION RATE 22.3 (>45); MAGNESIUM LEVEL 2.4 MG/DL (1.8-2.4); POTASSIUM SERUM 3.6 MMOL/L (3.5-5.1)
[2024-02-18] MEDS: LEVEMIR (INSULIN DETEMIR) 1 UNITS/0.01ML SC SCH (09:00)
[2024-02-18] MEDS: FIORICET TAB PO ONE (10:11)
[2024-02-18] MEDS: FLUTICASONE PROP 0.05% NASAL SPRAY 16 GM (FLONASE) NARES SCH (11:05)
[2024-02-18] MEDS: SODIUM CHLORIDE NASAL 0.65% SPRAY BTL (OCEAN) SCH (11:05)
[2024-02-18 12:00] VITALS: BP 137/71; TEMP 97.9; O2SAT 93
[2024-02-18 16:14] VITALS: TEMP 100.6
[2024-02-18 19:15] VITALS: TEMP 100.5
[2024-02-18 20:00] VITALS: BP 175/88; TEMP 100.9; O2SAT 97
[2024-02-18 21:02] LABS: MYCOPLASMA PNEUMONIAE IGG <= 0.90 (<=0.90)
[2024-02-19 04:00] VITALS: BP 159/86; TEMP 98.7; O2SAT 96
[2024-02-19 06:23] LABS: HEMATOCRIT 26.7 % (36.0-47.0); HEMOGLOBIN 8.8 g/dl (12.0-15.5); MEAN CORPUSCULAR HEMOGLOBIN 31.8 pg (27.0-33.0); MEAN CORPUSCULAR VOLUME 96.4 fl (80.0-96.0); PLATELET COUNT, AUTOMATED 211 10^3/uL (150-450); RED BLOOD COUNT 2.77 10^6/uL (4.00-5.40); WHITE BLOOD COUNT 6.4 10^3/uL (4.0-10.0)
[2024-02-19 06:47] LABS: CREATININE FOR GFR 1.9 MG/DL (0.55-1.30); GLOMERULAR FILTRATION RATE 28.1 (>45); MAGNESIUM LEVEL 2.5 MG/DL (1.8-2.4); POTASSIUM SERUM 4.1 MMOL/L (3.5-5.1)
[2024-02-19 07:12] LABS: PROCALCITONIN 0.36 ng/ml
[2024-02-19 08:29] LABS: ATYPICAL LYMPH 1 % (0-5); HYPOCHROMASIA 2+; LYMPHOCYTES 13 % (16-44); MONOCYTES 4 % (0-5); MYELOCYTES 1 % (0-0); NEUTROPHILS 81 % (28-66)
[2024-02-19 08:30] LABS: CRENATED RBC 1+; SCHISTOCYTES 3+
[2024-02-19 08:31] LABS: ANISOCYTOSIS 2+; POIKILOCYTOSIS 2+
[2024-02-19 08:43] LABS: PLATELET ESTIMATE NORMAL (NORMAL)
[2024-02-19 12:00] VITALS: BP 164/83; TEMP 98.4; O2SAT 91
[2024-02-19] MEDS: guaiFENesin ER TABLET 600 MG TAB PO SCH (12:28)
[2024-02-19] MEDS: FUROSEMIDE 100MG/10ML VIAL IV ONE (12:32)
[2024-02-19 17:30] VITALS: TEMP 100
[2024-02-19 18:33] LABS: C REACTIVE PROTEIN QUANTITATIV 3.6 MG/DL (<1.0)
[2024-02-19 18:34] LABS: ALBUMIN 1.8 G/DL (3.2-5.2); BILIRUBIN,DIRECT 0.1 MG/DL (<0.4); BILIRUBIN,TOTAL 0.3 MG/DL (0.3-1.2); TOTAL PROTEIN 5.1 G/DL (5.7-8.2)
[2024-02-19 18:40] VITALS: TEMP 100
[2024-02-19 20:00] VITALS: BP 179/90; TEMP 98.4; O2SAT 94
[2024-02-20 04:00] VITALS: BP 165/93; TEMP 97.4; O2SAT 92
[2024-02-20 05:58] LABS: BASO % 0.2 % (0.0-1.0); EOS % 0.2 % (0.0-3.0); HEMOGLOBIN 9.5 g/dl (12.0-15.5); LYMPH # 1.1 10^3/uL (1.5-5.0); LYMPH % 18.7 % (24.0-44.0); MEAN CORPUSCULAR HEMOGLOBIN 31.5 pg (27.0-33.0); MEAN CORPUSCULAR HGB CONC 32.8 g/dl (32.0-36.5); MONO # 0.6 10^3/uL (0.0-0.8); MONO % 10.4 % (2.0-8.0); NEUTROPHILS # 4.1 10^3/uL (1.5-8.5); NEUTROPHILS % 69.2 % (36.0-66.0); PLATELET COUNT, AUTOMATED 242 10^3/uL (150-450); RED BLOOD COUNT 3.02 10^6/uL (4.00-5.40)
[2024-02-20 06:28] LABS: ALBUMIN 1.7 G/DL (3.2-5.2); BILIRUBIN,DIRECT 0.1 MG/DL (<0.4); BILIRUBIN,TOTAL 0.4 MG/DL (0.3-1.2); CALCIUM LEVEL 8.1 MG/DL (8.3-10.6); CREATININE FOR GFR 1.75 MG/DL (0.55-1.30); GLOMERULAR FILTRATION RATE 30.9 (>45); MAGNESIUM LEVEL 2.5 MG/DL (1.8-2.4); TOTAL PROTEIN 4.8 G/DL (5.7-8.2)
[2024-02-20 08:18] LABS: C REACTIVE PROTEIN QUANTITATIV 3.3 MG/DL (<1.0)
[2024-02-20 09:19] VITALS: BP 163/91
[2024-02-20] MEDS ORDERED: DIFI200T PO (10:35)
[2024-02-20] MEDS: FUROSEMIDE 40 MG TAB PO SCH (12:46)
[2024-02-20] MEDS ORDERED: SODI325T9 PO (14:39)
[2024-02-20 19:53] LABS: URINE STREP PNEUMONIAE ANTIGEN NOT DETECTED (NOT DETECT)
[2024-02-21 23:47] LABS: URINE STREP PNEUMONIAE ANTIGEN NOT DETECTED (NOT DETECT)
== END 2024-02-20 14:59 | disposition home or self-care (01) | DRG 371 ==
LOC: M ED 15:09 → M ED INP 02-14 04:05 → M MSPAV 02-14 05:17 → EEVIPCON 02-14 15:03 → OBSVTOIN 02-14 15:03
PROVIDERS: ADMIT Student in an Organized Health Care Education/Training Program; ATTEND Internal Medicine
DX: A04.72 Enterocolitis due to Clostridium difficile, not specified as recurrent (principal); U07.1 COVID-19; J12.82 Pneumonia due to coronavirus disease 2019; Z68.1 Body mass index [BMI] 19.9 or less, adult; E46 Unspecified protein-calorie malnutrition; B37.0 Candidal stomatitis; E87.22 Chronic metabolic acidosis; D80.1 Nonfamilial hypogammaglobulinemia; N17.9 Acute kidney failure, unspecified; D84.9 Immunodeficiency, unspecified; E87.1 Hypo-osmolality and hyponatremia; Z94.0 Kidney transplant status; I13.0 Hypertensive heart and chronic kidney disease with heart failure and stage 1 through stage 4 chronic kidney disease, or unspecified chronic kidney disease; E11.22 Type 2 diabetes mellitus with diabetic chronic kidney disease; I15.0 Renovascular hypertension; E11.649 Type 2 diabetes mellitus with hypoglycemia without coma; D63.1 Anemia in chronic kidney disease; E83.42 Hypomagnesemia; F17.210 Nicotine dependence, cigarettes, uncomplicated; Z79.4 Long term (current) use of insulin; N18.9 Chronic kidney disease, unspecified; Z88.8 Allergy status to other drugs, medicaments and biological substances; Z79.899 Other long term (current) drug therapy; Z90.81 Acquired absence of spleen; Z90.49 Acquired absence of other specified parts of digestive tract; Z79.52 Long term (current) use of systemic steroids; Z96.643 Presence of artificial hip joint, bilateral; Z98.41 Cataract extraction status, right eye; Z98.42 Cataract extraction status, left eye; Z85.89 Personal history of malignant neoplasm of other organs and systems

== ENCOUNTER 2024-02-22 11:30 | Outpatient (CLI) | payer MEDICARE, MEDICAID ==
[~2024-02-22] VITALS: Ht 165.1 cm; Wt 56.6 kg
[~2024-02-22 11:30] MED LIST changes: +ALBU8.5H INH; +DARB100SYR INJ; +OCUVTAB4 PO
[2024-02-22 11:52] VITALS: BP 158/74; O2SAT 98
[2024-02-22] MEDS: NS IV ONE (12:27)
[2024-02-22] MEDS: BELATACEPT IV ONE (12:27)
[2024-02-22 13:00] VITALS: BP 161/78; O2SAT 97
== END 2024-02-22 13:05 ==
LOC: M INFU 11:30
PROVIDERS: ATTEND Nurse Practitioner Family
DX: Z94.0 Kidney transplant status (principal); Z88.8 Allergy status to other drugs, medicaments and biological substances
CPT/HCPCS: 96365; J0485

== ENCOUNTER 2024-03-27 16:00 | Outpatient (CLI) | payer MEDICARE, MEDICAID ==
[~2024-03-27] VITALS: Ht 165.1 cm; Wt 47.0 kg
[~2024-03-27 16:00] MED LIST changes: +NS 1,000 ML IV SCH
[2024-03-27 16:08] VITALS: BP 184/94; O2SAT 96
[2024-03-27] MEDS: NS IV ONE (16:30)
[2024-03-27] MEDS: BELATACEPT IV ONE (16:30)
[2024-03-27 17:04] VITALS: BP 174/88; O2SAT 99
== END 2024-03-27 17:05 ==
LOC: M INFU 16:00
PROVIDERS: ATTEND Nurse Practitioner Family
DX: Z94.0 Kidney transplant status (principal); Z88.8 Allergy status to other drugs, medicaments and biological substances
CPT/HCPCS: 96365; J0485

== ENCOUNTER 2024-04-24 13:05 | Outpatient (CLI) | payer MEDICARE, MEDICAID ==
[~2024-04-24] VITALS: Ht 165.1 cm; Wt 46.8 kg
[~2024-04-24 13:05] MED LIST changes: -NS 1,000 ML IV SCH
[2024-04-24 13:10] VITALS: BP 175/94; O2SAT 98
[2024-04-24] MEDS: BELATACEPT IV ONE (14:17)
[2024-04-24] MEDS: NS IV ONE (14:17)
[2024-04-24 14:55] VITALS: BP_SYST 145; BP_SYST 151; BP_DIAS 80; BP_DIAS 82; O2SAT 100; O2SAT 99
== END 2024-04-24 14:55 ==
LOC: M INFU 13:05
PROVIDERS: ATTEND Nurse Practitioner Family
DX: Z94.0 Kidney transplant status (principal); Z88.8 Allergy status to other drugs, medicaments and biological substances
CPT/HCPCS: 96365; J0485

== ENCOUNTER 2024-05-22 13:00 | Outpatient (CLI) | payer MEDICARE, MEDICAID ==
[~2024-05-22] VITALS: Ht 165.1 cm; Wt 46.6 kg
[2024-05-22 13:00] VITALS: BP 180/78; O2SAT 100
[2024-05-22] MEDS: NS IV ONE (14:02)
[2024-05-22] MEDS: BELATACEPT IV ONE (14:02)
[2024-05-22 14:35] VITALS: BP 170/88; O2SAT 100
== END 2024-05-22 14:35 ==
LOC: M INFU 13:00
PROVIDERS: ATTEND Nurse Practitioner Family
DX: Z94.0 Kidney transplant status (principal); Z88.8 Allergy status to other drugs, medicaments and biological substances
CPT/HCPCS: 96365; J0485

== ENCOUNTER 2024-06-18 11:53 | Outpatient (CLI) | payer MEDICARE, MEDICAID ==
[~2024-06-18] VITALS: Ht 165.1 cm; Wt 46.8 kg
[2024-06-18 12:09] VITALS: BP 187/86; O2SAT 98
[2024-06-18] MEDS: BELATACEPT IV ONE (12:38)
[2024-06-18] MEDS: NS IV ONE (12:38)
== END 2024-06-18 13:20 ==
LOC: M INFU 11:53
PROVIDERS: ATTEND Nurse Practitioner Family
DX: Z94.0 Kidney transplant status (principal); Z88.8 Allergy status to other drugs, medicaments and biological substances
CPT/HCPCS: 96365; J0485

== ENCOUNTER 2024-07-16 11:05 | Outpatient (CLI) | payer MEDICARE, MEDICAID ==
[~2024-07-16] VITALS: Ht 165.1 cm; Wt 47.0 kg
[2024-07-16 11:00] VITALS: BP 129/72; O2SAT 98
[2024-07-16] MEDS: NS IV ONE (11:32)
[2024-07-16] MEDS: BELATACEPT IV ONE (11:32)
[2024-07-16 12:08] VITALS: BP 147/72; O2SAT 98
== END 2024-07-16 12:10 ==
LOC: M INFU 11:05
PROVIDERS: ATTEND Internal Medicine Nephrology
DX: Z94.0 Kidney transplant status (principal); Z88.8 Allergy status to other drugs, medicaments and biological substances
CPT/HCPCS: 96365; J0485

== ENCOUNTER → 2024-07-29 | Outpatient (CLI) | payer MEDICARE, MEDICAID | LOC: M RAD 11:36 | PROVIDERS: ATTEND Internal Medicine Nephrology | DX: I65.29 Occlusion and stenosis of unspecified carotid artery (principal) ==

== ENCOUNTER 2024-08-13 12:12 | Outpatient (CLI) | payer MEDICARE, MEDICAID ==
[~2024-08-13] VITALS: Ht 165.1 cm; Wt 46.8 kg
[2024-08-13 12:10] VITALS: BP 159/89; O2SAT 98
[2024-08-13] MEDS: NS IV ONE (13:02)
[2024-08-13] MEDS: BELATACEPT IV ONE (13:02)
[2024-08-13 13:40] VITALS: BP 168/72; O2SAT 100
== END 2024-08-13 13:45 | disposition home or self-care (01) ==
LOC: M INFU 12:12
PROVIDERS: ATTEND Nurse Practitioner Family
DX: Z94.0 Kidney transplant status (principal); Z88.8 Allergy status to other drugs, medicaments and biological substances
CPT/HCPCS: 96365; J0485